=== PATIENT | male | born 1970 | race African-American/Black ===

== ENCOUNTER 2016-10-22 17:14 | Inpatient (IN) ==
--- NOTE | 2016-10-22 20:21 | XRay Report ---
Portable chest Date: 10/22/2016 Clinical history: Shortness of breath Comparison: 10/21/2016 Technique: Portable AP sitting chest Findings: The heart is larger in size with left ventricular prominence and uncoiling of aorta. Progressive parenchymal findings especially in the lower lung zones. Stable mediastinum with degenerative changes. Old healed fracture of the distal left clavicle with chronic volume loss in the distal right clavicle. Impression: The heart is larger in size with recurrent mild CHF. PROCEDURE INTERPRETED AT [facility] DEPARTMENT OF RADIOLOGY Final Report Signed by: Dr. Savannah Flanagan
[2016-10-22 20:46] LABS: Basophils % 0.2 % (0.0-0.8); Eosinophils # 0.2 10*3/uL (0.0-0.87); Hematocrit 24.8 VOL% (42.0-52.0); Hemoglobin 7.3 GM/DL (14.0-18.0); Immature Granulocytes % 0.7 %; Immature Granulocytes Absolute 0.09 #; Lymphocytes % 16.3 % (21.2-54.2); Mean Corpuscular HGB Conc 29.4 GM/DL (32-36); Mean Corpuscular Hemoglobin 24 PG (27-34); Mean Corpuscular Volume 80.5 FL (87-102); Mean Platelet Volume 8.8 FL (9.6-12.0); Monocytes # 1.3 10*3/uL (0.11-0.8); Monocytes % 10.8 % (1.7-12.7); Neutrophils # 8.4 10*3/uL (1.4-7.4); Platelet Count 283 T/CUMM (130-400); Red Blood Count 3.08 MC/CUMM (3.8-5.5); Red Cell Distribution Width 16.8 % (9.3-17.3); White Blood Count 12.1 T/CUMM (4-12)
[2016-10-22 20:58] LABS: INR 1.2; PT Patient Result 12.9 SECS; Partial Thromboplastin Time 35.3 SECS (0-40)
[2016-10-22 21:24] LABS: Albumin 2.3 G/DL (3.4-5.0); Bilirubin,Total 0.6 MG/DL (0.2-1.0); Osmolality,Calculated 294.7 MOS/KG (273-304); Potassium 3.7 MMOL/L (3.5-5.1)
[2016-10-22 21:27] LABS: Troponin I Only 0.101 NG/ML (0.00-0.045)
--- NOTE | 2016-10-22 22:18 | EKG Report ---
Stationary ECG Study [facility] ER Test Date: 10/22/2016 10:15:01 PM Pat Name: LEYLA MOREJON Department: Room: 524 Gender: M Habilitation Worker: : 1970 Requested by: Flip Swann Order Number: [id number] Reading MD: DAVE CARMONA Intervals [place] Rate: 80 P: 39 UT: 215 QRS: -5 QRSD: 112 T: 87 QT: 383 QTc: 419 Interpretive Statements SINUS RHYTHM WITH PROLONGED UT INTERVAL WITH FREQUENT VENTRICULAR PREMATURE COMPLEXES LEFT VENTRICULAR HYPERTROPHY AND ST-T CHANGE Electronically Signed On 10-23-16 15:07:26 CDT by DAVE CARMONA [email or web address]
--- NOTE | 2016-10-22 22:51 | Emergency Department Note ---
Tricia Stiles Brittany, am scribing for, and in the presence of, Flip Caceres MD 20:14. Morris Stiles William S., MD, personally performed the services described in this documentation, ascribed by Isabella Clarke in my presence, and it is both accurate and complete . Arrival - Arrival Chief Complaint: Weakness Stated Complaint: NEED BLOOD ED Nursing Triage Note: C/O WEAKNESS WITH ONSET THIS MORNING. PT STATES "I THINK I NEED BLOOD" Mode of Arrival: Stretcher Limitations: No Limitations Source: Patient, Family Time Seen by Provider: 10/22/16 19:16 - History of Present Illness HPI Narrative: This is 46 y/o black male,who presents to the ED with for further evaluation of near syncopal episode which happened minutes [employer]. His family states pt was at [facility] when he became weak and started to become very diaphoretic. He denies any CP or abd pain. His family reports he was seen here yesterday for SOB which started 1 week ago. He was told then that his H&H was low and he may need blood. Pt reports he had a near syncopal episode as well today. Pt also complains of a decreased PO Intkae, and mild diarrhea, but no melenaPt has no other complaints/pain in the ED at this time. Pt has a PMHx of renal failure, HTN dyslipidemia, thyroid disorder, peritoneal dialysis, GERD, and anemia. Pt has had a left kidney transplant, colonoscopy, vascular access devices, colonoscopy. Pt has a family medical Hx of cancer, diabetes, HTN, and stroke. Onset (ago): hour(s) (Started earlier today) Consistency: constant Severity: moderate Allergies/Adverse Reactions: Allergies Allergy/AdvReac Type Severity Reaction Status Date / Time No Known Allergies Allergy Verified 05/05/16 17:29 Home Medications: Home Medications Medication Instructions Recorded Confirmed Type Atorvastatin [Lipitor] 20 mg PO DAILY 05/05/16 10/22/16 History Calcium Carbonate Chew [Tums] 2 tablet PO BID PRN 05/05/16 10/22/16 History Clonidine HCl 0.3 mg PO BEDTIME 05/05/16 10/22/16 History Folic Acid Tab 1 mg PO DAILY 05/05/16 10/22/16 History Calcium Acetate [Phoslo] 1,334 mg PO TID W/MEALS 07/14/16 10/22/16 History Cinacalcet [Sensipar] 30 mg PO DAILY 07/14/16 10/22/16 History Magnesium 250 mg PO DAILY 07/14/16 10/22/16 History amLODIPine [Norvasc] 10 mg PO DAILY 07/14/16 10/22/16 History Nitroglycerin Sl Tab [Nitrostat] 0.4 mg SL Q5M PRN #0 tablet 08/19/16 10/22/16 Rx Carvedilol [Coreg] 25 mg PO BID 10/21/16 10/22/16 History Ticagrelor [Brilinta] 90 mg PO BID 10/21/16 10/22/16 History Review of System - Review of System 12 point system: reviewed and no additional remarkable complaints except as stated - Review of System Constitutional: Present: diaphoresis, weakness Cardiovascular: Present: other (Dyspnea). Absent: chest pain, syncope (Near syncopal episode) Gastrointestinal: Present: diarrhea. Absent: abdominal pain, melena Additional ROS comments: Decreased PO Intake Medical,Surgical,& Family Hx - Medical History Cardio: History of: Hypertension No history of: CHF, [place] Comment Only: Cardiovascular Problems (heart murmur) Neurology: No history of: Seizures Endocrine: History of: Dyslipidemia, Thyroid Disorder No history of: Diabetes Mellitus (NIDDM) Renal: History of: Dialysis (peritoneal), Renal Failure (transplant kidney chronicallly rejected), Renal Problems Gastrointestinal: History of: GERD Hematology: History of: Anemia (anemia chronic disease) - Surgical History Cardiac Surgeries: Sugical HX of: Cardiac Catheterization (08/18/16), Vascular Access Devices (today, temporary dialysis catheter per Dr. Fowler) Thoracic Surgeries: Surgical HX of;: Kidney (Renal Surgery) (L kidney transplant 2007) Abdominal Surgeries: Surgical HX of: Colonoscopy - Family History Family History: Reports;: Family Cancer (grandmother), Family Diabetes (mother) , Family Heart Disease (father, uncle), Family Hypertension (father, mother, sister), Family Stroke (mother) Denies;: Family Psychiatric Problems - Social History Smoking Status: Never smoker Frequency of Alcohol Use: None Type of Drug Use: None Exam Vital Signs: Vital Signs Temperature 98.7 F 10/22/16 17:18 Pulse Rate 85 10/22/16 22:22 Respiratory Rate 20 10/22/16 22:22 Blood Pressure 146/96 10/22/16 22:22 O2 Sat by Pulse Oximetry 100 10/22/16 22:22 - General General appearance: alert, in no apparent distress - Head Head exam: Present: atraumatic, normocephalic, normal inspection - Eye Eye exam: Present: normal appearance, PERRL, EOMI. Absent: nystagmus, miosis, mydriasis - ENT ENT exam: Present: normal exam, normal oropharynx, mucous membranes moist - Neck Neck exam: Present: normal inspection, full ROM, trachea midline. Absent: tenderness, meningismus, lymphadenopathy, thyromegaly - Chest Chest inspection: Present: normal inspection, symmetric chest wall rise. Absent : tenderness, rash, abscess - Respiratory Respiratory exam: Present: normal lung sounds bilaterally. Absent: rales, respiratory distress, rhonchi, stridor, wheezes - Cardiovascular Cardiovascular exam: Present: regular rate, normal rhythm, murmur (2 out of 6 mumur). Absent: rubs, gallop, clicks - Abdominal Exam Abdominal exam: Present: soft, normal bowel sounds. Absent: distention, tenderness, guarding, rebound, rigidity, Rovsing's sign, pulsatile mass - Rectal Exam Rectal exam: Present: deferred - Extremities Exam Extremities exam: Present: normal inspection, full ROM, normal capillary refill. Absent: tenderness, pedal edema, joint swelling, calf tenderness - Back Exam Back exam: Present: normal inspection, full ROM. Absent: tenderness, muscle spasm, rashes - Neurological Exam Neurological exam: Present: alert, oriented X3, CN II-XII intact. Absent: motor sensory deficit - Psychiatric Psychiatric exam: Present: normal affect, normal mood. Absent: depressed, agitated, anxious, flat affect, manic - Skin Skin exam: Present: warm, dry, intact, normal color. Absent: rash, cyanosis, diaphoresis, erythema, pallor, mottled Course - Reevaluation(s) Reevaluation #1: Patient is evaluated remains stable at this time in the emergency department. Patient does show evidence of some mild congestive heart failure on his chest x- ray. Patient also shows evidence of lateral T waves being inverted which were not present on his EKG a week ago. Patient has no chest pain or shortness of breath at this time and is resting comfortably. Given patient's near syncopal event today along with his significant cardiac history patient will be admitted at this time for further evaluation. Troponin was also noted to be slightly elevated which may be secondary to dialysis and his hemoglobin today is slightly decreased from 9.4-7.3 which may be a delusional effect secondary to the increased fluid load. Patient will be admitted to the hospitalist service Results - Labs CBC & BMP: 10/22/16 20:32 10/22/16 20:32 - Diagnostic Findings Procedure: Chest x-ray: report reviewed by me (The heart is larger in size with recurrent mild CHF. )
[2016-10-22] MEDS ORDERED: ACETAMINOPHEN 325 MG TABLET PO PRN (23:42)
[2016-10-22] MEDS ORDERED: ONDANSETRON 4 MG/2 ML VIAL IV PRN (23:42)
[2016-10-22] MEDS ORDERED: FUROSEMIDE 100 MG/10 ML VIAL IV STA (23:49)
--- NOTE | 2016-10-22 23:57 | Hospitalist History & Physical ---
Assessment and Plan (1) Dyspnea Status: Acute Assessment and plan: Patient dyspnea may be multifactorial. He has anemia and CHF/fluid overload due to renal disease. Although his current weight is not huge change from his dry weight it is possible that her dry weight has to be adjusted. In addition patient may have this due to CHF. He has a history of coronary artery disease. Patient is still have little residual renal function I will give dose of 4 less than 120 mg and metolazone 10 mg in the ER. Consult cardiology and nephrology to assist with management. It seems patient has a also poor compliance with the diet he is consuming high sodium diet which he also was addressed but likely need formal education. I have also requested to repeat the echocardiogram Current Visit: No (2) End stage renal disease Status: Acute Assessment and plan: Consult nephrology for dialysis management Current Visit: Yes (3) Severe anemia Status: Chronic Assessment and plan: I have ordered a stool Hemoccult and anemia profile including iron studies will start on Protonix also Current Visit: No (4) Hypertension Status: Chronic Assessment and plan: Watch blood pressure continue home medications Current Visit: Yes History of Present Illness Chief complaint: Shortness of breath History of present illness: Mr. Foley is a 46 year old male with history of end-stage renal disease coronary artery disease and hypertension. He had a renal transplant in 2007 but failed and started on hemodialysis in April 2016. He was switched to peritoneal dialysis in July this year. He was 2.5% dextrose as a dialysate. He had a cardiac cath in August 2016 and underwent PCI with RCA and the proximal circumflex stent. He is on antiplatelet agent and compliant to medications. Also noted documented to have a ejection fraction of 45% in last discharge summary. Echocardiogram I will reviewed in July 2016 reported left ventricular ejection fraction of 55% with diastolic dysfunction. He came to the ER with complaint of shortness of breath. According to patient he he has been having shortness of breath for about the last 1 week. He was seen in the ER yesterday and had lab work showed hemoglobin 9.4 hematocrit 31.6 he was discharged but today he tried to walk in the [employer] again but got out of breath and almost passed out but denied any dizziness or chest pain associated no palpitation. He had some cold sweats with this pass out he is reported no fever he has cough but nonproductive. His dyspnea is more alert on exertion and denied any orthopnea but I see he is sitting propped up in bed which he prefers. He still makes urine and a small amount. He also has reported not been able to eat well for last 2-3 days without any nausea vomiting or abdominal pain he has a loose stool today but no melena or hematochezia today in the ER his lab work showed hemoglobin 7.3 hematocrit 24.8 he received erythrocyte stimulating agent yesterday which he received every 2 weeks. His dry weight is at 100 kg and the at his home dialysis unit he was 105 kg. Today his weight is documented 229 pounds Home Medications Medication Instructions Recorded Confirmed Type Atorvastatin [Lipitor] 20 mg PO DAILY 05/05/16 10/22/16 History Calcium Carbonate Chew [Tums] 2 tablet PO BID PRN 05/05/16 10/22/16 History Clonidine HCl 0.3 mg PO BEDTIME 05/05/16 10/22/16 History Folic Acid Tab 1 mg PO DAILY 05/05/16 10/22/16 History Calcium Acetate [Phoslo] 1,334 mg PO TID W/MEALS 07/14/16 10/22/16 History Cinacalcet [Sensipar] 30 mg PO DAILY 07/14/16 10/22/16 History Magnesium 250 mg PO DAILY 07/14/16 10/22/16 History amLODIPine [Norvasc] 10 mg PO DAILY 07/14/16 10/22/16 History Nitroglycerin Sl Tab [Nitrostat] 0.4 mg SL Q5M PRN #0 tablet 08/19/16 10/22/16 Rx Carvedilol [Coreg] 25 mg PO BID 10/21/16 10/22/16 History Ticagrelor [Brilinta] 90 mg PO BID 10/21/16 10/22/16 History Allergies Allergy/AdvReac Type Severity Reaction Status Date / Time No Known Allergies Allergy Verified 05/05/16 17:29 Medical,Surgical,& Family Hx - Medical History Cardio: History of: Hypertension No history of: CHF, [place] Comment Only: Cardiovascular Problems (heart murmur) Neurology: No history of: Seizures Endocrine: History of: Dyslipidemia, Thyroid Disorder No history of: Diabetes Mellitus (NIDDM) Renal: History of: Dialysis (peritoneal), Renal Failure (transplant kidney chronicallly rejected), Renal Problems Gastrointestinal: History of: GERD Hematology: History of: Anemia (anemia chronic disease) - Surgical History Cardiac Surgeries: Sugical HX of: Cardiac Catheterization (08/18/16), Vascular Access Devices (today, temporary dialysis catheter per Dr. Fowler) Thoracic Surgeries: Surgical HX of;: Kidney (Renal Surgery) (L kidney transplant 2007) Abdominal Surgeries: Surgical HX of: Colonoscopy - Family History Family History: Reports;: Family Cancer (grandmother), Family Diabetes (mother) , Family Heart Disease (father, uncle), Family Hypertension (father, mother, sister), Family Stroke (mother) Denies;: Family Psychiatric Problems - Social History Smoking Status: Never smoker Frequency of Alcohol Use: None Type of Drug Use: None - Constitutional Constitutional: Present: anorexia. Absent: chills, fever(s), weight loss - Cardiovascular Cardiovascular: Present: dyspnea, dyspnea on exertion. Absent: chest pain at rest, chest pain with activity, orthopnea, palpitations - Respiratory Respiratory: Present: cough, dyspnea on exertion. Absent: wheezing - Gastrointestinal Gastrointestinal: Present: loose stools. Absent: abdominal pain, hematemesis, hematochezia, melena, nausea, vomiting - Musculoskeletal Musculoskeletal: Absent: joint swelling, myalgias - Neurological Neurological: Absent: confusion, dizziness, frequent falls, tremor(s) Exam - Constitutional Vitals: Period Temp Pulse Resp BP Sys/Patel Pulse Ox Last 24 Hr 98.7 F 85-103 18-20 116-146/75-96 97-100 General appearance: mild distress, over weight - Head Head exam: Present: normal inspection, normocephalic, atraumatic - Eye Eye exam: Present: EOMI Pupils: Present: LINDA, normal accommodation - Respiratory Respiratory exam: Absent: accessory muscle use, chest wall tenderness, rales ( Bilateral equal air entry with the cramps at the bases), rhonchi - Cardiovascular Cardiovascular exam: Present: JVD, regular rate and rhythm. Absent: tachycardia - GI/Abdominal GI/Abdominal exam: Present: normal bowel sounds, soft, other (PD catheter in place). Absent: tenderness - Neurological Exam Neurological exam: Present: alert, oriented X3 Results - Labs CBC & BMP: 10/22/16 20:32 10/22/16 20:32 Lab Results: I have reviewed the past 24 hour labs
[2016-10-23] MEDS ORDERED: NITROGLYCERIN SL 0.4 MG TABLET SL PRN (00:16)
[2016-10-23] MEDS ORDERED: FUROSEMIDE 100 MG/10 ML VIAL ONE (00:23)
[2016-10-23] MEDS ORDERED: FUROSEMIDE 20 MG/2 ML VIAL ONE (00:23)
[2016-10-23] MEDS ORDERED: metOLazone 5 MG TABLET PO ONE (00:30)
[2016-10-23 07:31] LABS: Basophils % 0.3 % (0.0-0.8); Eosinophils # 0.3 10*3/uL (0.0-0.87); Eosinophils % 2.3 % (0.00-10.9); Hematocrit 24.7 VOL% (42.0-52.0); Hemoglobin 7.1 GM/DL (14.0-18.0); Immature Granulocytes % 0.8 %; Immature Granulocytes Absolute 0.09 #; Lymphocytes # 2.2 10*3/uL (1.4-4.0); Mean Corpuscular HGB Conc 28.7 GM/DL (32-36); Mean Corpuscular Hemoglobin 23 PG (27-34); Mean Corpuscular Volume 80.7 FL (87-102); Mean Platelet Volume 9.2 FL (9.6-12.0); Monocytes # 1.3 10*3/uL (0.11-0.8); Neutrophils # 7.7 10*3/uL (1.4-7.4); Neutrophils % 66.6 % (38.7-73.9); Platelet Count 335 T/CUMM (130-400); Red Blood Count 3.06 MC/CUMM (3.8-5.5); Red Cell Distribution Width 17.1 % (9.3-17.3); White Blood Count 11.5 T/CUMM (4-12)
[2016-10-23 07:33] LABS: Basophils % 0.2 % (0.0-0.8); Eosinophils # 0.3 10*3/uL (0.0-0.87); Eosinophils % 2.2 % (0.00-10.9); Hematocrit 24.6 VOL% (42.0-52.0); Hemoglobin 7.2 GM/DL (14.0-18.0); Immature Granulocytes % 0.6 %; Immature Granulocytes Absolute 0.07 #; Lymphocytes # 2.2 10*3/uL (1.4-4.0); Lymphocytes % 18.9 % (21.2-54.2); Mean Corpuscular HGB Conc 29.3 GM/DL (32-36); Mean Corpuscular Hemoglobin 24 PG (27-34); Mean Corpuscular Volume 80.9 FL (87-102); Mean Platelet Volume 9.3 FL (9.6-12.0); Monocytes # 1.2 10*3/uL (0.11-0.8); Monocytes % 10.2 % (1.7-12.7); Neutrophils # 7.9 10*3/uL (1.4-7.4); Neutrophils % 67.9 % (38.7-73.9); Platelet Count 334 T/CUMM (130-400); Red Blood Count 3.04 MC/CUMM (3.8-5.5); Red Cell Distribution Width 17.1 % (9.3-17.3); White Blood Count 11.6 T/CUMM (4-12)
[2016-10-23 08:08] LABS: Calcium 8.2 MG/DL (8.5-10.1); Osmolality,Calculated 296.5 MOS/KG (273-304); Potassium 3.5 MMOL/L (3.5-5.1)
[2016-10-23 08:11] LABS: Folate > 24.0 NG/ML (5.4-24.0); Vitamin B12 1015 PG/ML (211-911)
[2016-10-23 08:14] LABS: % Iron Saturation 19.7 % (18-50); Ferritin 3319.4 ng/ml (26-388)
[2016-10-23] MEDS: TICAGRELOR 90 MG TABLET PO SCH ×2 (08:23→20:12)
[2016-10-23] MEDS: CINACALCET 30 MG TABLET PO SCH (08:23)
[2016-10-23] MEDS: ATORVASTATIN 20 MG TABLET PO SCH (08:23)
[2016-10-23] MEDS: CALCIUM ACETATE 667 MG CAPSULE PO SCH ×3 (08:23→16:22)
[2016-10-23] MEDS: amLODIPine 10 MG TABLET PO SCH (08:23)
[2016-10-23] MEDS: FOLIC ACID 1 MG TABLET PO SCH (08:23)
[2016-10-23] MEDS: CARVEDILOL 25 MG TABLET PO SCH ×2 (08:23→20:12)
[2016-10-23] MEDS: PANTOPRAZOLE 40 MG VIAL IV SCH (08:23)
[2016-10-23 08:25] LABS: Hypochromasia 2+; Microcytosis 2+
[2016-10-23 09:13] LABS: Sedimentation Rate-Westergren 124 MM/HR (0-15)
--- NOTE | 2016-10-23 10:59 | Nephrology Consult Note ---
History of Present Illness Chief complaint: ESRD History of present illness: Mr. Foley is a 46 year old male admitted with SEPULVEDA. He denies orthopnea. He's had no fever or sputum production. He has ESRD and is on peritoneal dialysis. He has been using 2.5% exchanges. Home Medications Medication Instructions Recorded Confirmed Type Atorvastatin [Lipitor] 20 mg PO DAILY 05/05/16 10/22/16 History Calcium Carbonate Chew [Tums] 2 tablet PO BID PRN 05/05/16 10/22/16 History Clonidine HCl 0.3 mg PO BEDTIME 05/05/16 10/22/16 History Folic Acid Tab 1 mg PO DAILY 05/05/16 10/22/16 History Calcium Acetate [Phoslo] 1,334 mg PO TID W/MEALS 07/14/16 10/22/16 History Cinacalcet [Sensipar] 30 mg PO DAILY 07/14/16 10/22/16 History Magnesium 250 mg PO DAILY 07/14/16 10/22/16 History amLODIPine [Norvasc] 10 mg PO DAILY 07/14/16 10/22/16 History Nitroglycerin Sl Tab [Nitrostat] 0.4 mg SL Q5M PRN #0 tablet 08/19/16 10/22/16 Rx Carvedilol [Coreg] 25 mg PO BID 10/21/16 10/22/16 History Ticagrelor [Brilinta] 90 mg PO BID 10/21/16 10/22/16 History Allergies Allergy/AdvReac Type Severity Reaction Status Date / Time No Known Allergies Allergy Verified 05/05/16 17:29 Medical,Surgical,& Family Hx - Medical History Cardio: History of: Hypertension No history of: CHF, [place] Comment Only: Cardiovascular Problems (heart murmur) Neurology: No history of: Seizures Endocrine: History of: Dyslipidemia, Thyroid Disorder No history of: Diabetes Mellitus (NIDDM) Respiratory: History of: Obstructive Sleep Apnea Renal: History of: Dialysis (peritoneal), Renal Failure (transplant kidney chronicallly rejected), Renal Problems Gastrointestinal: History of: GERD Musculoskeletal: No history of: Amputation Hematology: History of: Anemia (anemia chronic disease) - Surgical History Cardiac Surgeries: Sugical HX of: Cardiac Catheterization (08/18/16), Vascular Access Devices (today, temporary dialysis catheter per Dr. Fowler) Thoracic Surgeries: Surgical HX of;: Kidney (Renal Surgery) (L kidney transplant 2008), Organ Transplant (rejected kidney transplant) Patient denies;: Lobectomy Neurologic Surgeries: Patient denies: Neurologic Surgery HEENT Surgeries: Patient denies: Thyroid Surgery Abdominal Surgeries: Surgical HX of: Colonoscopy - Family History Family History: Reports;: Family Cancer (grandmother), Family Diabetes (mother) , Family Heart Disease (father, uncle), Family Hypertension (father, mother, sister), Family Stroke (mother) Denies;: Family Psychiatric Problems - Social History Smoking Status: Never smoker Frequency of Alcohol Use: None Type of Drug Use: None Review of Systems 12 point system: reviewed and no additional remarkable complaints except as stated Exam - Vital Signs Vital signs: Period Temp Pulse Resp BP Sys/Patel Pulse Ox Last 24 Hr 98.4 F-100.4 F 70-108 15-20 130-153/59-72 92-100 Exam: Gen.: Alert and oriented x3. ENT: Pupils equal round reactive to light. EOMs intact. Mucous membranes moist. Neck: Supple. No JVD or bruit. Cardiovascular: Regular rate and rhythm. No murmur rub or gallop Lungs: Crackles in the bases right greater than left Abdomen: Soft. Nontender. Positive bowel sounds. PD catheter shows no sign of infection Extremities: Trace edema Results - Labs CBC & BMP: 10/23/16 07:12 10/23/16 07:12 Assessment and Plan (1) End stage renal disease Status: Acute Assessment and plan: 46-year-old man admitted with: * ESRD. He is clinically mildly volume overloaded. Peritoneal dialysis will continue with alternating 2.5% and 4.25% exchanges * Dyspnea. Secondary to volume overload. Anemia may be contributing. * Hypertension. Control * Anemia. Epogen will be adjusted Current Visit: Yes (2) Hypertension Status: Chronic Current Visit: Yes (3) Dyspnea Status: Acute Current Visit: No
--- NOTE | 2016-10-23 11:46 | Hospitalist Progress Note ---
Assessment and Plan (1) Severe anemia Status: Chronic Assessment and plan: Anemia of chronic disease related to chronic kidney disease. Current Visit: No (2) Kidney transplant failure Problem details: continuing immunosuppressant therapy for now Status: Chronic Current Visit: No (3) ESRD due to hypertension Status: Chronic Assessment and plan: On peritoneal dialysis. Current Visit: No (4) Chronic renal failure, stage 5 Status: Acute Current Visit: No (5) Dyspnea Status: Acute Assessment and plan: Related to fluid overload. Treated with peritoneal dialysis in an effort to diurese the patient. Current Visit: No Qualifiers: Dyspnea type: dyspnea on exertion Qualified Code(s): R06.09 - Other forms of dyspnea Hospitalist: Subjective Interval history: Patient seen and examined. He looks and feels much better this morning. He has had a good response with peritoneal dialysis. Shortness of breath has improved. He can likely be discharged home tomorrow if his peritoneal dialysis is successful in pulling off fluid. Exam - Constitutional Vitals: Period Temp Pulse Resp BP Sys/Patel Pulse Ox Last 24 Hr 98.4 F-100.4 F 70-108 15-20 130-153/59-72 92-100 Exam: Constitutional System: Mild distress. No tremulousness. Head: Normocephalic, atraumatic. Ears, Nose and Throat System: No pain or tenderness. No epistaxis or discharge Eyes System: Pupils equal, round, and reactive. Extraocular muscles intact. Neck: Supple, without adenopathy, No jugular venous distention. No thyromegaly, neck mass, or prior surgery apparent. Respiratory System: Chest clear to auscultation. Cardiovascular System: Heart with regular rate and rhythm. No murmur. GI System: Abdomen soft, nontender. Normo active bowel sounds present. Musculoskeletal System: limbs with no pedal edema. Full distal pulses. Neurological System: No discernable sensory deficit. No aphasia Psychiatric System: Conversation is rational Results - Labs CBC & BMP: 10/23/16 07:12 10/23/16 07:12 Lab Results: I have reviewed the past 24 hour labs
--- NOTE | 2016-10-23 13:11 | Cardiology Consult Note ---
Assessment and Plan (1) Dyspnea Status: Acute Assessment and plan: I think the patient's dyspnea is multifactorial. He does have a significant anemia. He also has some volume overload related to his end-stage renal disease. His dialysis has been adjusted to try to correct for this. He does have coronary artery disease, but is free of any anginal symptoms. I don't think his symptoms represent an acute coronary syndrome. He is improved with volume reduction. I think I would continue treatment as you are. I don't see any need for a change in management from a cardiac standpoint. I will check an echocardiogram. Current Visit: No Qualifiers: Dyspnea type: dyspnea on exertion Qualified Code(s): R06.09 - Other forms of dyspnea (2) Anemia Status: Acute Assessment and plan: Treatment as per nephrology. Current Visit: Yes (3) Coronary artery disease Status: Acute Assessment and plan: He had stents in the circumflex and right coronary artery in August. He has been free of any angina since that time. I think that his increased dyspnea is primarily related to volume retention secondary to end-stage renal disease. Current Visit: Yes (4) History of coronary artery stent placement Status: Acute Current Visit: Yes (5) End stage renal disease Status: Acute Current Visit: Yes (6) Hypertension Status: Chronic Current Visit: Yes (7) Hyperlipidemia Status: Chronic Current Visit: No History of Present Illness - Consult Narrative History of present illness: Mr. Foley is a 46 year old male with a history of multiple medical problems including coronary artery disease, end-stage renal disease on peritoneal dialysis, and hypertension. The patient had stenting of his circumflex coronary artery with a 2.75 x 15 mm sounds Alpine drug-eluting stent and 3.5 x 18 mm Xience Alpine drug-eluting stent in the proximal right coronary artery in August of this year. Since that time he has done well. Yesterday he began having increasing dyspnea on exertion walking in [facility]. He has not had any chest pain or anginal symptoms. His weight is up a bit over his baseline. It appears that his dyspnea is related to volume overload. His EKG does not show any acute changes. He has no palpitations or syncope. He has no angina. Since admission he has been diuresed a bit more and is feeling much better. Nephrology has seen him and has made some adjustments in his perineal dialysis. Cardiology was asked to see him to see if this appeared to be related to any acute coronary issue. Based on his symptoms, clinical improvement with volume reduction, and EKG, I do not think there is anything acute going on with his coronary anatomy. CC: Sohail Bowman MD - Home Medications and Allergies Home Medications: Home Medications Medication Instructions Recorded Confirmed Type Atorvastatin [Lipitor] 20 mg PO DAILY 05/05/16 10/22/16 History Calcium Carbonate Chew [Tums] 2 tablet PO BID PRN 05/05/16 10/22/16 History Clonidine HCl 0.3 mg PO BEDTIME 05/05/16 10/22/16 History Folic Acid Tab 1 mg PO DAILY 05/05/16 10/22/16 History Calcium Acetate [Phoslo] 1,334 mg PO TID W/MEALS 07/14/16 10/22/16 History Cinacalcet [Sensipar] 30 mg PO DAILY 07/14/16 10/22/16 History Magnesium 250 mg PO DAILY 07/14/16 10/22/16 History amLODIPine [Norvasc] 10 mg PO DAILY 07/14/16 10/22/16 History Nitroglycerin Sl Tab [Nitrostat] 0.4 mg SL Q5M PRN #0 tablet 08/19/16 10/22/16 Rx Carvedilol [Coreg] 25 mg PO BID 10/21/16 10/22/16 History Ticagrelor [Brilinta] 90 mg PO BID 10/21/16 10/22/16 History Allergies/Adverse Reactions: Allergies Allergy/AdvReac Type Severity Reaction Status Date / Time No Known Allergies Allergy Verified 05/05/16 17:29 12 point system: reviewed and no additional remarkable complaints except as stated Medical,Surgical,& Family Hx - Medical History Cardio: History of: Hypertension No history of: CHF, AR Comment Only: Cardiovascular Problems (heart murmur) Neurology: No history of: Seizures Endocrine: History of: Dyslipidemia, Thyroid Disorder No history of: Diabetes Mellitus (NIDDM) Respiratory: History of: Obstructive Sleep Apnea Renal: History of: Dialysis (peritoneal), Renal Failure (transplant kidney chronicallly rejected), Renal Problems Gastrointestinal: History of: GERD Musculoskeletal: No history of: Amputation Hematology: History of: Anemia (anemia chronic disease) - Surgical History Cardiac Surgeries: Sugical HX of: Cardiac Catheterization (08/18/16), Vascular Access Devices (today, temporary dialysis catheter per Dr. Fowler) Thoracic Surgeries: Surgical HX of;: Kidney (Renal Surgery) (L kidney transplant 2007), Organ Transplant (rejected kidney transplant) Patient denies;: Lobectomy Neurologic Surgeries: Patient denies: Neurologic Surgery HEENT Surgeries: Patient denies: Thyroid Surgery Abdominal Surgeries: Surgical HX of: Colonoscopy - Family History Family History: Reports;: Family Cancer (grandmother), Family Diabetes (mother) , Family Heart Disease (father, uncle), Family Hypertension (father, mother, sister), Family Stroke (mother) Denies;: Family Psychiatric Problems - Social History Smoking Status: Never smoker Frequency of Alcohol Use: None Type of Drug Use: None Physical Examination Vital Signs Temp Pulse Resp BP Pulse Ox 98.7 F 103 H 18 116/75 97 10/22/16 17:18 10/22/16 17:18 10/22/16 17:18 10/22/16 17:18 10/22/16 17:18 Other: General: Appears well developed, well nourished, no apparent distress HEENT: Normocephalic, atraumatic Neck: Supple Neck, Midline Trachea Cardiac: Reg Rate and Rhythm, No Murmur, no gallop, no rub Lungs: Clear to auscultation, No Wheeze, Rales, Rhonchi Neuro: Cranial Nerve 2-12 Intact, Motor Function Grossly Intact Abdomen: Soft, Active Bowel Sounds, No Masses, No Pulsations/Bruits Skin: Normal color, no rash Extremities: No Clubbing, No Cyanosis, No Edema, Normal Upper Extr. Pulses Musculoskeletal: No acute abnormality noted Psychiatric: The patient does not appear to be anxious or depressed Result/EKG - Labs CBC & BMP: 10/23/16 07:12 10/23/16 07:12 Lab Results: I have reviewed the past 24 hour labs Labs: Laboratory Results - last 24 hr 10/23/16 10/23/16 10/23/16 07:12 07:12 07:12 WBC 11.5 RBC 3.06 L Hgb 7.1 L Hct 24.7 L MCV 80.7 L MCH 23 L MCHC 28.7 L RDW 17.1 Plt Count 335 MPV 9.2 L Neut % (Auto) 66.6 Lymph % (Auto) 19.0 L [place] % (Auto) 11.0 Eos % (Auto) 2.3 Baso % (Auto) 0.3 Neut # (Auto) 7.7 H Lymph # (Auto) 2.2 [place] # (Auto) 1.3 H Eos # (Auto) 0.3 Baso # (Auto) 0.0 Immature Gran % 0.8 Nucleated RBC % 0.0 Immature Gran # 0.09 Nucleated RBCs # 0.00 Hypochromasia 2+ Microcytosis 2+ ESR Westergren Absolute Retic Percent Retic Retic Hgb Equivalent Sodium 139 Potassium 3.5 Chloride 98 Carbon Dioxide 30 Anion Gap 14.5 BUN 68 H Creatinine 15.80 H GFR Calculation 5 BUN/Creatinine Ratio 4.00 L Glucose 106 Calculated Osmolality 296.5 Calcium 8.2 L Iron 26 L TIBC 132 L % Saturation 19.7 Ferritin 3319.4 H Lactate Dehydrogenase 208 Vitamin B12 Folate 10/23/16 10/23/16 07:12 07:12 WBC 11.6 RBC 3.04 L Hgb 7.2 L Hct 24.6 L MCV 80.9 L MCH 24 L MCHC 29.3 L RDW 17.1 Plt Count 334 MPV 9.3 L Neut % (Auto) 67.9 Lymph % (Auto) 18.9 L [place] % (Auto) 10.2 Eos % (Auto) 2.2 Baso % (Auto) 0.2 Neut # (Auto) 7.9 H Lymph # (Auto) 2.2 [place] # (Auto) 1.2 H Eos # (Auto) 0.3 Baso # (Auto) 0.0 Immature Gran % 0.6 Nucleated RBC % 0.0 Immature Gran # 0.07 Nucleated RBCs # 0.00 Hypochromasia Microcytosis ESR Westergren 124 H Absolute Retic 0.0 Percent Retic 1.6 H Retic Hgb Equivalent 25.7 L Sodium Potassium Chloride Carbon Dioxide Anion Gap BUN Creatinine GFR Calculation BUN/Creatinine Ratio Glucose Calculated Osmolality Calcium Iron TIBC % Saturation Ferritin Lactate Dehydrogenase Vitamin B12 1015 H Folate > 24.0 H - EKG EKG results: interpreted by me
--- NOTE | 2016-10-23 14:45 | ECHO Report ---
Brody Foley Exam Date: 10/23/2016 09:21 Referring Physician: Technologist: Elsie Man Age: 46 Ht (in): 73 Wt (lb): 229 Gender: M Exam Location: [facility] Echo Indications: hyperlipidemia, HTN, ESRD, Dyspnea BP: 135 / 59 HR: 93 Rhythm: Sinus Technical Quality: IMPRESSIONS EF 60 %. Moderate concentric left ventricular hypertrophy. Grade I/IV diastolic dysfunction (abnormal relaxation filling pattern), normal to mildly elevated filling pressures. Normal right ventricular size and systolic function. The right atrium is mildly enlarged. The left atrium is mildly enlarged. Mildly thickened mitral valve. Mitral annular calcification. Trace mitral valve regurgitation. Aortic valve sclerosis. Trace to mild aortic valve regurgitation. Mild tricuspid valve regurgitation. [id number] mmHG. Morphologically normal pulmonic valve. No pericardial effusion. Normal size aortic root and proximal ascending aorta. MEASUREMENTS (Male / Female) Normal Values 2D ECHO LV Diastolic Diameter PLAX 5.0 cm 4.2 - 5.9 / 3.9 - 5.3 cm LV Systolic Diameter PLAX 3.1 cm LV Fractional Shortening PLAX 38.8 % IVS Diastolic Thickness 2.0 cm 0.6 - 1.0 / 0.6 - 0.9 cm LVPW Diastolic Thickness 1.8 cm 0.6 - 1.0 / 0.6 - 0.9 cm RV Internal Dim ED PLAX 3.1 cm Aortic Root Diameter 2.6 cm LA Systolic Diameter LX 5.4 cm 3.0 - 4.0 / 2.7 - 3.8 cm DOPPLER TR Peak Velocity 185.0 cm/s TR Peak Gradient 13.7 mmHg FINDINGS Left Ventricle EF 60 %. Moderate concentric left ventricular hypertrophy. Grade I/IV diastolic dysfunction (abnormal relaxation filling pattern), normal to mildly elevated filling pressures. Right Ventricle Normal right ventricular size and systolic function. Right Atrium The right atrium is mildly enlarged. Left Atrium The left atrium is mildly enlarged. Mitral Valve Mildly thickened mitral valve. Mitral annular calcification. Trace mitral valve regurgitation. Aortic Valve Aortic valve sclerosis. Trace to mild aortic valve regurgitation. Tricuspid Valve Morphologically normal tricuspid valve. Mild tricuspid valve regurgitation. [id number] mmHG. Pulmonic Valve Morphologically normal pulmonic valve. Pericardium No pericardial effusion. Aorta Normal size aortic root and proximal ascending aorta. Morgan Parrish (Electronically Signed) Final Date: 23 October 2016 14:43
[2016-10-23] MEDS: BENZONATATE 100 MG CAPSULE PO SCH (21:34)
[2016-10-24 07:53] LABS: Hemoglobin A1 (Alkaline) 98.2 % (96.5-98.5); Hemoglobin A2 (Alkaline) 1.8 % (1.5-3.5)
[2016-10-24] MEDS: PANTOPRAZOLE 40 MG VIAL IV SCH (08:46)
[2016-10-24] MEDS: BENZONATATE 100 MG CAPSULE PO SCH (08:46)
[2016-10-24] MEDS: TICAGRELOR 90 MG TABLET PO SCH (08:47)
[2016-10-24] MEDS: CALCIUM ACETATE 667 MG CAPSULE PO SCH (08:47)
[2016-10-24] MEDS: amLODIPine 10 MG TABLET PO SCH (08:47)
[2016-10-24] MEDS: CINACALCET 30 MG TABLET PO SCH (08:47)
[2016-10-24] MEDS: FOLIC ACID 1 MG TABLET PO SCH (08:47)
[2016-10-24] MEDS: ATORVASTATIN 20 MG TABLET PO SCH (08:48)
[2016-10-24] MEDS: CARVEDILOL 25 MG TABLET PO SCH (08:48)
--- NOTE | 2016-10-24 09:46 | Discharge Summary ---
Hospital Course - Hospital Course Hospital Course: The patient has end-stage renal disease and is on peritoneal dialysis. He came to the hospital with shortness of breath and was found to be hypervolemic. The patient takes 2-1/2% solution exchanges. Dr. Sosa evaluated the patient and stepped up his regimen to 2-1/2% alternating with 4-1/4% solution. The patient had excellent improvement of the symptoms and is now ready for discharge home. The patient was also seen by Dr. Simeon Rao and cardiology consultation. Dr. Rao felt that the patient's symptoms were related to volume and would improve with nephrology interventions. On the date of discharge, chest is clear and abdomen soft. 32 minutes were required in [id number] documentation and discharge planning. - Time spent with patient Time with patient DS: Greater than 30 minutes Diagnosis - Discharge Diagnosis (1) Chronic renal failure, stage 5 Status: Chronic (2) Anemia Status: Chronic Discharge Plan - Discharge Data Disposition: Disch To Home/Self Care Condition at Discharge: Stable Discharge Diet: advance to your usual diet Activity: resume usual activities as tolerated - Discharge Medications Continue Atorvastatin [Lipitor] 20 mg PO DAILY Calcium Carbonate Chew [Tums] 2 tablet PO BID PRN PRN Reason: Heartburn Folic Acid Tab 1 mg PO DAILY Clonidine HCl 0.3 mg PO BEDTIME Calcium Acetate [Phoslo] 1,334 mg PO TID W/MEALS amLODIPine [Norvasc] 10 mg PO DAILY Nitroglycerin Sl Tab [Nitrostat] 0.4 mg SL Q5M PRN #0 tablet PRN Reason: Chest Pain Magnesium 250 mg PO DAILY Cinacalcet [Sensipar] 30 mg PO DAILY Ticagrelor [Brilinta] 90 mg PO BID Carvedilol [Coreg] 25 mg PO BID - Follow Up or Referral Follow Up: John Sosa MD [Physician] - - Forms/Instructions Additional Discharge Instructions: Alternate peritoneal dialysis solutions with 2.5% and 4.25% solution. Exam - Constitutional Vitals: Period Temp Pulse Resp BP Sys/Patel Pulse Ox Last 24 Hr 98.4 F-99.6 F 85-98 16-20 122-138/54-75 93-98 Discharge Results Procedures and tests throughout hospitalization: Pending Orders 10/23/16 01:20 Occult Blood, Stool Routine 10/23/16 07:12 Iron, Liver Ts IN AM Labs on day of discharge: Labs from last 24 hours 10/23/16 10/23/16 10/23/16 07:12 07:12 07:12 WBC 11.6 RBC 3.04 L Hgb 7.2 L Hct 24.6 L MCV 80.9 L MCH 24 L MCHC 29.3 L RDW 17.1 Plt Count 334 MPV 9.3 L Neut % (Auto) 67.9 Lymph % (Auto) 18.9 L [place] % (Auto) 10.2 Eos % (Auto) 2.2 Baso % (Auto) 0.2 Neut # (Auto) 7.9 H Lymph # (Auto) 2.2 [place] # (Auto) 1.2 H Eos # (Auto) 0.3 Baso # (Auto) 0.0 Immature Gran % 0.6 Nucleated RBC % 0.0 Immature Gran # 0.07 Nucleated RBCs # 0.00 Anemia Panel Interp See comment ESR Westergren 124 H Absolute Retic 0.0 Percent Retic 1.6 H Retic Hgb Equivalent 25.7 L Hemoglobin A1 98.2 Hemoglobin A2 1.8 Hemoglobin C Not Reportable Hemoglobin D Not Reportable Hemoglobin E Not Reportable Hemoglobin F (ELP) Not Reportable Hemoglobin G Not Reportable Hemoglobin S Not Reportable Hgb ELP Interp See comment Vitamin B12 1015 H Folate > 24.0 H ROBERT (IgG-AHG) Negative ROBERT, Polyspecific Negative DS: Provider Date of admission: 10/22/16 23:42 Primary care physician: Rachelle Esteban DO Attending physician on admission: Sohail Bowman MD Consults: 10/22/16 23:51 Consult to Physician [CONS] Routine Comment: chf/ esrd s/p recent PCI Consulting Provider: Juanjose Parrish Consult to Specialist Group: Cardiology When should Consulting Provider be notified: In am Person Notified: TJ Date Notified: 10/23/16 Time Notified: 08:23 10/23/16 02:48 Consult to Pharmacy [CONS] Routine Reason for Pharmacy Consult: Adjust Meds Renal Funct Discharging clinician: Ricardo Robertson MD
[2016-10-24 11:16] VITALS: BP 139/86
== END 2016-10-24 11:30 | disposition home or self-care (01) | DRG 640 ==
LOC: N.ED 17:14 → N.EDINP 23:42 → SUATTDRO 23:42 → N.5E 10-23 00:18
PROVIDERS: ADMIT Family Medicine; ATTEND Internal Medicine

== ENCOUNTER 2017-06-23 12:14 | Inpatient (IN) ==
[2017-06-23] MEDS ORDERED: diphenhydrAMINE 50 MG/1 ML VIAL IV STA (16:24)
[2017-06-23] MEDS ORDERED: methylPREDNISolone SOD SUC 125 MG/2 ML VIAL IV STA (16:24)
[2017-06-23 17:04] LABS: Basophils % 0.2 % (0.0-0.8); Eosinophils # 0.1 10*3/uL (0.0-0.87); Eosinophils % 0.9 % (0.00-10.9); Hematocrit 36.7 VOL% (42.0-52.0); Hemoglobin 11.6 GM/DL (14.0-18.0); Immature Granulocytes % 1.7 %; Immature Granulocytes Absolute 0.24 #; Lymphocytes # 2.3 10*3/uL (1.4-4.0); Lymphocytes % 16.2 % (21.2-54.2); Mean Corpuscular HGB Conc 31.6 GM/DL (32-36); Mean Corpuscular Hemoglobin 26 PG (27-34); Mean Corpuscular Volume 83.4 FL (87-102); Mean Platelet Volume 9.1 FL (9.6-12.0); Monocytes # 1.2 10*3/uL (0.11-0.8); Monocytes % 8.4 % (1.7-12.7); Neutrophils # 10.4 10*3/uL (1.4-7.4); Neutrophils % 72.6 % (38.7-73.9); Platelet Count 186 T/CUMM (130-400); Red Cell Distribution Width 18.4 % (9.3-17.3); White Blood Count 14.3 T/CUMM (4-12)
[2017-06-23] MEDS ORDERED: hydrALAZINE 20 MG/1 ML VIAL IV STA ×2 (17:10→18:34)
[2017-06-23] MEDS ORDERED: hydrALAZINE 20 MG/1 ML VIAL ONE ×2 (17:12→18:37)
[2017-06-23 17:25] LABS: Calcium 8.5 MG/DL (8.5-10.1); Osmolality,Calculated 315.5 MOS/KG (273-304); Potassium 5.5 MMOL/L (3.5-5.1)
[2017-06-23] MEDS ORDERED: methylPREDNISolone SOD SUC 125 MG/2 ML VIAL ONE (17:29)
[2017-06-23] MEDS ORDERED: diphenhydrAMINE 50 MG/1 ML VIAL ONE (17:29)
[2017-06-23] MEDS ORDERED: CIPROFLOXACIN 500 MG TABLET PO STA (17:57)
[2017-06-23] MEDS ORDERED: CIPROFLOXACIN 500 MG TABLET ONE (18:39)
[2017-06-23] MEDS ORDERED: LABETALOL 20 MG/4 ML SYRINGE IV ONE (19:21)
[2017-06-23] MEDS ORDERED: LABETALOL 20 MG/4 ML SYRINGE IV STA (19:32)
[2017-06-23] MEDS ORDERED: ACETAMINOPHEN 325 MG TABLET PO PRN (23:51)
[2017-06-23] MEDS ORDERED: ONDANSETRON 4 MG/2 ML VIAL IV PRN (23:51)
[2017-06-24] MEDS: cloNIDine 0.1 MG TABLET PO SCH ×2 (01:03→21:15)
[2017-06-24] MEDS: amLODIPine 10 MG TABLET PO SCH ×2 (01:03→10:08)
[2017-06-24] MEDS: CARVEDILOL 25 MG TABLET PO SCH ×3 (01:04→21:16)
[2017-06-24] MEDS: OSELTAMIVIR 75 MG CAPSULE PO SCH ×3 (01:04→21:16)
[2017-06-24] MEDS ORDERED: ZALEPLON 5 MG CAPSULE PO PRN (01:13)
[2017-06-24] MEDS: BENZONATATE 100 MG CAPSULE PO SCH ×3 (10:07→21:15)
[2017-06-24] MEDS: DOCUSATE SODIUM 100 MG CAPSULE PO SCH ×2 (10:07→21:16)
[2017-06-24] MEDS: PANTOPRAZOLE 40 MG TABLET PO SCH (10:08)
[2017-06-24] MEDS: CIPROFLOXACIN 500 MG TABLET PO SCH (13:58)
[2017-06-24] MEDS: hydrALAZINE 10 MG TABLET PO SCH ×2 (16:14→21:15)
[2017-06-24] MEDS ORDERED: CALCIUM CARBONATE CHEW 500 MG TABLET PO PRN (17:28)
[2017-06-24] MEDS ORDERED: NITROGLYCERIN SL 0.4 MG TABLET SL PRN (17:28)
[2017-06-24] MEDS: TICAGRELOR 90 MG TABLET PO SCH (21:16)
[2017-06-25] MEDS: CIPROFLOXACIN 500 MG TABLET PO SCH (06:41)
[2017-06-25 06:56] LABS: Calcium 7.8 MG/DL (8.5-10.1); Osmolality,Calculated 320.4 MOS/KG (273-304)
[2017-06-25] MEDS: CALCIUM ACETATE 667 MG CAPSULE PO SCH ×3 (08:24→17:44)
[2017-06-25] MEDS: DOCUSATE SODIUM 100 MG CAPSULE PO SCH ×2 (08:24→20:34)
[2017-06-25] MEDS: CINACALCET 30 MG TABLET PO SCH (08:24)
[2017-06-25] MEDS: amLODIPine 10 MG TABLET PO SCH (08:24)
[2017-06-25] MEDS: FOLIC ACID 1 MG TABLET PO SCH (08:24)
[2017-06-25] MEDS: MAGNESIUM GLUCONATE 500 MG TABLET PO SCH (08:24)
[2017-06-25] MEDS: CARVEDILOL 25 MG TABLET PO SCH ×2 (08:25→20:34)
[2017-06-25] MEDS: hydrALAZINE 10 MG TABLET PO SCH ×3 (08:25→20:34)
[2017-06-25] MEDS: ATORVASTATIN 20 MG TABLET PO SCH (08:25)
[2017-06-25] MEDS: OSELTAMIVIR 75 MG CAPSULE PO SCH ×2 (08:25→20:34)
[2017-06-25] MEDS: TICAGRELOR 90 MG TABLET PO SCH ×2 (08:25→20:34)
[2017-06-25] MEDS: PANTOPRAZOLE 40 MG TABLET PO SCH (08:25)
[2017-06-25] MEDS: BENZONATATE 100 MG CAPSULE PO SCH ×3 (08:25→20:34)
[2017-06-25] MEDS: cloNIDine 0.1 MG TABLET PO SCH (20:34)
[2017-06-26] MEDS: CIPROFLOXACIN 500 MG TABLET PO SCH ×3 (01:30→18:45)
[2017-06-26] MEDS: CARVEDILOL 25 MG TABLET PO SCH (09:41)
[2017-06-26] MEDS: DOCUSATE SODIUM 100 MG CAPSULE PO SCH ×2 (09:41→21:04)
[2017-06-26] MEDS: MAGNESIUM GLUCONATE 500 MG TABLET PO SCH (09:41)
[2017-06-26] MEDS: FOLIC ACID 1 MG TABLET PO SCH (09:42)
[2017-06-26] MEDS: TICAGRELOR 90 MG TABLET PO SCH ×2 (09:42→21:03)
[2017-06-26] MEDS: amLODIPine 10 MG TABLET PO SCH (09:42)
[2017-06-26] MEDS: BENZONATATE 100 MG CAPSULE PO SCH ×3 (09:42→21:03)
[2017-06-26] MEDS: OSELTAMIVIR 75 MG CAPSULE PO SCH ×2 (09:42→21:03)
[2017-06-26] MEDS: CINACALCET 30 MG TABLET PO SCH (09:42)
[2017-06-26] MEDS: CALCIUM ACETATE 667 MG CAPSULE PO SCH ×3 (09:42→17:21)
[2017-06-26] MEDS: hydrALAZINE 10 MG TABLET PO SCH (09:42)
[2017-06-26] MEDS: PANTOPRAZOLE 40 MG TABLET PO SCH (09:42)
[2017-06-26] MEDS: ATORVASTATIN 20 MG TABLET PO SCH (09:42)
[2017-06-26 12:28] LABS: Free T4 (Free Thyroxine) 0.83 NG/DL (0.76-1.46); Thyroid Stimulating Hormone 3.04 uIU/ml (0.358-3.74)
[2017-06-26] MEDS: ASPIRIN EC 81 MG TABLET PO SCH (12:41)
[2017-06-26] MEDS: hydrALAZINE 25 MG TABLET PO SCH ×2 (17:21→21:04)
[2017-06-26] MEDS: cloNIDine 0.1 MG TABLET PO SCH (21:03)
[2017-06-26] MEDS: CARVEDILOL 12.5 MG TABLET PO SCH (21:03)
[2017-06-27 05:52] LABS: Basophils % 0.2 % (0.0-0.8); Eosinophils # 0.1 10*3/uL (0.0-0.87); Eosinophils % 0.9 % (0.00-10.9); Hematocrit 31.7 VOL% (42.0-52.0); Hemoglobin 9.6 GM/DL (14.0-18.0); Immature Granulocytes % 1.1 %; Immature Granulocytes Absolute 0.13 #; Lymphocytes % 16.5 % (21.2-54.2); Mean Corpuscular HGB Conc 30.3 GM/DL (32-36); Mean Corpuscular Hemoglobin 26 PG (27-34); Mean Corpuscular Volume 86.8 FL (87-102); Mean Platelet Volume 10.7 FL (9.6-12.0); Monocytes # 1.4 10*3/uL (0.11-0.8); Monocytes % 11.6 % (1.7-12.7); Neutrophils # 8.5 10*3/uL (1.4-7.4); Neutrophils % 69.7 % (38.7-73.9); Platelet Count 141 T/CUMM (130-400); Red Blood Count 3.65 MC/CUMM (3.8-5.5); White Blood Count 12.2 T/CUMM (4-12)
[2017-06-27 06:17] LABS: Calcium 7.7 MG/DL (8.5-10.1); Osmolality,Calculated 308.5 MOS/KG (273-304); Potassium 4.4 MMOL/L (3.5-5.1)
[2017-06-27 06:23] LABS: Alanine Aminotransferase 13 U/L (16-61); Albumin 2.2 G/DL (3.4-5.0); Alkaline Phosphatase 91 U/L (45-117); Aspartate Amino Transferase 28 U/L (0-37); Bilirubin,Direct < 0.100 MG/DL (0.0-0.20); Bilirubin,Indirect 0.6 MG/DL (0.0-1.0); Total Protein 5.6 G/DL (6.4-8.3)
[2017-06-27 06:42] LABS: Risk Ratio 3.84; VLDL CHOLESTEROL 40.6 MG/DL
[2017-06-27] MEDS: CINACALCET 30 MG TABLET PO SCH (09:10)
[2017-06-27] MEDS: CARVEDILOL 12.5 MG TABLET PO SCH ×2 (09:10→16:50)
[2017-06-27] MEDS: ASPIRIN EC 81 MG TABLET PO SCH (09:10)
[2017-06-27] MEDS: FOLIC ACID 1 MG TABLET PO SCH (09:10)
[2017-06-27] MEDS: hydrALAZINE 25 MG TABLET PO SCH (09:10)
[2017-06-27] MEDS: ATORVASTATIN 20 MG TABLET PO SCH (09:11)
[2017-06-27] MEDS: DOCUSATE SODIUM 100 MG CAPSULE PO SCH ×2 (09:11→21:27)
[2017-06-27] MEDS: TICAGRELOR 90 MG TABLET PO SCH ×2 (09:11→21:27)
[2017-06-27] MEDS: amLODIPine 10 MG TABLET PO SCH (09:11)
[2017-06-27] MEDS: OSELTAMIVIR 75 MG CAPSULE PO SCH ×2 (09:11→21:27)
[2017-06-27] MEDS: CALCIUM ACETATE 667 MG CAPSULE PO SCH ×3 (09:11→16:50)
[2017-06-27] MEDS: MAGNESIUM GLUCONATE 500 MG TABLET PO SCH (09:11)
[2017-06-27] MEDS: PANTOPRAZOLE 40 MG TABLET PO SCH (09:11)
[2017-06-27] MEDS: BENZONATATE 100 MG CAPSULE PO SCH ×3 (09:26→21:27)
[2017-06-27] MEDS: CIPROFLOXACIN 500 MG TABLET PO SCH (12:40)
[2017-06-27] MEDS ORDERED: ATORVASTATIN 40 MG TABLET PO SCH (13:41)
[2017-06-27] MEDS: cloNIDine 0.1 MG TABLET PO SCH (21:27)
[2017-06-28 04:38] LABS: Basophils % 0.1 % (0.0-0.8); Eosinophils # 0.2 10*3/uL (0.0-0.87); Eosinophils % 1.5 % (0.00-10.9); Hematocrit 32.4 VOL% (42.0-52.0); Hemoglobin 10.2 GM/DL (14.0-18.0); Immature Granulocytes % 0.7 %; Immature Granulocytes Absolute 0.09 #; Lymphocytes # 1.8 10*3/uL (1.4-4.0); Lymphocytes % 14.6 % (21.2-54.2); Mean Corpuscular HGB Conc 31.5 GM/DL (32-36); Mean Corpuscular Hemoglobin 27 PG (27-34); Mean Corpuscular Volume 84.2 FL (87-102); Mean Platelet Volume 10.7 FL (9.6-12.0); Monocytes # 1.3 10*3/uL (0.11-0.8); Neutrophils # 8.7 10*3/uL (1.4-7.4); Neutrophils % 72.1 % (38.7-73.9); Platelet Count 139 T/CUMM (130-400); Red Blood Count 3.85 MC/CUMM (3.8-5.5); Red Cell Distribution Width 19.1 % (9.3-17.3); White Blood Count 12.1 T/CUMM (4-12)
[2017-06-28 05:09] LABS: Calcium 7.6 MG/DL (8.5-10.1); Magnesium 1.8 MG/DL (1.8-2.4); Osmolality,Calculated 306.7 MOS/KG (273-304); Potassium 4.5 MMOL/L (3.5-5.1)
[2017-06-28] MEDS: CIPROFLOXACIN 500 MG TABLET PO SCH (06:11)
[2017-06-28] MEDS: ASPIRIN EC 81 MG TABLET PO SCH (09:08)
[2017-06-28] MEDS: MAGNESIUM GLUCONATE 500 MG TABLET PO SCH (09:08)
[2017-06-28] MEDS: CINACALCET 30 MG TABLET PO SCH (09:08)
[2017-06-28] MEDS: CALCIUM ACETATE 667 MG CAPSULE PO SCH ×3 (09:08→17:21)
[2017-06-28] MEDS: DOCUSATE SODIUM 100 MG CAPSULE PO SCH (09:09)
[2017-06-28] MEDS: TICAGRELOR 90 MG TABLET PO SCH (09:09)
[2017-06-28] MEDS: PANTOPRAZOLE 40 MG TABLET PO SCH (09:09)
[2017-06-28] MEDS: CARVEDILOL 12.5 MG TABLET PO SCH ×2 (09:09→17:21)
[2017-06-28] MEDS: BENZONATATE 100 MG CAPSULE PO SCH ×2 (09:09→15:55)
[2017-06-28] MEDS: OSELTAMIVIR 75 MG CAPSULE PO SCH (09:09)
[2017-06-28] MEDS: amLODIPine 10 MG TABLET PO SCH (09:09)
[2017-06-28] MEDS: FOLIC ACID 1 MG TABLET PO SCH (09:09)
[2017-06-28 16:01] VITALS: BP 127/77
== END 2017-06-28 17:30 | disposition home or self-care (01) | DRG 152 ==
LOC: N.ED 12:14 → N.EDINP 21:27 → N.TELEN 23:41
PROVIDERS: ADMIT Internal Medicine; ATTEND Internal Medicine

== ENCOUNTER 2018-05-09 20:50 | Inpatient (IN) ==
[2018-05-09 21:55] LABS: Basophils % 0.3 % (0.0-0.8); Eosinophils # 0.2 10*3/uL (0.0-0.87); Hematocrit 22.2 VOL% (42.0-52.0); Hemoglobin 7.3 GM/DL (14.0-18.0); Immature Granulocytes Absolute 0.07 #; Lymphocytes # 1.4 10*3/uL (1.4-4.0); Lymphocytes % 19.4 % (21.2-54.2); Mean Corpuscular HGB Conc 32.9 GM/DL (32-36); Mean Corpuscular Hemoglobin 30 PG (27-34); Mean Corpuscular Volume 91.7 FL (87-102); Mean Platelet Volume 9.3 FL (9.6-12.0); NRBC # 0.02 10*3/uL; Neutrophils # 4.7 10*3/uL (1.4-7.4); Neutrophils % 64.3 % (38.7-73.9); Platelet Count 157 T/CUMM (130-400); Red Blood Count 2.42 MC/CUMM (3.8-5.5); Red Cell Distribution Width 16.1 % (9.3-17.3); White Blood Count 7.3 T/CUMM (4-12)
[2018-05-09 22:02] LABS: INR 1.1; PT Patient Result 11.2 SECS; Partial Thromboplastin Time 29.7 SECS (0-40)
[2018-05-09 22:32] LABS: Troponin I 0.096 NG/ML (0.00-0.045)
[2018-05-09 22:35] LABS: Calcium 8.3 MG/DL (8.5-10.1)
[2018-05-09 22:36] LABS: Albumin 2.3 G/DL (3.4-5.0); Total Protein 6.9 G/DL (6.4-8.3)
[2018-05-09 22:37] LABS: Osmolality,Calculated 297.7 MOS/KG (273-304); Potassium 4.3 MMOL/L (3.5-5.1)
[2018-05-09 22:50] LABS: Bilirubin,Total 0.4 MG/DL (0.2-1.0)
[2018-05-10] MEDS ORDERED: hydrALAZINE 20 MG/1 ML VIAL IV STA (00:42)
[2018-05-10] MEDS ORDERED: MORPHINE 4 MG/1 ML VIAL IV PRN (01:49)
[2018-05-10] MEDS ORDERED: ONDANSETRON 4 MG/2 ML VIAL IV PRN (01:49)
[2018-05-10] MEDS ORDERED: SODIUM CHLORIDE 0.9% 1,000 ML IV PRN ×2 (01:55→05:02)
[2018-05-10] MEDS ORDERED: NITROGLYCERIN SL 0.4 MG TABLET SL PRN (01:56)
[2018-05-10 04:59] LABS: Basophils % 0.3 % (0.0-0.8); Eosinophils # 0.2 10*3/uL (0.0-0.87); Eosinophils % 2.1 % (0.00-10.9); Hematocrit 22.3 VOL% (42.0-52.0); Hemoglobin 7.1 GM/DL (14.0-18.0); Immature Granulocytes % 1.4 %; Lymphocytes # 1.5 10*3/uL (1.4-4.0); Lymphocytes % 21.4 % (21.2-54.2); Mean Corpuscular HGB Conc 31.8 GM/DL (32-36); Mean Corpuscular Hemoglobin 30 PG (27-34); Mean Corpuscular Volume 92.9 FL (87-102); Mean Platelet Volume 9.6 FL (9.6-12.0); Monocytes # 0.9 10*3/uL (0.11-0.8); Monocytes % 12.9 % (1.7-12.7); Neutrophils # 4.4 10*3/uL (1.4-7.4); Neutrophils % 61.9 % (38.7-73.9); Platelet Count 183 T/CUMM (130-400); Red Cell Distribution Width 16.2 % (9.3-17.3); White Blood Count 7.1 T/CUMM (4-12)
[2018-05-10 05:25] LABS: Calcium 8.3 MG/DL (8.5-10.1); Osmolality,Calculated 297.7 MOS/KG (273-304); Potassium 4.5 MMOL/L (3.5-5.1)
[2018-05-10] MEDS: CARVEDILOL 25 MG TABLET PO SCH ×2 (07:47→17:31)
[2018-05-10] MEDS: amLODIPine 10 MG TABLET PO SCH (08:01)
[2018-05-10] MEDS: ASPIRIN EC 81 MG TABLET PO SCH (08:01)
[2018-05-10] MEDS: ATORVASTATIN 20 MG TABLET PO SCH (08:01)
[2018-05-10] MEDS: FOLIC ACID 1 MG TABLET PO SCH (08:02)
[2018-05-10] MEDS: TICAGRELOR 90 MG TABLET PO SCH ×2 (08:45→20:37)
[2018-05-10] MEDS ORDERED: PANTOPRAZOLE 40 MG VIAL IV SCH (09:00)
[2018-05-10] MEDS ORDERED: [UNRECOGNIZED DRUG - OTHER] IJ SCH (12:09)
[2018-05-10] MEDS: PANTOPRAZOLE 40 MG TABLET PO SCH (20:28)
[2018-05-10] MEDS ORDERED: CINACALCET 30 MG TABLET PO SCH (21:00)
[2018-05-11 05:15] LABS: Basophils % 0.3 % (0.0-0.8); Eosinophils # 0.2 10*3/uL (0.0-0.87); Eosinophils % 3.1 % (0.00-10.9); Hematocrit 23.2 VOL% (42.0-52.0); Hemoglobin 7.6 GM/DL (14.0-18.0); Immature Granulocytes % 0.7 %; Immature Granulocytes Absolute 0.05 #; Lymphocytes # 1.3 10*3/uL (1.4-4.0); Lymphocytes % 19.4 % (21.2-54.2); Mean Corpuscular HGB Conc 32.8 GM/DL (32-36); Mean Corpuscular Hemoglobin 30 PG (27-34); Mean Corpuscular Volume 90.6 FL (87-102); Mean Platelet Volume 9.2 FL (9.6-12.0); Monocytes # 0.9 10*3/uL (0.11-0.8); Monocytes % 13.1 % (1.7-12.7); Neutrophils # 4.3 10*3/uL (1.4-7.4); Neutrophils % 63.4 % (38.7-73.9); Platelet Count 169 T/CUMM (130-400); Red Blood Count 2.56 MC/CUMM (3.8-5.5); Red Cell Distribution Width 15.7 % (9.3-17.3); White Blood Count 6.8 T/CUMM (4-12)
[2018-05-11 05:43] LABS: Calcium 8.2 MG/DL (8.5-10.1); Osmolality,Calculated 294.8 MOS/KG (273-304); Potassium 4.6 MMOL/L (3.5-5.1)
[2018-05-11 05:45] LABS: Calcium 8.1 MG/DL (8.5-10.1); Osmolality,Calculated 294.8 MOS/KG (273-304); Potassium 4.7 MMOL/L (3.5-5.1)
[2018-05-11] MEDS ORDERED: LIDOCAINE 100 MG/5 ML SYRINGE ONE (09:00)
[2018-05-11] MEDS ORDERED: PROPOFOL 200 MG/20 ML VIAL IV ONE (09:00)
[2018-05-11] MEDS ORDERED: [UNRECOGNIZED DRUG - OTHER] PO SCH (09:00)
[2018-05-11] MEDS ORDERED: MINOXIDIL 2.5 MG TABLET PO SCH (09:00)
[2018-05-11] MEDS: FOLIC ACID 1 MG TABLET PO SCH (13:24)
[2018-05-11] MEDS: amLODIPine 10 MG TABLET PO SCH (13:24)
[2018-05-11] MEDS: ATORVASTATIN 20 MG TABLET PO SCH (13:24)
[2018-05-11] MEDS: PANTOPRAZOLE 40 MG TABLET PO SCH (13:24)
[2018-05-11] MEDS: ASPIRIN EC 81 MG TABLET PO SCH (13:24)
[2018-05-11] MEDS: TICAGRELOR 90 MG TABLET PO SCH (13:24)
[2018-05-11] MEDS: CARVEDILOL 25 MG TABLET PO SCH (13:24)
[2018-05-11 15:12] VITALS: BP 159/97
== END 2018-05-11 15:48 | disposition home or self-care (01) | DRG 391 ==
LOC: N.ED 20:50 → SUATTDRO 05-10 01:49 → N.EDINP 05-10 01:49 → N.CC 05-10 02:27 → N.5E 05-10 14:23
PROVIDERS: ADMIT Internal Medicine Geriatric Medicine; ATTEND Internal Medicine

== ENCOUNTER 2018-10-27 08:41 | Inpatient (IN) ==
[2018-10-27] MEDS ORDERED: ONDANSETRON 4 MG/2 ML VIAL IV STA (09:01)
[2018-10-27] MEDS ORDERED: HYDROmorphone 2 MG/1 ML VIAL IV STA (09:01)
[2018-10-27] MEDS ORDERED: hydrALAZINE 20 MG/1 ML VIAL ONE (09:10)
[2018-10-27] MEDS ORDERED: hydrALAZINE 20 MG/1 ML VIAL IV STA ×2 (09:20→10:23)
[2018-10-27 09:39] LABS: Basophils # 0.1 10*3/uL (0.0-0.2); Basophils % 0.3 % (0.0-0.8); Eosinophils # 0.1 10*3/uL (0.0-0.87); Eosinophils % 0.7 % (0.00-10.9); Hematocrit 28.8 VOL% (42.0-52.0); Immature Granulocytes % 0.8 %; Immature Granulocytes Absolute 0.13 #; Lymphocytes # 2.2 10*3/uL (1.4-4.0); Lymphocytes % 12.9 % (21.2-54.2); Mean Corpuscular HGB Conc 31.3 GM/DL (32-36); Mean Corpuscular Volume 89.2 FL (87-102); Mean Platelet Volume 9.3 FL (9.6-12.0); Monocytes % 6.1 % (1.7-12.7); Neutrophils % 79.2 % (38.7-73.9); Platelet Count 359 T/CUMM (130-400); Red Blood Count 3.23 MC/CUMM (3.8-5.5); Red Cell Distribution Width 17.4 % (9.3-17.3); White Blood Count 17.1 T/CUMM (4-12)
[2018-10-27 09:48] LABS: Calcium 10.9 MG/DL (8.5-10.1); Osmolality,Calculated 292.5 MOS/KG (273-304)
[2018-10-27] MEDS ORDERED: GENTAMICIN 80 MG/2 ML VIAL INTRAPERIT STA (09:56)
[2018-10-27] MEDS ORDERED: VANCOMYCIN 1,000 MG VIAL INTRAPERIT STA (09:56)
[2018-10-27] MEDS ORDERED: HEPARIN 1,000 UNIT/1 ML VIAL IV STA (10:21)
[2018-10-27] MEDS ORDERED: VANCOMYCIN 1,000 MG VIAL INTRAPERIT ONE (10:23)
[2018-10-27] MEDS ORDERED: ACETAMINOPHEN 325 MG TABLET PO PRN (10:24)
[2018-10-27] MEDS ORDERED: NITROGLYCERIN SL 0.4 MG TABLET SL PRN (10:28)
[2018-10-27] MEDS ORDERED: SODIUM CHLORIDE 0.45% 1,000 ML IV SCH (10:30)
[2018-10-27 10:34] LABS: Neutrophils,Peritoneal Fluid 78 %; RBC,Peritoneal Fluid 56 T/CUMM
[2018-10-27] MEDS ORDERED: cloNIDine 0.1 MG TABLET ONE (10:49)
[2018-10-27] MEDS ORDERED: LABETALOL 20 MG/4 ML SYRINGE IV STA (11:06)
[2018-10-27] MEDS: HYDROmorphone 2 MG/1 ML VIAL IV PRN (15:13)
[2018-10-27] MEDS: ONDANSETRON 4 MG/2 ML VIAL IV PRN (15:13)
[2018-10-27] MEDS: CARVEDILOL 12.5 MG TABLET PO SCH (19:13)
[2018-10-27] MEDS: HEPARIN 10,000 UNIT/10 ML VIAL INTRAPERIT SCH (20:56)
[2018-10-27] MEDS: CINACALCET 30 MG TABLET PO SCH (20:56)
[2018-10-27] MEDS: TICAGRELOR 90 MG TABLET PO SCH (20:57)
[2018-10-28] MEDS: ONDANSETRON 4 MG/2 ML VIAL IV PRN ×2 (00:09→13:48)
[2018-10-28] MEDS: HYDROmorphone 2 MG/1 ML VIAL IV PRN ×2 (00:28→13:44)
[2018-10-28 05:54] LABS: Basophils % 0.1 % (0.0-0.8); Eosinophils % 0.1 % (0.00-10.9); Hematocrit 22.2 VOL% (42.0-52.0); Hemoglobin 6.9 GM/DL (14.0-18.0); Immature Granulocytes % 0.8 %; Immature Granulocytes Absolute 0.18 #; Lymphocytes # 2.1 10*3/uL (1.4-4.0); Lymphocytes % 8.8 % (21.2-54.2); Mean Corpuscular HGB Conc 31.1 GM/DL (32-36); Mean Corpuscular Volume 89.2 FL (87-102); Mean Platelet Volume 9.6 FL (9.6-12.0); Monocytes % 6.6 % (1.7-12.7); Neutrophils % 83.6 % (38.7-73.9); Platelet Count 301 T/CUMM (130-400); Red Blood Count 2.49 MC/CUMM (3.8-5.5); Red Cell Distribution Width 17.7 % (9.3-17.3); White Blood Count 23.8 T/CUMM (4-12)
[2018-10-28] MEDS: HEPARIN 10,000 UNIT/10 ML VIAL INTRAPERIT SCH (06:04)
[2018-10-28 06:05] LABS: Calcium 9.4 MG/DL (8.5-10.1); Osmolality,Calculated 298.1 MOS/KG (273-304)
[2018-10-28 06:15] LABS: Hypochromasia 2+
[2018-10-28 06:16] LABS: Microcytosis 1+; Platelet Estimate Normal
[2018-10-28 08:03] LABS: Basophils # 0.1 10*3/uL (0.0-0.2); Basophils % 0.2 % (0.0-0.8); Eosinophils # 0.1 10*3/uL (0.0-0.87); Eosinophils % 0.2 % (0.00-10.9); Hematocrit 23.9 VOL% (42.0-52.0); Hemoglobin 7.5 GM/DL (14.0-18.0); Immature Granulocytes % 0.7 %; Immature Granulocytes Absolute 0.17 #; Lymphocytes % 8.4 % (21.2-54.2); Mean Corpuscular HGB Conc 31.4 GM/DL (32-36); Mean Corpuscular Volume 89.5 FL (87-102); Mean Platelet Volume 9.6 FL (9.6-12.0); Monocytes % 6.3 % (1.7-12.7); Neutrophils % 84.2 % (38.7-73.9); Platelet Count 329 T/CUMM (130-400); Red Blood Count 2.67 MC/CUMM (3.8-5.5); Red Cell Distribution Width 17.7 % (9.3-17.3); White Blood Count 24.3 T/CUMM (4-12)
[2018-10-28 08:14] LABS: Hypochromasia 1+; Lymphocytes 11 % (20-55); Microcytosis 1+; Segmented Neutrophils 79 % (50-85); Total Cells Counted 100
[2018-10-28 08:15] LABS: Anisocytosis 1+; Ovalocytes Slight; Platelet Estimate Normal; Target Cells Slight
[2018-10-28] MEDS: FOLIC ACID 1 MG TABLET PO SCH (08:29)
[2018-10-28] MEDS: CALCITRIOL 0.5 MCG CAPSULE PO SCH (08:29)
[2018-10-28] MEDS: TICAGRELOR 90 MG TABLET PO SCH ×2 (08:29→20:22)
[2018-10-28] MEDS: MULTIVITAMIN (BEROCCA) TABLET PO SCH (08:29)
[2018-10-28] MEDS: CARVEDILOL 12.5 MG TABLET PO SCH ×2 (08:30→17:01)
[2018-10-28] MEDS: ASPIRIN EC 81 MG TABLET PO SCH (08:30)
[2018-10-28] MEDS: PANTOPRAZOLE 40 MG TABLET PO SCH (08:30)
[2018-10-28] MEDS: ATORVASTATIN 20 MG TABLET PO SCH (08:30)
[2018-10-28] MEDS: amLODIPine 10 MG TABLET PO SCH (08:30)
[2018-10-28] MEDS: [UNRECOGNIZED DRUG - OTHER] IJ SCH ×2 (08:36→10:58)
[2018-10-28] MEDS ORDERED: PANTOPRAZOLE 40 MG TABLET PO SCH (09:00)
[2018-10-28] MEDS: CINACALCET 30 MG TABLET PO SCH (20:21)
[2018-10-29] MEDS ORDERED: GENTAMICIN 80 MG/2 ML VIAL INTRAPERIT SCH
[2018-10-29] MEDS: ATORVASTATIN 20 MG TABLET PO SCH (08:44)
[2018-10-29] MEDS: amLODIPine 10 MG TABLET PO SCH (08:44)
[2018-10-29] MEDS: PANTOPRAZOLE 40 MG TABLET PO SCH (08:44)
[2018-10-29] MEDS: CALCITRIOL 0.5 MCG CAPSULE PO SCH (08:44)
[2018-10-29] MEDS: MULTIVITAMIN (BEROCCA) TABLET PO SCH (08:44)
[2018-10-29] MEDS: TICAGRELOR 90 MG TABLET PO SCH ×2 (08:44→20:16)
[2018-10-29] MEDS: ASPIRIN EC 81 MG TABLET PO SCH (08:44)
[2018-10-29] MEDS: CARVEDILOL 12.5 MG TABLET PO SCH ×2 (08:44→17:00)
[2018-10-29] MEDS: FOLIC ACID 1 MG TABLET PO SCH (08:45)
[2018-10-29] MEDS: [UNRECOGNIZED DRUG - OTHER] IJ SCH (10:33)
[2018-10-29] MEDS: CINACALCET 30 MG TABLET PO SCH (20:16)
[2018-10-30 04:18] LABS: Basophils % 0.2 % (0.0-0.8); Eosinophils # 0.2 10*3/uL (0.0-0.87); Eosinophils % 1.8 % (0.00-10.9); Hematocrit 22.2 VOL% (42.0-52.0); Hemoglobin 6.9 GM/DL (14.0-18.0); Immature Granulocytes Absolute 0.11 #; Lymphocytes # 1.6 10*3/uL (1.4-4.0); Lymphocytes % 14.5 % (21.2-54.2); Mean Corpuscular HGB Conc 31.1 GM/DL (32-36); Mean Corpuscular Volume 88.4 FL (87-102); Mean Platelet Volume 9.3 FL (9.6-12.0); Monocytes % 9.2 % (1.7-12.7); Neutrophils % 73.3 % (38.7-73.9); Platelet Count 292 T/CUMM (130-400); Red Blood Count 2.51 MC/CUMM (3.8-5.5); Red Cell Distribution Width 17.1 % (9.3-17.3); White Blood Count 11.2 T/CUMM (4-12)
[2018-10-30 04:57] LABS: Albumin 1.6 G/DL (3.4-5.0); Bilirubin,Total 0.6 MG/DL (0.2-1.0); Calcium 9.7 MG/DL (8.5-10.1); Osmolality,Calculated 290.8 MOS/KG (273-304); Total Protein 6.5 G/DL (6.4-8.3)
[2018-10-30 08:02] VITALS: BP 164/83
[2018-10-30] MEDS: TICAGRELOR 90 MG TABLET PO SCH (09:04)
[2018-10-30] MEDS: ASPIRIN EC 81 MG TABLET PO SCH (09:05)
[2018-10-30] MEDS: ATORVASTATIN 20 MG TABLET PO SCH (09:05)
[2018-10-30] MEDS: MULTIVITAMIN (BEROCCA) TABLET PO SCH (09:05)
[2018-10-30] MEDS: CALCITRIOL 0.5 MCG CAPSULE PO SCH (09:05)
[2018-10-30] MEDS: amLODIPine 10 MG TABLET PO SCH (09:05)
[2018-10-30] MEDS: PANTOPRAZOLE 40 MG TABLET PO SCH (09:05)
[2018-10-30] MEDS: CARVEDILOL 12.5 MG TABLET PO SCH (09:05)
[2018-10-30] MEDS: [UNRECOGNIZED DRUG - OTHER] IJ SCH (11:06)
[2018-10-30] MEDS: FOLIC ACID 1 MG TABLET PO SCH (11:33)
[2018-10-31] MEDS ORDERED: VANCOMYCIN 1,000 MG VIAL INTRAPERIT SCH
== END 2018-10-30 11:45 | disposition home or self-care (01) | DRG 919 ==
LOC: N.ED 08:41 → N.EDINP 10:24 → N.5E 11:19
PROVIDERS: ADMIT Internal Medicine; ATTEND Internal Medicine

== ENCOUNTER 2018-12-27 10:19 | Inpatient (IN) ==
[2018-12-27] MEDS ORDERED: VANCOMYCIN INJ 1,000 MG in SODIUM CHLORIDE 0.9% 250 ML IV STA (10:57)
[2018-12-27] MEDS ORDERED: ONDANSETRON 4 MG/2 ML VIAL IV PRN (11:07)
[2018-12-27] MEDS ORDERED: ACETAMINOPHEN 325 MG TABLET PO PRN (11:07)
[2018-12-27 11:19] LABS: Basophils # 0.1 10*3/uL (0.0-0.2); Basophils % 0.4 % (0.0-0.8); Eosinophils # 0.3 10*3/uL (0.0-0.87); Eosinophils % 2.8 % (0.00-10.9); Hematocrit 23.1 VOL% (42.0-52.0); Hemoglobin 6.9 GM/DL (14.0-18.0); Immature Granulocytes % 0.8 %; Immature Granulocytes Absolute 0.09 #; Lymphocytes # 1.7 10*3/uL (1.4-4.0); Lymphocytes % 14.7 % (21.2-54.2); Mean Corpuscular HGB Conc 29.9 GM/DL (32-36); Mean Corpuscular Volume 93.5 FL (87-102); Mean Platelet Volume 9.2 FL (9.6-12.0); Monocytes % 9.1 % (1.7-12.7); Neutrophils % 72.2 % (38.7-73.9); Platelet Count 241 T/CUMM (130-400); Red Blood Count 2.47 MC/CUMM (3.8-5.5); Red Cell Distribution Width 16.2 % (9.3-17.3); White Blood Count 11.2 T/CUMM (4-12)
[2018-12-27 11:42] LABS: Bilirubin,Total 1.7 MG/DL (0.2-1.0); Calcium 9.3 MG/DL (8.5-10.1); Osmolality,Calculated 303.1 MOS/KG (273-304); Total Protein 7.9 G/DL (6.4-8.3)
[2018-12-27] MEDS: SODIUM CHLORIDE 0.9% 1,000 ML IV SCH (11:56)
[2018-12-27] MEDS: ENOXAPARIN 30 MG/0.3 ML SYRINGE SUBCUT SCH (15:23)
[2018-12-27] MEDS ORDERED: CHLORHEXIDINE 4% SOLN 118 ML BOTTLE TOP ONE (16:52)
[2018-12-27] MEDS: HYDROmorphone 2 MG/1 ML VIAL IV PRN ×2 (17:34→22:51)
[2018-12-27] MEDS ORDERED: NITROGLYCERIN SL 0.4 MG TABLET SL PRN (21:44)
[2018-12-27] MEDS ORDERED: SODIUM CHLORIDE 0.9% 1,000 ML IV PRN (21:48)
[2018-12-27] MEDS: CLINDAMYCIN INJ 300 MG in PREMIX 1 EACH IV SCH (22:37)
[2018-12-27] MEDS: GENTAMICIN 0.1% OINT 15 GM TUBE TOP SCH (22:37)
[2018-12-27] MEDS: GABAPENTIN 300 MG CAPSULE PO SCH (22:38)
[2018-12-27] MEDS: DOCUSATE SODIUM 100 MG CAPSULE PO SCH (22:38)
[2018-12-27] MEDS: CINACALCET 30 MG TABLET PO SCH (22:39)
[2018-12-27] MEDS: ACETIC ACID 0.25% IRRIGATION 1,000 ML BOTTLE IRRIG SCH (23:00)
[2018-12-28] MEDS: CLINDAMYCIN INJ 300 MG in PREMIX 1 EACH IV SCH ×4 (04:35→21:50)
[2018-12-28 06:27] LABS: Basophils % 0.3 % (0.0-0.8); Eosinophils # 0.3 10*3/uL (0.0-0.87); Eosinophils % 2.5 % (0.00-10.9); Hematocrit 23.1 VOL% (42.0-52.0); Immature Granulocytes Absolute 0.11 #; Lymphocytes # 1.6 10*3/uL (1.4-4.0); Lymphocytes % 14.6 % (21.2-54.2); Mean Corpuscular HGB Conc 30.3 GM/DL (32-36); Mean Corpuscular Volume 93.9 FL (87-102); Monocytes % 11.3 % (1.7-12.7); Neutrophils % 70.3 % (38.7-73.9); Platelet Count 189 T/CUMM (130-400); Red Blood Count 2.46 MC/CUMM (3.8-5.5); Red Cell Distribution Width 16.2 % (9.3-17.3); White Blood Count 10.8 T/CUMM (4-12)
[2018-12-28 06:47] LABS: Albumin 1.5 G/DL (3.4-5.0); Bilirubin,Total 1.2 MG/DL (0.2-1.0); Calcium 8.5 MG/DL (8.5-10.1); Osmolality,Calculated 300.1 MOS/KG (273-304); Total Protein 6.4 G/DL (6.4-8.3)
[2018-12-28] MEDS ORDERED: CARVEDILOL 12.5 MG TABLET PO SCH (08:00)
[2018-12-28 08:30] LABS: Hematocrit 23.2 VOL% (42.0-52.0); Hemoglobin 6.9 GM/DL (14.0-18.0)
[2018-12-28] MEDS ORDERED: VIT B C IRON FUM FA D3 ZINC OX PO SCH (09:00)
[2018-12-28] MEDS ORDERED: amLODIPine 10 MG TABLET PO SCH (09:00)
[2018-12-28] MEDS: HYDROmorphone 2 MG/1 ML VIAL IV PRN (09:58)
[2018-12-28] MEDS: MAGNESIUM GLUCONATE 500 MG TABLET PO SCH (09:59)
[2018-12-28] MEDS: ASPIRIN EC 81 MG TABLET PO SCH (10:01)
[2018-12-28] MEDS: CALCIUM ACETATE 667 MG CAPSULE PO SCH ×6 (10:01→17:23)
[2018-12-28] MEDS: FOLIC ACID 1 MG TABLET PO SCH (10:02)
[2018-12-28] MEDS: ATORVASTATIN 20 MG TABLET PO SCH (10:03)
[2018-12-28] MEDS: PANTOPRAZOLE 40 MG TABLET PO SCH (10:03)
[2018-12-28] MEDS: DOCUSATE SODIUM 100 MG CAPSULE PO SCH ×2 (10:03→21:48)
[2018-12-28] MEDS: GENTAMICIN 0.1% OINT 15 GM TUBE TOP SCH ×3 (10:08→21:49)
[2018-12-28] MEDS ORDERED: HEPARIN 1,000 UNIT/1 ML VIAL INTRAPERIT SCH (14:00)
[2018-12-28] MEDS ORDERED: HEPARIN 10,000 UNIT/10 ML VIAL INTRAPERIT SCH ×2 (14:00)
[2018-12-28] MEDS: ENOXAPARIN 30 MG/0.3 ML SYRINGE SUBCUT SCH (14:14)
[2018-12-28] MEDS: ACETIC ACID 0.25% IRRIGATION 1,000 ML BOTTLE IRRIG SCH ×2 (14:17→21:51)
[2018-12-28] MEDS: CARVEDILOL 25 MG TABLET PO SCH (16:14)
[2018-12-28] MEDS: methylPREDNISolone SOD SUC 40 MG/1 ML VIAL IV SCH (16:15)
[2018-12-28] MEDS: GABAPENTIN 300 MG CAPSULE PO SCH (21:49)
[2018-12-28] MEDS: CINACALCET 30 MG TABLET PO SCH (21:49)
[2018-12-29] MEDS ORDERED: LABETALOL 20 MG/4 ML SYRINGE IV ONE (00:49)
[2018-12-29] MEDS: methylPREDNISolone SOD SUC 40 MG/1 ML VIAL IV SCH ×2 (03:28→14:42)
[2018-12-29] MEDS: CLINDAMYCIN INJ 300 MG in PREMIX 1 EACH IV SCH ×4 (03:29→22:13)
[2018-12-29] MEDS: SODIUM CHLORIDE 0.9% 1,000 ML IV SCH ×2 (03:44→18:04)
[2018-12-29] MEDS: hydrALAZINE 20 MG/1 ML VIAL IV PRN (04:49)
[2018-12-29 05:25] LABS: Albumin 1.6 G/DL (3.4-5.0); Bilirubin,Total 1.3 MG/DL (0.2-1.0); Calcium 9.1 MG/DL (8.5-10.1); Osmolality,Calculated 298.4 MOS/KG (273-304); Total Protein 7.2 G/DL (6.4-8.3)
[2018-12-29 05:33] LABS: Basophils % 0.2 % (0.0-0.8); Hematocrit 26.8 VOL% (42.0-52.0); Hemoglobin 8.5 GM/DL (14.0-18.0); Immature Granulocytes % 1.4 %; Immature Granulocytes Absolute 0.18 #; Lymphocytes # 1.7 10*3/uL (1.4-4.0); Lymphocytes % 13.1 % (21.2-54.2); Mean Corpuscular HGB Conc 31.7 GM/DL (32-36); Mean Platelet Volume 9.4 FL (9.6-12.0); Monocytes % 3.9 % (1.7-12.7); Neutrophils % 81.4 % (38.7-73.9); Platelet Count 237 T/CUMM (130-400); Red Blood Count 3.01 MC/CUMM (3.8-5.5); Red Cell Distribution Width 17.9 % (9.3-17.3); White Blood Count 12.9 T/CUMM (4-12)
[2018-12-29] MEDS: MAGNESIUM GLUCONATE 500 MG TABLET PO SCH (09:40)
[2018-12-29] MEDS: CALCIUM ACETATE 667 MG CAPSULE PO SCH ×3 (09:40→17:15)
[2018-12-29] MEDS: CARVEDILOL 25 MG TABLET PO SCH ×2 (09:41→17:16)
[2018-12-29] MEDS: PANTOPRAZOLE 40 MG TABLET PO SCH (09:41)
[2018-12-29] MEDS: ASPIRIN EC 81 MG TABLET PO SCH (09:41)
[2018-12-29] MEDS: ATORVASTATIN 20 MG TABLET PO SCH (09:41)
[2018-12-29] MEDS: DOCUSATE SODIUM 100 MG CAPSULE PO SCH ×2 (09:41→20:38)
[2018-12-29] MEDS: FOLIC ACID 1 MG TABLET PO SCH (09:41)
[2018-12-29] MEDS: GENTAMICIN 0.1% OINT 15 GM TUBE TOP SCH ×3 (09:42→20:37)
[2018-12-29] MEDS: ACETIC ACID 0.25% IRRIGATION 1,000 ML BOTTLE IRRIG SCH ×2 (12:35→20:37)
[2018-12-29] MEDS: ENOXAPARIN 30 MG/0.3 ML SYRINGE SUBCUT SCH (12:35)
[2018-12-29] MEDS: GABAPENTIN 300 MG CAPSULE PO SCH (20:38)
[2018-12-29] MEDS: CINACALCET 30 MG TABLET PO SCH (20:38)
[2018-12-30] MEDS: hydrALAZINE 20 MG/1 ML VIAL IV PRN (04:21)
[2018-12-30] MEDS: methylPREDNISolone SOD SUC 40 MG/1 ML VIAL IV SCH ×2 (04:21→15:19)
[2018-12-30] MEDS: CLINDAMYCIN INJ 300 MG in PREMIX 1 EACH IV SCH (04:21)
[2018-12-30 05:02] LABS: Basophils % 0.2 % (0.0-0.8); Eosinophils % 0.1 % (0.00-10.9); Hematocrit 24.8 VOL% (42.0-52.0); Hemoglobin 7.6 GM/DL (14.0-18.0); Immature Granulocytes % 2.3 %; Immature Granulocytes Absolute 0.31 #; Lymphocytes # 1.6 10*3/uL (1.4-4.0); Lymphocytes % 11.9 % (21.2-54.2); Mean Corpuscular HGB Conc 30.6 GM/DL (32-36); Mean Corpuscular Volume 90.2 FL (87-102); Mean Platelet Volume 9.6 FL (9.6-12.0); Monocytes % 7.3 % (1.7-12.7); Neutrophils % 78.2 % (38.7-73.9); Platelet Count 229 T/CUMM (130-400); Red Blood Count 2.75 MC/CUMM (3.8-5.5); White Blood Count 13.8 T/CUMM (4-12)
[2018-12-30 05:28] LABS: Albumin 1.6 G/DL (3.4-5.0); Bilirubin,Total 0.9 MG/DL (0.2-1.0); Calcium 9.3 MG/DL (8.5-10.1); Osmolality,Calculated 294.7 MOS/KG (273-304); Total Protein 6.8 G/DL (6.4-8.3)
[2018-12-30] MEDS ORDERED: LEVOFLOXACIN INJ 500 MG in PREMIX 1 EACH IV ONE (08:00)
[2018-12-30] MEDS: ASPIRIN EC 81 MG TABLET PO SCH (09:05)
[2018-12-30] MEDS: CALCIUM ACETATE 667 MG CAPSULE PO SCH ×3 (09:05→16:58)
[2018-12-30] MEDS: FOLIC ACID 1 MG TABLET PO SCH (09:05)
[2018-12-30] MEDS: PANTOPRAZOLE 40 MG TABLET PO SCH (09:06)
[2018-12-30] MEDS: ACETIC ACID 0.25% IRRIGATION 1,000 ML BOTTLE IRRIG SCH ×2 (09:06→21:37)
[2018-12-30] MEDS: CARVEDILOL 25 MG TABLET PO SCH ×2 (09:06→16:58)
[2018-12-30] MEDS: MAGNESIUM GLUCONATE 500 MG TABLET PO SCH (09:06)
[2018-12-30] MEDS: DOCUSATE SODIUM 100 MG CAPSULE PO SCH ×2 (09:06→21:36)
[2018-12-30] MEDS: ATORVASTATIN 20 MG TABLET PO SCH (09:06)
[2018-12-30] MEDS: GENTAMICIN 0.1% OINT 15 GM TUBE TOP SCH ×3 (09:07→21:37)
[2018-12-30] MEDS: ENOXAPARIN 30 MG/0.3 ML SYRINGE SUBCUT SCH (11:38)
[2018-12-30] MEDS: CINACALCET 30 MG TABLET PO SCH (21:36)
[2018-12-30] MEDS: GABAPENTIN 300 MG CAPSULE PO SCH (21:36)
[2018-12-31] MEDS: methylPREDNISolone SOD SUC 40 MG/1 ML VIAL IV SCH ×2 (03:10→22:13)
[2018-12-31 05:49] LABS: Basophils # 0.1 10*3/uL (0.0-0.2); Basophils % 0.5 % (0.0-0.8); Eosinophils # 0.1 10*3/uL (0.0-0.87); Eosinophils % 1.3 % (0.00-10.9); Hematocrit 25.9 VOL% (42.0-52.0); Hemoglobin 7.8 GM/DL (14.0-18.0); Immature Granulocytes % 3.3 %; Immature Granulocytes Absolute 0.34 #; Lymphocytes # 1.7 10*3/uL (1.4-4.0); Lymphocytes % 16.4 % (21.2-54.2); Mean Corpuscular HGB Conc 30.1 GM/DL (32-36); Mean Corpuscular Volume 91.5 FL (87-102); Mean Platelet Volume 9.4 FL (9.6-12.0); Monocytes % 6.2 % (1.7-12.7); NRBC # 0.02 10*3/uL; Neutrophils % 72.3 % (38.7-73.9); Platelet Count 229 T/CUMM (130-400); Red Blood Count 2.83 MC/CUMM (3.8-5.5); Red Cell Distribution Width 17.7 % (9.3-17.3); White Blood Count 10.2 T/CUMM (4-12)
[2018-12-31 06:13] LABS: Albumin 1.5 G/DL (3.4-5.0); Bilirubin,Total 0.9 MG/DL (0.2-1.0); Calcium 8.9 MG/DL (8.5-10.1); Osmolality,Calculated 302.5 MOS/KG (273-304); Total Protein 6.4 G/DL (6.4-8.3)
[2018-12-31] MEDS: PANTOPRAZOLE 40 MG TABLET PO SCH (10:22)
[2018-12-31] MEDS: CALCIUM ACETATE 667 MG CAPSULE PO SCH ×3 (10:22→16:30)
[2018-12-31] MEDS: FOLIC ACID 1 MG TABLET PO SCH (10:22)
[2018-12-31] MEDS: DOCUSATE SODIUM 100 MG CAPSULE PO SCH ×2 (10:22→22:16)
[2018-12-31] MEDS: MAGNESIUM GLUCONATE 500 MG TABLET PO SCH (10:23)
[2018-12-31] MEDS: CARVEDILOL 25 MG TABLET PO SCH ×2 (10:23→16:31)
[2018-12-31] MEDS: ENOXAPARIN 30 MG/0.3 ML SYRINGE SUBCUT SCH (10:23)
[2018-12-31] MEDS: ASPIRIN EC 81 MG TABLET PO SCH (10:23)
[2018-12-31] MEDS: ATORVASTATIN 20 MG TABLET PO SCH (10:23)
[2018-12-31] MEDS: ACETIC ACID 0.25% IRRIGATION 1,000 ML BOTTLE IRRIG SCH ×2 (10:24→22:13)
[2018-12-31] MEDS: GENTAMICIN 0.1% OINT 15 GM TUBE TOP SCH ×3 (10:24→22:16)
[2018-12-31] MEDS: ALBUMIN 25% 25 GM in PREMIX 1 EACH IV SCH ×2 (15:34→23:58)
[2018-12-31] MEDS: CINACALCET 30 MG TABLET PO SCH (22:14)
[2018-12-31] MEDS: GABAPENTIN 300 MG CAPSULE PO SCH (22:16)
[2019-01-01] MEDS: hydrALAZINE 20 MG/1 ML VIAL IV PRN (02:22)
[2019-01-01] MEDS ORDERED: MULTIVITAMIN (BEROCCA) TABLET PO SCH (09:00)
[2019-01-01] MEDS: ALBUMIN 25% 25 GM in PREMIX 1 EACH IV SCH (09:05)
[2019-01-01] MEDS: methylPREDNISolone SOD SUC 40 MG/1 ML VIAL IV SCH (09:11)
[2019-01-01] MEDS: CARVEDILOL 25 MG TABLET PO SCH (09:12)
[2019-01-01] MEDS: ASPIRIN EC 81 MG TABLET PO SCH (09:12)
[2019-01-01] MEDS: FOLIC ACID 1 MG TABLET PO SCH (09:12)
[2019-01-01] MEDS: CALCIUM ACETATE 667 MG CAPSULE PO SCH (09:12)
[2019-01-01] MEDS: ATORVASTATIN 20 MG TABLET PO SCH (09:12)
[2019-01-01] MEDS: DOCUSATE SODIUM 100 MG CAPSULE PO SCH (09:13)
[2019-01-01] MEDS: ACETIC ACID 0.25% IRRIGATION 1,000 ML BOTTLE IRRIG SCH (09:13)
[2019-01-01] MEDS: ENOXAPARIN 30 MG/0.3 ML SYRINGE SUBCUT SCH (09:13)
[2019-01-01] MEDS: MAGNESIUM GLUCONATE 500 MG TABLET PO SCH (09:13)
[2019-01-01] MEDS: GENTAMICIN 0.1% OINT 15 GM TUBE TOP SCH (09:13)
[2019-01-01 13:15] VITALS: BP 193/103
[2019-01-09] MEDS ORDERED: EPOETIN BETA METHOXY PEG SUBCUT SCH (09:00)
== END 2019-01-01 15:10 | disposition home health service (06) | DRG 299 ==
LOC: N.EDINP 10:19 → N.ED 10:19 → N.EDINP 14:20 → N.2E 14:27
PROVIDERS: ADMIT Internal Medicine; ATTEND Internal Medicine

== ENCOUNTER 2019-04-10 23:24 | Inpatient (IN) ==
[2019-04-11] MEDS ORDERED: ONDANSETRON 4 MG/2 ML VIAL IV STA (02:03)
[2019-04-11 02:39] LABS: Basophils % 0.3 % (0.0-0.8); Eosinophils # 0.1 10*3/uL (0.0-0.87); Eosinophils % 0.6 % (0.00-10.9); Hemoglobin 9.1 GM/DL (14.0-18.0); Immature Granulocytes % 0.4 %; Immature Granulocytes Absolute 0.04 #; Lymphocytes # 1.8 10*3/uL (1.4-4.0); Mean Corpuscular HGB Conc 30.3 GM/DL (32-36); Mean Corpuscular Volume 92.6 FL (87-102); Monocytes % 10.1 % (1.7-12.7); Neutrophils % 70.6 % (38.7-73.9); Platelet Count 192 T/CUMM (130-400); Red Blood Count 3.24 MC/CUMM (3.8-5.5); Red Cell Distribution Width 16.5 % (9.3-17.3)
[2019-04-11] MEDS ORDERED: MORPHINE 4 MG/1 ML VIAL IV STA (02:40)
[2019-04-11 03:05] LABS: Alanine Aminotransferase < 9 U/L (16-61); Alkaline Phosphatase 71 U/L (45-117); Aspartate Amino Transferase 26 U/L (0-37); Blood Urea Nitrogen 55 MG/DL (7-18); Calcium 9.5 MG/DL (8.5-10.1); Estimated Glom Filtration Rate 4 ML/MIN; Glucose 104 MG/DL (74-106); Osmolality,Calculated 293.4 MOS/KG (273-304); Total Protein 6.9 G/DL (6.4-8.3)
[2019-04-11] MEDS ORDERED: CIPROFLOXACIN INJ 400 MG in PREMIX 1 EACH IV STA (03:09)
[2019-04-11] MEDS ORDERED: metroNIDAZOLE INJ 500 MG in PREMIX 1 EACH IV STA (03:09)
[2019-04-11] MEDS: MORPHINE 4 MG/1 ML VIAL IV PRN ×4 (04:35→19:06)
[2019-04-11] MEDS: ONDANSETRON 4 MG/2 ML VIAL IV PRN ×2 (04:35→17:26)
[2019-04-11] MEDS ORDERED: INFLUENZA VIRUS VACCINE 0.5 ML SYRINGE IM ONE (05:26)
[2019-04-11] MEDS: SODIUM CHLORIDE 0.9% 1,000 ML IV SCH (06:34)
[2019-04-11] MEDS: metroNIDAZOLE INJ 500 MG in PREMIX 1 EACH IV SCH ×2 (11:27→19:42)
[2019-04-11] MEDS: hydrALAZINE 20 MG/1 ML VIAL IV PRN ×2 (12:40→18:20)
[2019-04-12] MEDS: MORPHINE 4 MG/1 ML VIAL IV PRN (00:11)
[2019-04-12] MEDS: hydrALAZINE 20 MG/1 ML VIAL IV PRN ×3 (00:58→23:51)
[2019-04-12] MEDS: metroNIDAZOLE INJ 500 MG in PREMIX 1 EACH IV SCH ×3 (03:07→19:50)
[2019-04-12 05:19] LABS: Basophils % 0.3 % (0.0-0.8); Eosinophils # 0.1 10*3/uL (0.0-0.87); Eosinophils % 0.8 % (0.00-10.9); Hematocrit 28.8 VOL% (42.0-52.0); Hemoglobin 8.7 GM/DL (14.0-18.0); Immature Granulocytes % 0.6 %; Immature Granulocytes Absolute 0.07 #; Lymphocytes # 1.7 10*3/uL (1.4-4.0); Lymphocytes % 14.7 % (21.2-54.2); Mean Corpuscular HGB Conc 30.2 GM/DL (32-36); Mean Corpuscular Volume 92.3 FL (87-102); Mean Platelet Volume 9.2 FL (9.6-12.0); Monocytes % 10.9 % (1.7-12.7); Neutrophils % 72.7 % (38.7-73.9); Platelet Count 202 T/CUMM (130-400); Red Blood Count 3.12 MC/CUMM (3.8-5.5); White Blood Count 11.6 T/CUMM (4-12)
[2019-04-12] MEDS: CIPROFLOXACIN INJ 400 MG in PREMIX 1 EACH IV SCH (05:19)
[2019-04-12 05:42] LABS: Calcium 9.8 MG/DL (8.5-10.1); Osmolality,Calculated 298.1 MOS/KG (273-304)
[2019-04-12] MEDS: SODIUM CHLORIDE 0.9% 1,000 ML IV SCH (19:53)
[2019-04-13] MEDS: metroNIDAZOLE INJ 500 MG in PREMIX 1 EACH IV SCH (03:04)
[2019-04-13] MEDS: hydrALAZINE 20 MG/1 ML VIAL IV PRN (04:17)
[2019-04-13] MEDS: CIPROFLOXACIN INJ 400 MG in PREMIX 1 EACH IV SCH (04:18)
[2019-04-13] MEDS: SODIUM CHLORIDE 0.9% 1,000 ML IV SCH (04:19)
[2019-04-13 08:15] VITALS: BP 164/93
== END 2019-04-13 11:08 | disposition home or self-care (01) | DRG 391 ==
LOC: N.ED 23:24 → N.EDINP 04-11 03:56 → N.3E 04-11 04:35
PROVIDERS: ADMIT Internal Medicine Geriatric Medicine; ATTEND Internal Medicine Geriatric Medicine

== ENCOUNTER 2019-04-20 06:01 | Inpatient (IN) ==
[2019-04-20] MEDS ORDERED: MORPHINE 4 MG/1 ML VIAL IV STA (06:18)
[2019-04-20] MEDS ORDERED: ONDANSETRON 4 MG/2 ML VIAL IV STA (06:20)
[2019-04-20 06:30] LABS: Basophils % 0.2 % (0.0-0.8); Eosinophils % 0.1 % (0.00-10.9); Hematocrit 32.9 VOL% (42.0-52.0); Immature Granulocytes % 1.1 %; Immature Granulocytes Absolute 0.25 #; Lymphocytes # 2.5 10*3/uL (1.4-4.0); Lymphocytes % 10.6 % (21.2-54.2); Mean Corpuscular HGB Conc 30.4 GM/DL (32-36); Mean Corpuscular Volume 91.6 FL (87-102); Mean Platelet Volume 8.8 FL (9.6-12.0); Monocytes % 4.1 % (1.7-12.7); Neutrophils % 83.9 % (38.7-73.9); Platelet Count 275 T/CUMM (130-400); Red Blood Count 3.59 MC/CUMM (3.8-5.5); Red Cell Distribution Width 15.8 % (9.3-17.3); White Blood Count 23.4 T/CUMM (4-12)
[2019-04-20 06:44] LABS: Alanine Aminotransferase < 9 U/L (16-61); Alkaline Phosphatase 71 U/L (45-117); Aspartate Amino Transferase 28 U/L (0-37); Blood Urea Nitrogen 53 MG/DL (7-18); Calcium 9.1 MG/DL (8.5-10.1); Estimated Glom Filtration Rate 4 ML/MIN; Glucose 124 MG/DL (74-106); Osmolality,Calculated 287.8 MOS/KG (273-304); Total Protein 7.6 G/DL (6.4-8.3)
[2019-04-20 07:21] LABS: Band Neutrophils 2 % (0-10); Hypochromasia Slight; Lymphocytes 10 % (20-55); Metamyelocytes 2 %; Segmented Neutrophils 84 % (50-85); Total Cells Counted 100
[2019-04-20 07:22] LABS: Platelet Estimate Normal; Polychromasia Slight
[2019-04-20] MEDS ORDERED: MORPHINE 10 MG/1 ML VIAL IV STA (09:57)
[2019-04-20] MEDS ORDERED: ceFAZolin 1,000 MG VIAL INTRAPERIT ONE ×2 (09:58→12:08)
[2019-04-20] MEDS ORDERED: ACETAMINOPHEN 325 MG TABLET PO PRN (10:08)
[2019-04-20] MEDS ORDERED: NITROGLYCERIN SL 0.4 MG TABLET SL PRN (10:13)
[2019-04-20] MEDS ORDERED: EPOETIN BETA METHOXY PEG SUBCUT SCH (10:15)
[2019-04-20] MEDS ORDERED: CALCIUM ACETATE 2001 MG PO SCH (12:00)
[2019-04-20] MEDS: HYDROmorphone 2 MG TABLET PO PRN ×2 (15:01→21:36)
[2019-04-20] MEDS ORDERED: carvediloL 25 MG TABLET PO SCH (17:00)
[2019-04-20] MEDS ORDERED: ACETIC ACID 0.25% IRRIGATION 1,000 ML BOTTLE IRRIG SCH (21:00)
[2019-04-20] MEDS ORDERED: GABAPENTIN 300 MG CAPSULE PO SCH (21:00)
[2019-04-20] MEDS ORDERED: TICAGRELOR 90 MG TABLET PO SCH (21:00)
[2019-04-20] MEDS: DOCUSATE SODIUM 100 MG CAPSULE PO SCH (21:30)
[2019-04-20] MEDS: ENOXAPARIN 30 MG/0.3 ML SYRINGE SUBCUT SCH (21:30)
[2019-04-20] MEDS: HEPARIN 1,000 UNIT/1 ML VIAL INTRAPERIT SCH (22:47)
[2019-04-21] MEDS ORDERED: HEPARIN 1,000 UNIT/1 ML VIAL INTRAPERIT SCH
[2019-04-21] MEDS: HYDROmorphone 2 MG TABLET PO PRN ×4 (02:21→15:53)
[2019-04-21 05:06] LABS: Basophils % 0.1 % (0.0-0.8); Eosinophils # 0.1 10*3/uL (0.0-0.87); Eosinophils % 0.4 % (0.00-10.9); Hematocrit 25.7 VOL% (42.0-52.0); Hemoglobin 7.7 GM/DL (14.0-18.0); Immature Granulocytes % 0.8 %; Immature Granulocytes Absolute 0.16 #; Lymphocytes # 2.4 10*3/uL (1.4-4.0); Lymphocytes % 11.7 % (21.2-54.2); Mean Corpuscular Volume 90.8 FL (87-102); Mean Platelet Volume 9.2 FL (9.6-12.0); Monocytes % 6.5 % (1.7-12.7); Neutrophils % 80.5 % (38.7-73.9); Platelet Count 223 T/CUMM (130-400); Red Blood Count 2.83 MC/CUMM (3.8-5.5); Red Cell Distribution Width 15.3 % (9.3-17.3); White Blood Count 20.9 T/CUMM (4-12)
[2019-04-21 05:25] LABS: Alanine Aminotransferase < 6 U/L (16-61); Albumin 1.5 G/DL (3.4-5.0); Alkaline Phosphatase 69 U/L (45-117); Aspartate Amino Transferase 14 U/L (0-37); Blood Urea Nitrogen 61 MG/DL (7-18); Estimated Glom Filtration Rate 4 ML/MIN; Glucose 92 MG/DL (74-106); HDL Cholesterol 31 MG/DL (40-60); Osmolality,Calculated 295.4 MOS/KG (273-304); Risk Ratio 3.13; Total Protein 6.1 G/DL (6.4-8.3); Triglycerides 115 MG/DL (2-150)
[2019-04-21 05:53] LABS: Band Neutrophils 1 % (0-10); Lymphocytes 15 % (20-55); Myelocytes 1 %; Segmented Neutrophils 81 % (50-85); Total Cells Counted 100
[2019-04-21 05:54] LABS: Anisocytosis 1+; Hypochromasia 1+; Ovalocytes 1+; Platelet Estimate Adequate
[2019-04-21] MEDS: DOCUSATE SODIUM 100 MG CAPSULE PO SCH ×2 (08:47→21:16)
[2019-04-21] MEDS: PANTOPRAZOLE 40 MG TABLET PO SCH (08:47)
[2019-04-21] MEDS ORDERED: ASPIRIN EC 81 MG TABLET PO SCH (09:00)
[2019-04-21] MEDS ORDERED: FOLIC ACID 1 MG TABLET PO SCH (09:00)
[2019-04-21] MEDS ORDERED: NON-FORMULARY MEDICATION (Magnesium 250 MG) PO SCH (09:00)
[2019-04-21] MEDS ORDERED: VIT B C IRON FUM FA D3 ZINC OX PO SCH (09:00)
[2019-04-21] MEDS ORDERED: ATORVASTATIN 20 MG TABLET PO SCH (09:00)
[2019-04-21] MEDS: HEPARIN 1,000 UNIT/1 ML VIAL INTRAPERIT SCH ×3 (10:13→22:43)
[2019-04-21] MEDS: MAGNESIUM SULF RIDER 2 GM in PREMIX 1 EACH IV PRN ×2 (15:46→17:21)
[2019-04-21] MEDS ORDERED: PHENYLEPHRINE 0.5% NASAL SPRAY 15 ML BOTTLE BOTH NARES PRN (16:24)
[2019-04-21] MEDS: ONDANSETRON 4 MG/2 ML VIAL IV PRN (17:13)
[2019-04-21] MEDS: MORPHINE 4 MG/1 ML VIAL IV PRN ×2 (17:45→21:56)
[2019-04-21] MEDS: ENOXAPARIN 30 MG/0.3 ML SYRINGE SUBCUT SCH (21:16)
[2019-04-21] MEDS ORDERED: ceFAZolin 1,000 MG VIAL INTRAPERIT SCH (23:30)
[2019-04-22] MEDS: MORPHINE 4 MG/1 ML VIAL IV PRN (03:11)
[2019-04-22] MEDS: ONDANSETRON 4 MG/2 ML VIAL IV PRN ×3 (03:15→17:05)
[2019-04-22 05:24] LABS: Basophils % 0.1 % (0.0-0.8); Eosinophils # 0.2 10*3/uL (0.0-0.87); Hematocrit 27.8 VOL% (42.0-52.0); Hemoglobin 8.6 GM/DL (14.0-18.0); Lymphocytes # 2.5 10*3/uL (1.4-4.0); Lymphocytes % 12.7 % (21.2-54.2); Mean Corpuscular HGB Conc 30.9 GM/DL (32-36); Mean Corpuscular Volume 89.7 FL (87-102); Mean Platelet Volume 9.2 FL (9.6-12.0); Monocytes % 6.7 % (1.7-12.7); Neutrophils % 78.5 % (38.7-73.9); Platelet Count 255 T/CUMM (130-400); Red Cell Distribution Width 15.2 % (9.3-17.3)
[2019-04-22] MEDS: HEPARIN 1,000 UNIT/1 ML VIAL INTRAPERIT SCH ×3 (05:26→23:16)
[2019-04-22 05:43] LABS: Alanine Aminotransferase < 6 U/L (16-61); Albumin 1.5 G/DL (3.4-5.0); Alkaline Phosphatase 84 U/L (45-117); Aspartate Amino Transferase 14 U/L (0-37); Blood Urea Nitrogen 62 MG/DL (7-18); Calcium 9.2 MG/DL (8.5-10.1); Estimated Glom Filtration Rate 4 ML/MIN; Glucose 102 MG/DL (74-106); Total Protein 6.6 G/DL (6.4-8.3)
[2019-04-22 05:46] LABS: Atypical Lymphocytes Few; Eosinophils 1 % (0-10); Lymphocytes 10 % (20-55); Segmented Neutrophils 83 % (50-85); Total Cells Counted 100
[2019-04-22 05:47] LABS: Hypochromasia 1+; Microcytosis Slight; Polychromasia Slight; Target Cells Slight
[2019-04-22 05:48] LABS: Platelet Estimate Normal
[2019-04-22] MEDS: PANTOPRAZOLE 40 MG TABLET PO SCH (09:07)
[2019-04-22] MEDS: DOCUSATE SODIUM 100 MG CAPSULE PO SCH ×2 (09:07→21:27)
[2019-04-22] MEDS: HYDROmorphone 2 MG TABLET PO PRN (13:08)
[2019-04-22] MEDS: ALBUMIN 25% 25 GM in PREMIX 1 EACH IV SCH (20:20)
[2019-04-22] MEDS: CINACALCET 30 MG TABLET PO SCH (21:26)
[2019-04-22] MEDS: ENOXAPARIN 30 MG/0.3 ML SYRINGE SUBCUT SCH (21:26)
[2019-04-22] MEDS: carvediloL 25 MG TABLET PO SCH (21:27)
[2019-04-22] MEDS: traMADol 50 MG TABLET PO SCH (21:27)
[2019-04-22] MEDS: GABAPENTIN 300 MG CAPSULE PO SCH (21:27)
[2019-04-22] MEDS: MEROPENEM 1,000 MG VIAL INTRAPERIT SCH (23:16)
[2019-04-22] MEDS: GENTAMICIN 80 MG/2 ML VIAL INTRAPERIT SCH (23:16)
[2019-04-23] MEDS: ALBUMIN 25% 25 GM in PREMIX 1 EACH IV SCH ×3 (04:03→20:52)
[2019-04-23] MEDS: HEPARIN 1,000 UNIT/1 ML VIAL INTRAPERIT SCH ×4 (06:02→23:08)
[2019-04-23] MEDS ORDERED: ALBUTEROL/IPRATROPIUM 3 ML NEB RESP TX SCH (08:00)
[2019-04-23] MEDS ORDERED: ALBUTEROL/IPRATROPIUM 3 ML NEB RESP TX PRN (08:07)
[2019-04-23 08:41] LABS: Basophils % 0.2 % (0.0-0.8); Eosinophils # 0.2 10*3/uL (0.0-0.87); Eosinophils % 1.6 % (0.00-10.9); Hematocrit 26.9 VOL% (42.0-52.0); Hemoglobin 8.5 GM/DL (14.0-18.0); Immature Granulocytes Absolute 0.12 #; Lymphocytes # 1.8 10*3/uL (1.4-4.0); Lymphocytes % 14.9 % (21.2-54.2); Mean Corpuscular HGB Conc 31.6 GM/DL (32-36); Mean Corpuscular Volume 88.2 FL (87-102); Mean Platelet Volume 8.9 FL (9.6-12.0); Neutrophils % 74.3 % (38.7-73.9); Platelet Count 274 T/CUMM (130-400); Red Blood Count 3.05 MC/CUMM (3.8-5.5); White Blood Count 12.1 T/CUMM (4-12)
[2019-04-23] MEDS: ASPIRIN EC 81 MG TABLET PO SCH (08:53)
[2019-04-23] MEDS: PANTOPRAZOLE 40 MG TABLET PO SCH (08:53)
[2019-04-23] MEDS: carvediloL 25 MG TABLET PO SCH ×2 (08:53→22:07)
[2019-04-23] MEDS: DOCUSATE SODIUM 100 MG CAPSULE PO SCH ×2 (08:53→22:06)
[2019-04-23] MEDS: traMADol 50 MG TABLET PO SCH ×4 (08:54→22:07)
[2019-04-23 08:59] LABS: Alanine Aminotransferase < 6 U/L (16-61); Albumin 2.1 G/DL (3.4-5.0); Alkaline Phosphatase 73 U/L (45-117); Aspartate Amino Transferase 11 U/L (0-37); Blood Urea Nitrogen 57 MG/DL (7-18); Calcium 9.2 MG/DL (8.5-10.1); Estimated Glom Filtration Rate 4 ML/MIN; Glucose 126 MG/DL (74-106); Osmolality,Calculated 287.1 MOS/KG (273-304); Total Protein 6.8 G/DL (6.4-8.3)
[2019-04-23] MEDS ORDERED: GLUCAGON 1 MG VIAL IM PRN (12:11)
[2019-04-23] MEDS ORDERED: DEXTROSE 50% 25 GM/50 ML VIAL IV PRN (12:11)
[2019-04-23] MEDS: CINACALCET 30 MG TABLET PO SCH (22:06)
[2019-04-23] MEDS: GABAPENTIN 300 MG CAPSULE PO SCH (22:07)
[2019-04-23] MEDS: ENOXAPARIN 30 MG/0.3 ML SYRINGE SUBCUT SCH (22:07)
[2019-04-23] MEDS: GENTAMICIN 80 MG/2 ML VIAL INTRAPERIT SCH (23:08)
[2019-04-23] MEDS: MEROPENEM 1,000 MG VIAL INTRAPERIT SCH (23:08)
[2019-04-24] MEDS: ALBUMIN 25% 25 GM in PREMIX 1 EACH IV SCH ×2 (04:07→12:45)
[2019-04-24] MEDS: HEPARIN 1,000 UNIT/1 ML VIAL INTRAPERIT SCH ×3 (06:03→18:06)
[2019-04-24 06:09] LABS: Basophils % 0.4 % (0.0-0.8); Eosinophils # 0.2 10*3/uL (0.0-0.87); Eosinophils % 2.1 % (0.00-10.9); Hemoglobin 7.4 GM/DL (14.0-18.0); Immature Granulocytes % 1.7 %; Immature Granulocytes Absolute 0.16 #; Lymphocytes % 20.9 % (21.2-54.2); Mean Corpuscular HGB Conc 30.8 GM/DL (32-36); Mean Corpuscular Volume 89.6 FL (87-102); Mean Platelet Volume 8.9 FL (9.6-12.0); Monocytes % 9.5 % (1.7-12.7); Neutrophils % 65.4 % (38.7-73.9); Platelet Count 258 T/CUMM (130-400); Red Blood Count 2.68 MC/CUMM (3.8-5.5); White Blood Count 9.5 T/CUMM (4-12)
[2019-04-24 06:46] LABS: Alanine Aminotransferase < 6 U/L (16-61); Albumin 2.6 G/DL (3.4-5.0); Alkaline Phosphatase 62 U/L (45-117); Aspartate Amino Transferase 9 U/L (0-37); Blood Urea Nitrogen 56 MG/DL (7-18); Calcium 9.3 MG/DL (8.5-10.1); Estimated Glom Filtration Rate 4 ML/MIN; Glucose 84 MG/DL (74-106); Osmolality,Calculated 287.8 MOS/KG (273-304); Total Protein 6.5 G/DL (6.4-8.3)
[2019-04-24] MEDS: PANTOPRAZOLE 40 MG TABLET PO SCH (08:44)
[2019-04-24] MEDS: traMADol 50 MG TABLET PO SCH ×4 (08:44→21:52)
[2019-04-24] MEDS: DOCUSATE SODIUM 100 MG CAPSULE PO SCH ×2 (08:44→21:51)
[2019-04-24] MEDS: carvediloL 25 MG TABLET PO SCH ×2 (08:44→21:51)
[2019-04-24] MEDS: ASPIRIN EC 81 MG TABLET PO SCH (08:45)
[2019-04-24] MEDS ORDERED: SODIUM CHLORIDE 0.9% 1,000 ML IV PRN (21:44)
[2019-04-24] MEDS: CINACALCET 30 MG TABLET PO SCH (21:51)
[2019-04-24] MEDS: GABAPENTIN 300 MG CAPSULE PO SCH (21:51)
[2019-04-24] MEDS: ENOXAPARIN 30 MG/0.3 ML SYRINGE SUBCUT SCH (21:51)
[2019-04-25] MEDS: GENTAMICIN 80 MG/2 ML VIAL INTRAPERIT SCH ×2 (00:24→23:36)
[2019-04-25] MEDS: HEPARIN 1,000 UNIT/1 ML VIAL INTRAPERIT SCH ×5 (00:24→23:36)
[2019-04-25] MEDS: MEROPENEM 1,000 MG VIAL INTRAPERIT SCH ×2 (00:24→23:36)
[2019-04-25] MEDS: PANTOPRAZOLE 40 MG TABLET PO SCH (08:39)
[2019-04-25] MEDS: DOCUSATE SODIUM 100 MG CAPSULE PO SCH ×2 (08:39→21:23)
[2019-04-25] MEDS: carvediloL 25 MG TABLET PO SCH ×2 (08:39→21:23)
[2019-04-25] MEDS: traMADol 50 MG TABLET PO SCH ×4 (08:39→21:23)
[2019-04-25] MEDS: ASPIRIN EC 81 MG TABLET PO SCH (08:39)
[2019-04-25 09:34] LABS: Basophils # 0.1 10*3/uL (0.0-0.2); Basophils % 0.5 % (0.0-0.8); Eosinophils # 0.2 10*3/uL (0.0-0.87); Eosinophils % 1.9 % (0.00-10.9); Immature Granulocytes % 2.5 %; Immature Granulocytes Absolute 0.28 #; Lymphocytes # 2.1 10*3/uL (1.4-4.0); Lymphocytes % 19.2 % (21.2-54.2); Mean Corpuscular HGB Conc 32.5 GM/DL (32-36); Mean Corpuscular Volume 90.1 FL (87-102); Mean Platelet Volume 8.8 FL (9.6-12.0); Monocytes % 10.7 % (1.7-12.7); NRBC # 0.02 10*3/uL; Neutrophils % 65.2 % (38.7-73.9); Red Cell Distribution Width 16.1 % (9.3-17.3); White Blood Count 11.1 T/CUMM (4-12)
[2019-04-25 09:39] LABS: Red Blood Count 3.55 MC/CUMM (3.8-5.5)
[2019-04-25 09:40] LABS: Hemoglobin 10.4 GM/DL (14.0-18.0); Platelet Count 319 T/CUMM (130-400)
[2019-04-25] MEDS: GABAPENTIN 300 MG CAPSULE PO SCH (21:23)
[2019-04-25] MEDS: CINACALCET 30 MG TABLET PO SCH (21:23)
[2019-04-25] MEDS: ENOXAPARIN 30 MG/0.3 ML SYRINGE SUBCUT SCH (21:24)
[2019-04-26] MEDS: HEPARIN 1,000 UNIT/1 ML VIAL INTRAPERIT SCH ×2 (05:45→12:38)
[2019-04-26] MEDS: carvediloL 25 MG TABLET PO SCH (08:42)
[2019-04-26] MEDS: ASPIRIN EC 81 MG TABLET PO SCH (08:42)
[2019-04-26] MEDS: PANTOPRAZOLE 40 MG TABLET PO SCH (08:42)
[2019-04-26] MEDS: DOCUSATE SODIUM 100 MG CAPSULE PO SCH (08:42)
[2019-04-26] MEDS: traMADol 50 MG TABLET PO SCH ×2 (09:15→14:12)
[2019-04-26 12:17] VITALS: BP 145/73
== END 2019-04-26 14:46 | disposition home or self-care (01) | DRG 919 ==
LOC: N.ED 06:01 → N.EDINP 10:08 → N.5E 11:20
PROVIDERS: ADMIT Internal Medicine; ATTEND Internal Medicine

== ENCOUNTER 2019-10-17 16:35 | Inpatient (IN) ==
[2019-10-17 17:24] LABS: Basophils % 0.2 % (0.0-0.8); Eosinophils # 0.1 10*3/uL (0.0-0.87); Eosinophils % 0.7 % (0.00-10.9); Hematocrit 22.9 VOL% (42.0-52.0); Hemoglobin 7.1 GM/DL (14.0-18.0); Immature Granulocytes % 0.6 %; Immature Granulocytes Absolute 0.08 #; Lymphocytes # 1.3 10*3/uL (1.4-4.0); Lymphocytes % 9.8 % (21.2-54.2); Mean Corpuscular Volume 93.1 FL (87-102); Mean Platelet Volume 9.9 FL (9.6-12.0); Monocytes % 7.3 % (1.7-12.7); Neutrophils % 81.4 % (38.7-73.9); Platelet Count 114 T/CUMM (130-400); Red Blood Count 2.46 MC/CUMM (3.8-5.5); Red Cell Distribution Width 15.8 % (9.3-17.3); White Blood Count 13.6 T/CUMM (4-12)
[2019-10-17] MEDS ORDERED: AZITHROMYCIN INJ 500 MG in SODIUM CHLORIDE 0.9% 250 ML IV STA (17:42)
[2019-10-17] MEDS ORDERED: cefTRIAXone 1,000 MG in SODIUM CHLORIDE 0.9% 100 ML IV STA (17:42)
[2019-10-17 17:44] LABS: Albumin 2.4 G/DL (3.4-5.0); Bilirubin,Total 0.5 MG/DL (0.2-1.0); Calcium 7.7 MG/DL (8.5-10.1); Osmolality,Calculated 307.3 MOS/KG (273-304); Total Protein 6.3 G/DL (6.4-8.3)
[2019-10-17 17:58] LABS: Ferritin 2215.6 ng/ml (26-388)
[2019-10-17] MEDS ORDERED: VANCOMYCIN INJ 1,000 MG in SODIUM CHLORIDE 0.9% 250 ML IV STA (18:50)
[2019-10-17] MEDS ORDERED: ONDANSETRON 4 MG/2 ML VIAL IV PRN (20:33)
[2019-10-17] MEDS ORDERED: MORPHINE 4 MG/1 ML VIAL IV PRN (20:33)
[2019-10-17] MEDS ORDERED: DEXTROSE 10% 250 ML BAG IV PRN (20:33)
[2019-10-17] MEDS ORDERED: AZITHROMYCIN INJ 500 MG in SODIUM CHLORIDE 0.9% 250 ML IV SCH (20:33)
[2019-10-17] MEDS ORDERED: ACETAMINOPHEN 325 MG TABLET PO PRN (20:33)
[2019-10-17] MEDS ORDERED: GLUCAGON 1 MG VIAL IM PRN (20:33)
[2019-10-17] MEDS: DOCUSATE SODIUM 100 MG CAPSULE PO SCH (22:30)
[2019-10-17] MEDS: carvediloL 25 MG TABLET PO SCH (22:30)
[2019-10-17] MEDS: HYDROXYCHLOROQUINE 200 MG TABLET PO SCH (22:30)
[2019-10-18] MEDS: INSULIN REGULAR 100 UNIT/ML SUBCUT SCH ×4 (00:45→17:48)
[2019-10-18] MEDS ORDERED: ALBUTEROL/IPRATROPIUM 3 ML NEB RESP TX SCH (01:00)
[2019-10-18 04:49] LABS: Basophils % 0.3 % (0.0-0.8); Eosinophils # 0.1 10*3/uL (0.0-0.87); Eosinophils % 0.9 % (0.00-10.9); Hematocrit 23.2 VOL% (42.0-52.0); Hemoglobin 7.1 GM/DL (14.0-18.0); Immature Granulocytes % 0.4 %; Immature Granulocytes Absolute 0.06 #; Lymphocytes # 1.3 10*3/uL (1.4-4.0); Lymphocytes % 9.2 % (21.2-54.2); Mean Corpuscular HGB Conc 30.6 GM/DL (32-36); Mean Corpuscular Volume 93.2 FL (87-102); Mean Platelet Volume 9.9 FL (9.6-12.0); Monocytes % 6.7 % (1.7-12.7); Neutrophils % 82.5 % (38.7-73.9); Platelet Count 118 T/CUMM (130-400); Red Blood Count 2.49 MC/CUMM (3.8-5.5); Red Cell Distribution Width 15.8 % (9.3-17.3); White Blood Count 13.6 T/CUMM (4-12)
[2019-10-18 05:02] LABS: Albumin 2.4 G/DL (3.4-5.0); Bilirubin,Total 0.6 MG/DL (0.2-1.0); Calcium 8.3 MG/DL (8.5-10.1); Osmolality,Calculated 302.5 MOS/KG (273-304)
[2019-10-18] MEDS: PANTOPRAZOLE 40 MG TABLET PO SCH (08:41)
[2019-10-18] MEDS: carvediloL 25 MG TABLET PO SCH ×2 (08:41→17:48)
[2019-10-18] MEDS: DOCUSATE SODIUM 100 MG CAPSULE PO SCH ×2 (08:41→20:30)
[2019-10-18] MEDS: HYDROXYCHLOROQUINE 200 MG TABLET PO SCH ×2 (08:42→20:30)
[2019-10-18] MEDS: amLODIPine 10 MG TABLET PO SCH (08:42)
[2019-10-18] MEDS ORDERED: MAGNESIUM SULF RIDER 2 GM in PREMIX 1 EACH IV ONE (10:00)
[2019-10-18] MEDS: BUDESONIDE/FORMOTEROL 160-4.5 INHALER 6 GM INH SCH ×2 (11:32→20:30)
[2019-10-18] MEDS: ZINC SULFATE 220 MG CAPSULE PO SCH (13:03)
[2019-10-18] MEDS: cefTRIAXone 500 MG in SYRINGE 1 EACH IV SCH (13:03)
[2019-10-18] MEDS: AZITHROMYCIN 250 MG TABLET PO SCH (20:30)
[2019-10-19] MEDS: INSULIN REGULAR 100 UNIT/ML SUBCUT SCH ×4 (03:00→19:07)
[2019-10-19 05:55] LABS: Basophils % 0.3 % (0.0-0.8); Eosinophils # 0.1 10*3/uL (0.0-0.87); Eosinophils % 0.4 % (0.00-10.9); Hematocrit 23.6 VOL% (42.0-52.0); Hemoglobin 7.3 GM/DL (14.0-18.0); Immature Granulocytes % 0.6 %; Immature Granulocytes Absolute 0.09 #; Lymphocytes # 1.3 10*3/uL (1.4-4.0); Lymphocytes % 8.4 % (21.2-54.2); Mean Corpuscular HGB Conc 30.9 GM/DL (32-36); Mean Corpuscular Volume 92.9 FL (87-102); Mean Platelet Volume 9.9 FL (9.6-12.0); Monocytes % 8.9 % (1.7-12.7); Neutrophils % 81.4 % (38.7-73.9); Platelet Count 157 T/CUMM (130-400); Red Blood Count 2.54 MC/CUMM (3.8-5.5); Red Cell Distribution Width 15.8 % (9.3-17.3); White Blood Count 15.4 T/CUMM (4-12)
[2019-10-19 06:10] LABS: Calcium 8.8 MG/DL (8.5-10.1); Osmolality,Calculated 304.5 MOS/KG (273-304)
[2019-10-19] MEDS: amLODIPine 10 MG TABLET PO SCH (09:09)
[2019-10-19] MEDS: HYDROXYCHLOROQUINE 200 MG TABLET PO SCH ×2 (09:09→21:30)
[2019-10-19] MEDS: DOCUSATE SODIUM 100 MG CAPSULE PO SCH ×2 (09:09→21:30)
[2019-10-19] MEDS: BUDESONIDE/FORMOTEROL 160-4.5 INHALER 6 GM INH SCH ×2 (09:09→21:30)
[2019-10-19] MEDS: carvediloL 25 MG TABLET PO SCH ×2 (09:09→17:20)
[2019-10-19] MEDS: PANTOPRAZOLE 40 MG TABLET PO SCH (09:09)
[2019-10-19] MEDS: cefTRIAXone 500 MG in SYRINGE 1 EACH IV SCH (12:06)
[2019-10-19] MEDS: AZITHROMYCIN 250 MG TABLET PO SCH (21:30)
[2019-10-19] MEDS: HEPARIN 1,000 UNIT/1 ML VIAL INTRAPERIT SCH (21:30)
[2019-10-20] MEDS: INSULIN REGULAR 100 UNIT/ML SUBCUT SCH ×5 (01:11→23:58)
[2019-10-20 05:16] LABS: Basophils % 0.2 % (0.0-0.8); Eosinophils # 0.1 10*3/uL (0.0-0.87); Eosinophils % 0.6 % (0.00-10.9); Hematocrit 22.2 VOL% (42.0-52.0); Immature Granulocytes % 0.4 %; Immature Granulocytes Absolute 0.05 #; Lymphocytes # 1.3 10*3/uL (1.4-4.0); Lymphocytes % 10.8 % (21.2-54.2); Mean Corpuscular HGB Conc 31.5 GM/DL (32-36); Mean Platelet Volume 9.8 FL (9.6-12.0); Monocytes % 9.3 % (1.7-12.7); Neutrophils % 78.7 % (38.7-73.9); Platelet Count 147 T/CUMM (130-400); Red Blood Count 2.44 MC/CUMM (3.8-5.5); Red Cell Distribution Width 15.6 % (9.3-17.3); White Blood Count 11.9 T/CUMM (4-12)
[2019-10-20 05:45] LABS: Calcium 9.2 MG/DL (8.5-10.1); Osmolality,Calculated 302.5 MOS/KG (273-304)
[2019-10-20] MEDS: carvediloL 25 MG TABLET PO SCH ×2 (09:45→16:15)
[2019-10-20] MEDS: DOCUSATE SODIUM 100 MG CAPSULE PO SCH ×2 (09:45→20:44)
[2019-10-20] MEDS: PANTOPRAZOLE 40 MG TABLET PO SCH (09:46)
[2019-10-20] MEDS: BUDESONIDE/FORMOTEROL 160-4.5 INHALER 6 GM INH SCH ×2 (09:46→20:44)
[2019-10-20] MEDS: amLODIPine 10 MG TABLET PO SCH (09:46)
[2019-10-20] MEDS: cefTRIAXone 500 MG in SYRINGE 1 EACH IV SCH (13:17)
[2019-10-20] MEDS: HYDROXYCHLOROQUINE 200 MG TABLET PO SCH (13:17)
[2019-10-20] MEDS: ZINC SULFATE 220 MG CAPSULE PO SCH (13:17)
[2019-10-20] MEDS: AZITHROMYCIN 250 MG TABLET PO SCH (20:44)
[2019-10-20] MEDS ORDERED: HEPARIN 1,000 UNIT/1 ML VIAL INTRAPERIT SCH (21:00)
[2019-10-20] MEDS: HEPARIN 1,000 UNIT/1 ML VIAL INTRAPERIT SCH (23:56)
[2019-10-21] MEDS: INSULIN REGULAR 100 UNIT/ML SUBCUT SCH (05:06)
[2019-10-21 06:31] LABS: Basophils % 0.4 % (0.0-0.8); Eosinophils # 0.2 10*3/uL (0.0-0.87); Eosinophils % 1.7 % (0.00-10.9); Hematocrit 20.7 VOL% (42.0-52.0); Immature Granulocytes % 0.5 %; Immature Granulocytes Absolute 0.05 #; Lymphocytes # 1.3 10*3/uL (1.4-4.0); Lymphocytes % 14.6 % (21.2-54.2); Mean Corpuscular HGB Conc 30.4 GM/DL (32-36); Mean Corpuscular Volume 93.7 FL (87-102); Mean Platelet Volume 9.9 FL (9.6-12.0); Monocytes % 7.4 % (1.7-12.7); Neutrophils % 75.4 % (38.7-73.9); Platelet Count 150 T/CUMM (130-400); Red Blood Count 2.21 MC/CUMM (3.8-5.5); Red Cell Distribution Width 15.6 % (9.3-17.3); White Blood Count 9.2 T/CUMM (4-12)
[2019-10-21 06:33] LABS: Hemoglobin 6.3 GM/DL (14.0-18.0)
[2019-10-21 06:49] LABS: Calcium 9.1 MG/DL (8.5-10.1); Osmolality,Calculated 308.3 MOS/KG (273-304)
[2019-10-21] MEDS ORDERED: SODIUM CHLORIDE 0.9% 1,000 ML IV PRN (07:14)
[2019-10-21] MEDS: amLODIPine 10 MG TABLET PO SCH (09:00)
[2019-10-21] MEDS: PANTOPRAZOLE 40 MG TABLET PO SCH (09:00)
[2019-10-21] MEDS: carvediloL 25 MG TABLET PO SCH (09:00)
[2019-10-21] MEDS: DOCUSATE SODIUM 100 MG CAPSULE PO SCH (09:00)
[2019-10-21] MEDS: BUDESONIDE/FORMOTEROL 160-4.5 INHALER 6 GM INH SCH (09:01)
[2019-10-21 10:53] VITALS: BP 198/92
== END 2019-10-21 13:25 | disposition home or self-care (01) | DRG 193 ==
LOC: N.ED 16:35 → N.EDINP 18:38 → N.2E 19:31
PROVIDERS: ADMIT Internal Medicine; ATTEND Internal Medicine

== ENCOUNTER 2019-10-21 19:30 | Inpatient (IN) ==
[2019-10-21 20:46] LABS: Basophils % 0.5 % (0.0-0.8); Eosinophils # 0.2 10*3/uL (0.0-0.87); Eosinophils % 2.6 % (0.00-10.9); Hematocrit 21.9 VOL% (42.0-52.0); Hemoglobin 6.8 GM/DL (14.0-18.0); Immature Granulocytes % 0.5 %; Immature Granulocytes Absolute 0.04 #; Lymphocytes # 1.4 10*3/uL (1.4-4.0); Lymphocytes % 15.4 % (21.2-54.2); Mean Corpuscular HGB Conc 31.1 GM/DL (32-36); Mean Corpuscular Volume 91.3 FL (87-102); Mean Platelet Volume 9.5 FL (9.6-12.0); Monocytes % 6.4 % (1.7-12.7); Neutrophils % 74.6 % (38.7-73.9); Platelet Count 152 T/CUMM (130-400); Red Cell Distribution Width 15.5 % (9.3-17.3); White Blood Count 8.8 T/CUMM (4-12)
[2019-10-21 21:05] LABS: Albumin 2.2 G/DL (3.4-5.0); Bilirubin,Total 0.5 MG/DL (0.2-1.0); Calcium 9.4 MG/DL (8.5-10.1); Osmolality,Calculated 310.4 MOS/KG (273-304); Total Protein 7.2 G/DL (6.4-8.3)
[2019-10-21] MEDS ORDERED: ACETAMINOPHEN 325 MG TABLET PO PRN (21:58)
[2019-10-21] MEDS ORDERED: hydrALAZINE 20 MG/1 ML VIAL IV ONE (22:18)
[2019-10-21] MEDS ORDERED: hydrALAZINE 20 MG/1 ML VIAL ONE (22:19)
[2019-10-22] MEDS: hydrALAZINE 20 MG/1 ML VIAL IV PRN ×4 (01:14→21:46)
[2019-10-22 06:32] LABS: Basophils % 0.5 % (0.0-0.8); Eosinophils # 0.3 10*3/uL (0.0-0.87); Eosinophils % 3.9 % (0.00-10.9); Hematocrit 20.2 VOL% (42.0-52.0); Immature Granulocytes % 0.5 %; Immature Granulocytes Absolute 0.04 #; Lymphocytes # 1.4 10*3/uL (1.4-4.0); Lymphocytes % 16.1 % (21.2-54.2); Mean Corpuscular HGB Conc 31.2 GM/DL (32-36); Mean Corpuscular Volume 91.4 FL (87-102); Mean Platelet Volume 9.7 FL (9.6-12.0); Monocytes % 6.3 % (1.7-12.7); Neutrophils % 72.7 % (38.7-73.9); Platelet Count 177 T/CUMM (130-400); Red Blood Count 2.21 MC/CUMM (3.8-5.5); Red Cell Distribution Width 15.4 % (9.3-17.3); White Blood Count 8.4 T/CUMM (4-12)
[2019-10-22 06:43] LABS: Hemoglobin 6.3 GM/DL (14.0-18.0)
[2019-10-22 06:53] LABS: Bilirubin,Total 0.6 MG/DL (0.2-1.0); Calcium 9.4 MG/DL (8.5-10.1); Osmolality,Calculated 307.4 MOS/KG (273-304); Total Protein 6.9 G/DL (6.4-8.3)
[2019-10-22] MEDS ORDERED: SODIUM CHLORIDE 0.9% 1,000 ML IV PRN (09:33)
[2019-10-22] MEDS: PANTOPRAZOLE 40 MG TABLET PO SCH (10:04)
[2019-10-22 17:18] LABS: Hematocrit 23.9 VOL% (42.0-52.0); Hemoglobin 7.6 GM/DL (14.0-18.0)
[2019-10-23 06:15] LABS: Basophils % 0.5 % (0.0-0.8); Eosinophils # 0.4 10*3/uL (0.0-0.87); Eosinophils % 4.5 % (0.00-10.9); Hematocrit 23.5 VOL% (42.0-52.0); Hemoglobin 7.5 GM/DL (14.0-18.0); Immature Granulocytes % 0.6 %; Immature Granulocytes Absolute 0.05 #; Lymphocytes # 1.4 10*3/uL (1.4-4.0); Lymphocytes % 15.7 % (21.2-54.2); Mean Corpuscular HGB Conc 31.9 GM/DL (32-36); Mean Corpuscular Volume 89.4 FL (87-102); Mean Platelet Volume 9.3 FL (9.6-12.0); Monocytes % 7.4 % (1.7-12.7); Neutrophils % 71.3 % (38.7-73.9); Platelet Count 197 T/CUMM (130-400); Red Blood Count 2.63 MC/CUMM (3.8-5.5); Red Cell Distribution Width 16.2 % (9.3-17.3); White Blood Count 8.7 T/CUMM (4-12)
[2019-10-23] MEDS: hydrALAZINE 20 MG/1 ML VIAL IV PRN ×2 (07:52→19:15)
[2019-10-23] MEDS: PANTOPRAZOLE 40 MG TABLET PO SCH (08:21)
[2019-10-23] MEDS ORDERED: carvediloL 25 MG TABLET PO ONE (09:26)
[2019-10-23] MEDS: amLODIPine 10 MG TABLET PO SCH (09:36)
[2019-10-23] MEDS ORDERED: ALBUTEROL/IPRATROPIUM 3 ML NEB RESP TX PRN (10:25)
[2019-10-23] MEDS ORDERED: PHENYLEPHRINE 0.5% NASAL SPRAY 15 ML BOTTLE BOTH NARES PRN (10:25)
[2019-10-23] MEDS: ONDANSETRON 4 MG/2 ML VIAL IV PRN (11:00)
[2019-10-23] MEDS: BUDESONIDE/FORMOTEROL 160-4.5 INHALER 6 GM INH SCH ×2 (11:50→21:30)
[2019-10-23] MEDS: GENTAMICIN 0.1% CREAM 15 GM TUBE TOP SCH (11:50)
[2019-10-23] MEDS: ZINC SULFATE 220 MG CAPSULE PO SCH (11:52)
[2019-10-23] MEDS: ATORVASTATIN 20 MG TABLET PO SCH (11:52)
[2019-10-23] MEDS: CALCIUM ACETATE 667 MG CAPSULE PO SCH ×2 (11:52→17:46)
[2019-10-23] MEDS: TICAGRELOR 90 MG TABLET PO SCH ×2 (11:52→21:25)
[2019-10-23] MEDS: DOCUSATE SODIUM 100 MG CAPSULE PO SCH ×3 (11:52→21:31)
[2019-10-23] MEDS: MULTIVITAMIN (BEROCCA) TABLET PO SCH (11:52)
[2019-10-23] MEDS: LORATADINE 10 MG TABLET PO SCH (11:53)
[2019-10-23] MEDS: MAGNESIUM GLUCONATE 500 MG TABLET PO SCH (11:53)
[2019-10-23] MEDS: ASPIRIN EC 81 MG TABLET PO SCH (11:53)
[2019-10-23] MEDS: FOLIC ACID 1 MG TABLET PO SCH (11:53)
[2019-10-23] MEDS ORDERED: HEPARIN 10,000 UNIT/10 ML VIAL INTRAPERIT ONE (13:04)
[2019-10-23] MEDS: HEPARIN 10,000 UNIT/10 ML VIAL INTRAPERIT SCH ×2 (14:04→17:50)
[2019-10-23] MEDS ORDERED: NF- (Sucroferric Oxyhydroxide [Velphoro] 500 MG) PO SCH (15:00)
[2019-10-23] MEDS: carvediloL 25 MG TABLET PO SCH (17:46)
[2019-10-23] MEDS: ALBUTEROL/IPRATROPIUM 3 ML NEB RESP TX SCH (19:50)
[2019-10-23] MEDS: CINACALCET 30 MG TABLET PO SCH (21:25)
[2019-10-23] MEDS: AZITHROMYCIN 250 MG TABLET PO SCH (21:25)
[2019-10-23] MEDS ORDERED: GENTAMICIN 80 MG/2 ML VIAL INTRAPERIT SCH (23:00)
[2019-10-24] MEDS: ALBUTEROL/IPRATROPIUM 3 ML NEB RESP TX SCH ×4 (01:00→19:20)
[2019-10-24] MEDS: HEPARIN 10,000 UNIT/10 ML VIAL INTRAPERIT SCH ×6 (01:43→17:01)
[2019-10-24] MEDS: hydrALAZINE 20 MG/1 ML VIAL IV PRN ×2 (03:19→23:28)
[2019-10-24 06:06] LABS: Basophils # 0.1 10*3/uL (0.0-0.2); Basophils % 0.6 % (0.0-0.8); Eosinophils # 0.4 10*3/uL (0.0-0.87); Eosinophils % 4.5 % (0.00-10.9); Hematocrit 22.4 VOL% (42.0-52.0); Immature Granulocytes % 0.5 %; Immature Granulocytes Absolute 0.04 #; Lymphocytes # 1.4 10*3/uL (1.4-4.0); Lymphocytes % 18.2 % (21.2-54.2); Mean Corpuscular HGB Conc 31.3 GM/DL (32-36); Mean Corpuscular Volume 91.8 FL (87-102); Mean Platelet Volume 9.4 FL (9.6-12.0); Monocytes % 8.7 % (1.7-12.7); Neutrophils % 67.5 % (38.7-73.9); Platelet Count 178 T/CUMM (130-400); Red Blood Count 2.44 MC/CUMM (3.8-5.5); Red Cell Distribution Width 16.1 % (9.3-17.3); White Blood Count 7.8 T/CUMM (4-12)
[2019-10-24 06:25] LABS: Albumin 2.3 G/DL (3.4-5.0); Calcium 9.5 MG/DL (8.5-10.1); Osmolality,Calculated 303.5 MOS/KG (273-304); Total Protein 6.8 G/DL (6.4-8.3); Uric Acid 8.8 MG/DL (3.5-7.2)
[2019-10-24] MEDS: CALCIUM ACETATE 667 MG CAPSULE PO SCH ×3 (07:25→17:01)
[2019-10-24] MEDS: carvediloL 25 MG TABLET PO SCH ×2 (07:50→16:56)
[2019-10-24] MEDS: amLODIPine 10 MG TABLET PO SCH ×2 (07:50→08:38)
[2019-10-24] MEDS: ASPIRIN EC 81 MG TABLET PO SCH (08:37)
[2019-10-24] MEDS: PANTOPRAZOLE 40 MG TABLET PO SCH (08:38)
[2019-10-24] MEDS: LORATADINE 10 MG TABLET PO SCH (08:38)
[2019-10-24] MEDS: GENTAMICIN 0.1% CREAM 15 GM TUBE TOP SCH (08:38)
[2019-10-24] MEDS: TICAGRELOR 90 MG TABLET PO SCH ×2 (08:38→21:03)
[2019-10-24] MEDS: FOLIC ACID 1 MG TABLET PO SCH (08:38)
[2019-10-24] MEDS: MULTIVITAMIN (BEROCCA) TABLET PO SCH (08:38)
[2019-10-24] MEDS: ATORVASTATIN 20 MG TABLET PO SCH (08:38)
[2019-10-24] MEDS: DOCUSATE SODIUM 100 MG CAPSULE PO SCH ×2 (08:38→21:03)
[2019-10-24] MEDS: MAGNESIUM GLUCONATE 500 MG TABLET PO SCH (08:38)
[2019-10-24] MEDS: BUDESONIDE/FORMOTEROL 160-4.5 INHALER 6 GM INH SCH ×2 (09:56→21:03)
[2019-10-24] MEDS ORDERED: VANCOMYCIN INJ 1,750 MG in SODIUM CHLORIDE 0.9% 500 ML IV ONE (13:00)
[2019-10-24] MEDS ORDERED: HEPARIN 5,000 UNIT/1 ML VIAL ONE (14:15)
[2019-10-24] MEDS ORDERED: LIDOCAINE 1%/EPI INJ 20 ML VIAL ONE (14:15)
[2019-10-24] MEDS ORDERED: BUPIVACAINE MPF 0.25% 30 ML VIAL ONE (14:15)
[2019-10-24] MEDS ORDERED: fentaNYL 100 MCG/2 ML VIAL ONE (15:20)
[2019-10-24] MEDS ORDERED: LIDOCAINE 2% 5 ML VIAL ONE (16:38)
[2019-10-24] MEDS ORDERED: propofoL 200 MG/20 ML VIAL IV ONE (16:38)
[2019-10-24] MEDS ORDERED: LABETALOL 20 MG/4 ML SYRINGE IV ONE (16:38)
[2019-10-24] MEDS ORDERED: hydrALAZINE 20 MG/1 ML VIAL ONE (16:39)
[2019-10-24] MEDS ORDERED: SODIUM CHLORIDE 0.9% 100 ML IV ONE (16:39)
[2019-10-24] MEDS ORDERED: SODIUM CHLORIDE 0.9% 250 ML IV ONE (16:39)
[2019-10-24] MEDS ORDERED: MIDAZOLAM 2 MG/2 ML VIAL ONE (16:39)
[2019-10-24] MEDS ORDERED: HEPARIN 10,000 UNIT/10 ML VIAL IV SCH (16:45)
[2019-10-24] MEDS: CINACALCET 30 MG TABLET PO SCH (21:03)
[2019-10-24] MEDS: AZITHROMYCIN 250 MG TABLET PO SCH (21:03)
[2019-10-25] MEDS: ALBUTEROL/IPRATROPIUM 3 ML NEB RESP TX SCH ×4 (01:00→19:53)
[2019-10-25] MEDS: traMADol 50 MG TABLET PO PRN (02:10)
[2019-10-25] MEDS: ONDANSETRON 4 MG/2 ML VIAL IV PRN (03:45)
[2019-10-25] MEDS: hydrALAZINE 20 MG/1 ML VIAL IV PRN ×2 (05:09→14:09)
[2019-10-25 06:02] LABS: Basophils % 0.5 % (0.0-0.8); Eosinophils # 0.4 10*3/uL (0.0-0.87); Eosinophils % 5.2 % (0.00-10.9); Hematocrit 22.5 VOL% (42.0-52.0); Hemoglobin 6.8 GM/DL (14.0-18.0); Immature Granulocytes % 0.4 %; Immature Granulocytes Absolute 0.03 #; Lymphocytes # 1.1 10*3/uL (1.4-4.0); Lymphocytes % 13.5 % (21.2-54.2); Mean Corpuscular HGB Conc 30.2 GM/DL (32-36); Mean Corpuscular Volume 95.3 FL (87-102); Mean Platelet Volume 9.3 FL (9.6-12.0); Monocytes % 8.1 % (1.7-12.7); Neutrophils % 72.3 % (38.7-73.9); Platelet Count 167 T/CUMM (130-400); Red Blood Count 2.36 MC/CUMM (3.8-5.5); Red Cell Distribution Width 15.9 % (9.3-17.3); White Blood Count 8.1 T/CUMM (4-12)
[2019-10-25 06:26] LABS: Albumin 2.3 G/DL (3.4-5.0); Calcium 8.9 MG/DL (8.5-10.1); Osmolality,Calculated 301.4 MOS/KG (273-304); Total Protein 6.7 G/DL (6.4-8.3)
[2019-10-25] MEDS: carvediloL 25 MG TABLET PO SCH ×2 (11:00→16:04)
[2019-10-25] MEDS: amLODIPine 10 MG TABLET PO SCH (11:00)
[2019-10-25] MEDS: ASPIRIN EC 81 MG TABLET PO SCH (12:42)
[2019-10-25] MEDS: ZINC SULFATE 220 MG CAPSULE PO SCH (12:42)
[2019-10-25] MEDS: MAGNESIUM GLUCONATE 500 MG TABLET PO SCH (12:42)
[2019-10-25] MEDS: PANTOPRAZOLE 40 MG TABLET PO SCH (12:43)
[2019-10-25] MEDS: TICAGRELOR 90 MG TABLET PO SCH ×2 (12:43→20:44)
[2019-10-25] MEDS: DOCUSATE SODIUM 100 MG CAPSULE PO SCH ×2 (12:43→20:45)
[2019-10-25] MEDS: FOLIC ACID 1 MG TABLET PO SCH (12:43)
[2019-10-25] MEDS: MULTIVITAMIN (BEROCCA) TABLET PO SCH (12:43)
[2019-10-25] MEDS: ATORVASTATIN 20 MG TABLET PO SCH (12:43)
[2019-10-25] MEDS: BUDESONIDE/FORMOTEROL 160-4.5 INHALER 6 GM INH SCH ×2 (12:44→20:48)
[2019-10-25] MEDS: LORATADINE 10 MG TABLET PO SCH (12:44)
[2019-10-25] MEDS: GENTAMICIN 0.1% CREAM 15 GM TUBE TOP SCH (12:44)
[2019-10-25] MEDS: CALCIUM ACETATE 667 MG CAPSULE PO SCH ×3 (12:45→16:04)
[2019-10-25] MEDS: CINACALCET 30 MG TABLET PO SCH (20:45)
[2019-10-25] MEDS: AZITHROMYCIN 250 MG TABLET PO SCH (20:45)
[2019-10-26] MEDS: traMADol 50 MG TABLET PO PRN ×2 (00:23→22:28)
[2019-10-26] MEDS: ALBUTEROL/IPRATROPIUM 3 ML NEB RESP TX SCH ×4 (01:25→19:58)
[2019-10-26] MEDS: hydrALAZINE 20 MG/1 ML VIAL IV PRN ×2 (06:00→19:05)
[2019-10-26 06:07] LABS: Basophils % 0.4 % (0.0-0.8); Eosinophils # 0.4 10*3/uL (0.0-0.87); Eosinophils % 5.4 % (0.00-10.9); Hematocrit 21.9 VOL% (42.0-52.0); Hemoglobin 6.8 GM/DL (14.0-18.0); Immature Granulocytes % 0.7 %; Immature Granulocytes Absolute 0.05 #; Lymphocytes # 1.4 10*3/uL (1.4-4.0); Lymphocytes % 19.1 % (21.2-54.2); Mean Corpuscular HGB Conc 31.1 GM/DL (32-36); Mean Platelet Volume 9.3 FL (9.6-12.0); Monocytes % 9.6 % (1.7-12.7); Neutrophils % 64.8 % (38.7-73.9); Platelet Count 164 T/CUMM (130-400); Red Blood Count 2.33 MC/CUMM (3.8-5.5); Red Cell Distribution Width 15.5 % (9.3-17.3); White Blood Count 7.1 T/CUMM (4-12)
[2019-10-26 06:37] LABS: Albumin 2.2 G/DL (3.4-5.0); Bilirubin,Total 0.7 MG/DL (0.2-1.0); Calcium 8.8 MG/DL (8.5-10.1); Total Protein 6.7 G/DL (6.4-8.3)
[2019-10-26] MEDS: MAGNESIUM GLUCONATE 500 MG TABLET PO SCH (08:10)
[2019-10-26] MEDS: LORATADINE 10 MG TABLET PO SCH (08:10)
[2019-10-26] MEDS: CALCIUM ACETATE 667 MG CAPSULE PO SCH ×3 (08:10→16:43)
[2019-10-26] MEDS: carvediloL 25 MG TABLET PO SCH ×2 (08:17→16:43)
[2019-10-26] MEDS: ASPIRIN EC 81 MG TABLET PO SCH (08:17)
[2019-10-26] MEDS: MULTIVITAMIN (BEROCCA) TABLET PO SCH (08:17)
[2019-10-26] MEDS: ATORVASTATIN 20 MG TABLET PO SCH (08:17)
[2019-10-26] MEDS: TICAGRELOR 90 MG TABLET PO SCH ×2 (08:17→22:28)
[2019-10-26] MEDS: GENTAMICIN 0.1% CREAM 15 GM TUBE TOP SCH (08:18)
[2019-10-26] MEDS: DOCUSATE SODIUM 100 MG CAPSULE PO SCH ×2 (08:18→22:28)
[2019-10-26] MEDS: amLODIPine 10 MG TABLET PO SCH (08:18)
[2019-10-26] MEDS: PANTOPRAZOLE 40 MG TABLET PO SCH (08:18)
[2019-10-26] MEDS: FOLIC ACID 1 MG TABLET PO SCH (08:18)
[2019-10-26] MEDS: BUDESONIDE/FORMOTEROL 160-4.5 INHALER 6 GM INH SCH ×2 (08:19→22:30)
[2019-10-26] MEDS ORDERED: SODIUM CHLORIDE 0.9% 1,000 ML IV PRN (18:18)
[2019-10-26] MEDS ORDERED: hydrALAZINE 20 MG/1 ML VIAL IV ONE (20:37)
[2019-10-26] MEDS: CINACALCET 30 MG TABLET PO SCH (22:28)
[2019-10-26] MEDS: AZITHROMYCIN 250 MG TABLET PO SCH (22:28)
[2019-10-27] MEDS: ALBUTEROL/IPRATROPIUM 3 ML NEB RESP TX SCH ×4 (03:06→19:40)
[2019-10-27] MEDS: hydrALAZINE 20 MG/1 ML VIAL IV PRN (04:52)
[2019-10-27] MEDS: ONDANSETRON 4 MG/2 ML VIAL IV PRN (05:24)
[2019-10-27 06:40] LABS: Basophils % 0.4 % (0.0-0.8); Eosinophils # 0.4 10*3/uL (0.0-0.87); Eosinophils % 5.1 % (0.00-10.9); Hematocrit 27.2 VOL% (42.0-52.0); Immature Granulocytes % 0.7 %; Immature Granulocytes Absolute 0.05 #; Lymphocytes # 1.3 10*3/uL (1.4-4.0); Lymphocytes % 16.9 % (21.2-54.2); Mean Corpuscular HGB Conc 32.7 GM/DL (32-36); Mean Corpuscular Volume 87.7 FL (87-102); Mean Platelet Volume 9.3 FL (9.6-12.0); Monocytes % 10.3 % (1.7-12.7); Neutrophils % 66.6 % (38.7-73.9); Platelet Count 184 T/CUMM (130-400); Red Cell Distribution Width 17.3 % (9.3-17.3); White Blood Count 7.5 T/CUMM (4-12)
[2019-10-27 06:54] LABS: Hemoglobin 8.9 GM/DL (14.0-18.0)
[2019-10-27] MEDS: MULTIVITAMIN (BEROCCA) TABLET PO SCH (08:13)
[2019-10-27] MEDS: ZINC SULFATE 220 MG CAPSULE PO SCH (08:13)
[2019-10-27] MEDS: carvediloL 25 MG TABLET PO SCH ×2 (08:13→16:24)
[2019-10-27] MEDS: ASPIRIN EC 81 MG TABLET PO SCH (08:13)
[2019-10-27] MEDS: TICAGRELOR 90 MG TABLET PO SCH ×2 (08:13→20:54)
[2019-10-27] MEDS: ATORVASTATIN 20 MG TABLET PO SCH (08:14)
[2019-10-27] MEDS: MAGNESIUM GLUCONATE 500 MG TABLET PO SCH (08:14)
[2019-10-27] MEDS: FOLIC ACID 1 MG TABLET PO SCH (08:14)
[2019-10-27] MEDS: DOCUSATE SODIUM 100 MG CAPSULE PO SCH ×2 (08:14→20:54)
[2019-10-27] MEDS: CALCIUM ACETATE 667 MG CAPSULE PO SCH ×3 (08:14→16:24)
[2019-10-27] MEDS: BUDESONIDE/FORMOTEROL 160-4.5 INHALER 6 GM INH SCH ×2 (08:14→20:54)
[2019-10-27] MEDS: amLODIPine 10 MG TABLET PO SCH (08:14)
[2019-10-27] MEDS: PANTOPRAZOLE 40 MG TABLET PO SCH (08:14)
[2019-10-27] MEDS: LORATADINE 10 MG TABLET PO SCH (08:15)
[2019-10-27] MEDS: GENTAMICIN 0.1% CREAM 15 GM TUBE TOP SCH (08:16)
[2019-10-27] MEDS: AZITHROMYCIN 250 MG TABLET PO SCH (20:54)
[2019-10-27] MEDS: CINACALCET 30 MG TABLET PO SCH (20:54)
[2019-10-28] MEDS: hydrALAZINE 20 MG/1 ML VIAL IV PRN (01:27)
[2019-10-28] MEDS: ALBUTEROL/IPRATROPIUM 3 ML NEB RESP TX SCH ×2 (01:49→07:25)
[2019-10-28 05:28] LABS: Basophils % 0.3 % (0.0-0.8); Eosinophils # 0.4 10*3/uL (0.0-0.87); Eosinophils % 4.9 % (0.00-10.9); Hematocrit 24.9 VOL% (42.0-52.0); Immature Granulocytes % 0.5 %; Immature Granulocytes Absolute 0.04 #; Lymphocytes # 1.4 10*3/uL (1.4-4.0); Lymphocytes % 19.4 % (21.2-54.2); Mean Corpuscular HGB Conc 32.1 GM/DL (32-36); Mean Corpuscular Volume 87.4 FL (87-102); Mean Platelet Volume 9.4 FL (9.6-12.0); Monocytes % 11.5 % (1.7-12.7); Neutrophils % 63.4 % (38.7-73.9); Platelet Count 170 T/CUMM (130-400); Red Blood Count 2.85 MC/CUMM (3.8-5.5); Red Cell Distribution Width 17.1 % (9.3-17.3); White Blood Count 7.4 T/CUMM (4-12)
[2019-10-28 08:09] VITALS: BP 193/77
[2019-10-28] MEDS: TICAGRELOR 90 MG TABLET PO SCH (08:12)
[2019-10-28] MEDS: MAGNESIUM GLUCONATE 500 MG TABLET PO SCH (08:12)
[2019-10-28] MEDS: ASPIRIN EC 81 MG TABLET PO SCH (08:13)
[2019-10-28] MEDS: PANTOPRAZOLE 40 MG TABLET PO SCH (08:13)
[2019-10-28] MEDS: ATORVASTATIN 20 MG TABLET PO SCH (08:13)
[2019-10-28] MEDS: LORATADINE 10 MG TABLET PO SCH (08:13)
[2019-10-28] MEDS: amLODIPine 10 MG TABLET PO SCH (08:13)
[2019-10-28] MEDS: carvediloL 25 MG TABLET PO SCH (08:13)
[2019-10-28] MEDS: MULTIVITAMIN (BEROCCA) TABLET PO SCH (08:13)
[2019-10-28] MEDS: FOLIC ACID 1 MG TABLET PO SCH (08:13)
[2019-10-28] MEDS: DOCUSATE SODIUM 100 MG CAPSULE PO SCH (08:13)
[2019-10-28] MEDS: CALCIUM ACETATE 667 MG CAPSULE PO SCH (08:13)
[2019-10-28] MEDS: BUDESONIDE/FORMOTEROL 160-4.5 INHALER 6 GM INH SCH (08:14)
[2019-10-28] MEDS: GENTAMICIN 0.1% CREAM 15 GM TUBE TOP SCH (08:14)
== END 2019-10-28 10:00 | disposition home or self-care (01) | DRG 919 ==
LOC: N.EDINP 19:30 → N.ED 19:30 → N.3E 22:29
PROVIDERS: ADMIT Internal Medicine; ATTEND Internal Medicine

== ENCOUNTER 2020-02-06 02:24 | Inpatient (IN) ==
[2020-02-06] MEDS ORDERED: VANCOMYCIN INJ 1,000 MG in SODIUM CHLORIDE 0.9% 250 ML IV STA (02:50)
[2020-02-06 03:00] LABS: Basophils % 0.3 % (0.0-0.8); Eosinophils # 0.2 10*3/uL (0.0-0.87); Eosinophils % 2.3 % (0.00-10.9); Hematocrit 26.9 VOL% (42.0-52.0); Hemoglobin 8.5 GM/DL (14.0-18.0); Hgb & Hct Comparison OK; Immature Granulocytes % 0.3 %; Immature Granulocytes Absolute 0.03 #; Lymphocytes # 2.3 10*3/uL (1.4-4.0); Lymphocytes % 23.9 % (21.2-54.2); Mean Corpuscular HGB Conc 31.6 GM/DL (32-36); Mean Corpuscular Hemoglobin 30 PG (27-34); Mean Corpuscular Volume 95.7 FL (87-102); Monocytes # 0.8 10*3/uL (0.11-0.8); Monocytes % 8.5 % (1.7-12.7); Neutrophils # 6.1 10*3/uL (1.4-7.4); Neutrophils % 64.7 % (38.7-73.9); Platelet Count 157 T/CUMM (130-400)
[2020-02-06 03:10] LABS: INR 1.1; PT Patient Result 12.2 SECS (9.8-11.9)
[2020-02-06 03:20] LABS: Albumin/Globulin Ratio 0.5 RATIO (1.1-2.2); Anion Gap 12.4 MMOL/L (5.0-15.0); Bilirubin,Total 0.4 MG/DL (0.2-1.0); Globulin 5.1 G/DL (2.3-3.5); Magnesium 1.3 MG/DL (1.8-2.4); Osmolality,Calculated 300.5 MOS/KG (273-304); Potassium 4.4 MMOL/L (3.5-5.1)
[2020-02-06] MEDS ORDERED: ONDANSETRON 4 MG/2 ML VIAL IV PRN ×2 (03:47→09:46)
[2020-02-06] MEDS ORDERED: ACETAMINOPHEN 325 MG TABLET PO PRN (03:47)
[2020-02-06] MEDS ORDERED: SODIUM CHLORIDE 0.9% 250 ML IV SCH (08:30)
[2020-02-06] MEDS ORDERED: LIDOCAINE 1%/EPI INJ 20 ML VIAL ONE (08:32)
[2020-02-06] MEDS ORDERED: BUPIVACAINE 0.25% /EPI 10 ML VIAL ONE (08:32)
[2020-02-06] MEDS ORDERED: MAGNESIUM SULF RIDER 2 GM in PREMIX 1 EACH IV ONE (09:23)
[2020-02-06] MEDS ORDERED: GENTAMICIN INJ 100 MG in PREMIX 1 EACH IV ONE (09:28)
[2020-02-06] MEDS ORDERED: NITROGLYCERIN SL 0.4 MG TABLET SL PRN (09:31)
[2020-02-06] MEDS: HYDROmorphone 2 MG/1 ML VIAL IV PRN ×2 (09:48→09:53)
[2020-02-06] MEDS ORDERED: LIDOCAINE 2% 5 ML VIAL ONE (10:22)
[2020-02-06] MEDS ORDERED: SEVOFLURANE 1 UNIT/15 MINUTE INH ONE (10:22)
[2020-02-06] MEDS ORDERED: fentaNYL 100 MCG/2 ML VIAL ONE (10:22)
[2020-02-06] MEDS ORDERED: propofoL 200 MG/20 ML VIAL IV ONE (10:22)
[2020-02-06] MEDS ORDERED: MIDAZOLAM 2 MG/2 ML VIAL ONE (10:22)
[2020-02-06] MEDS ORDERED: GENTAMICIN INJ 100 MG in PREMIX 1 EACH IV PRN (10:36)
[2020-02-06] MEDS ORDERED: GENTAMICIN INJ 200 MG in SODIUM CHLORIDE 0.9% 100 ML IV PRN (10:58)
[2020-02-06] MEDS ORDERED: GENTAMICIN INJ 300 MG in SODIUM CHLORIDE 0.9% 100 ML IV ONE (11:00)
[2020-02-06] MEDS: DOCUSATE SODIUM 100 MG CAPSULE PO SCH ×2 (11:01→21:18)
[2020-02-06] MEDS: PANTOPRAZOLE 40 MG TABLET PO SCH (11:01)
[2020-02-06] MEDS: ASPIRIN EC 81 MG TABLET PO SCH (11:01)
[2020-02-06] MEDS: amLODIPine 10 MG TABLET PO SCH (11:01)
[2020-02-06] MEDS ORDERED: VANCOMYCIN INJ 750 MG in SODIUM CHLORIDE 0.9% 250 ML IV PRN (11:10)
[2020-02-06] MEDS: MORPHINE 4 MG/1 ML VIAL IV PRN ×2 (11:11→18:18)
[2020-02-06] MEDS ORDERED: VANCOMYCIN INJ 2,000 MG in SODIUM CHLORIDE 0.9% 500 ML IV ONE (12:00)
[2020-02-06] MEDS: ALBUTEROL/IPRATROPIUM 3 ML NEB RESP TX SCH ×2 (12:20→19:19)
[2020-02-06] MEDS: CALCIUM ACETATE 667 MG CAPSULE PO SCH ×2 (12:26→16:50)
[2020-02-06] MEDS: CLINDAMYCIN 300 MG CAPSULE PO SCH ×2 (14:45→21:18)
[2020-02-06] MEDS: NON-FORMULARY MEDICATION (Sucroferric Oxyhydroxide [Velphoro] 500 MG) PO SCH ×2 (16:40→21:20)
[2020-02-06] MEDS: carvediloL 25 MG TABLET PO SCH (16:50)
[2020-02-06] MEDS ORDERED: HEPARIN 10,000 UNIT/10 ML VIAL INTRAPERIT SCH (21:00)
[2020-02-06] MEDS: CINACALCET 30 MG TABLET PO SCH (21:17)
[2020-02-06] MEDS: BUDESONIDE/FORMOTEROL 160-4.5 INHALER 6 GM INH SCH (21:18)
[2020-02-06] MEDS: GABAPENTIN 300 MG CAPSULE PO SCH (21:18)
[2020-02-06] MEDS: HEPARIN 10,000 UNIT/10 ML VIAL INTRAPERIT SCH (23:59)
[2020-02-07] MEDS: ALBUTEROL/IPRATROPIUM 3 ML NEB RESP TX SCH ×4 (00:07→19:13)
[2020-02-07 05:46] LABS: Basophils % 0.2 % (0.0-0.8); Eosinophils # 0.3 10*3/uL (0.0-0.87); Eosinophils % 2.8 % (0.00-10.9); Hematocrit 23.5 VOL% (42.0-52.0); Hemoglobin 7.5 GM/DL (14.0-18.0); Hgb & Hct Comparison OK; Immature Granulocytes % 0.2 %; Immature Granulocytes Absolute 0.02 #; Lymphocytes # 1.7 10*3/uL (1.4-4.0); Lymphocytes % 18.7 % (21.2-54.2); Mean Corpuscular HGB Conc 31.9 GM/DL (32-36); Mean Corpuscular Hemoglobin 31 PG (27-34); Mean Corpuscular Volume 95.5 FL (87-102); Monocytes # 0.8 10*3/uL (0.11-0.8); Monocytes % 9.1 % (1.7-12.7); Neutrophils # 6.2 10*3/uL (1.4-7.4); Platelet Count 129 T/CUMM (130-400)
[2020-02-07 06:15] LABS: Anion Gap 10.6 MMOL/L (5.0-15.0); Magnesium 1.6 MG/DL (1.8-2.4); Osmolality,Calculated 301.7 MOS/KG (273-304); Potassium 5.6 MMOL/L (3.5-5.1); Uric Acid 7.5 MG/DL (3.5-7.2)
[2020-02-07] MEDS: CLINDAMYCIN 300 MG CAPSULE PO SCH ×3 (06:18→21:58)
[2020-02-07] MEDS: MORPHINE 4 MG/1 ML VIAL IV PRN ×2 (06:18→11:19)
[2020-02-07] MEDS: BUDESONIDE/FORMOTEROL 160-4.5 INHALER 6 GM INH SCH ×2 (10:15→22:16)
[2020-02-07] MEDS: GENTAMICIN 0.1% CREAM 15 GM TUBE TOP PRN (10:16)
[2020-02-07] MEDS: CALCIUM ACETATE 667 MG CAPSULE PO SCH ×3 (10:16→16:18)
[2020-02-07] MEDS: carvediloL 25 MG TABLET PO SCH ×2 (10:16→16:18)
[2020-02-07] MEDS: MAGNESIUM OXIDE 400 MG TABLET PO SCH (10:16)
[2020-02-07] MEDS: NON-FORMULARY MEDICATION (Sucroferric Oxyhydroxide [Velphoro] 500 MG) PO SCH ×4 (10:17→22:00)
[2020-02-07] MEDS: DOCUSATE SODIUM 100 MG CAPSULE PO SCH ×2 (10:17→21:59)
[2020-02-07] MEDS: ASPIRIN EC 81 MG TABLET PO SCH (10:17)
[2020-02-07] MEDS: amLODIPine 10 MG TABLET PO SCH (10:17)
[2020-02-07] MEDS: PANTOPRAZOLE 40 MG TABLET PO SCH (10:18)
[2020-02-07] MEDS ORDERED: VANCOMYCIN INJ 750 MG in SODIUM CHLORIDE 0.9% 250 ML IV PRN (15:04)
[2020-02-07] MEDS ORDERED: GENTAMICIN INJ 200 MG in SODIUM CHLORIDE 0.9% 100 ML IV PRN (15:04)
[2020-02-07] MEDS ORDERED: SODIUM CHLORIDE 0.9% 1,000 ML IV PRN (21:06)
[2020-02-07] MEDS ORDERED: MAGNESIUM SULF RIDER 2 GM in PREMIX 1 EACH IV ONE (21:35)
[2020-02-07] MEDS: CINACALCET 30 MG TABLET PO SCH (21:59)
[2020-02-07] MEDS: GABAPENTIN 300 MG CAPSULE PO SCH (21:59)
[2020-02-08] MEDS: ALBUTEROL/IPRATROPIUM 3 ML NEB RESP TX SCH ×4 (00:06→19:36)
[2020-02-08] MEDS: HEPARIN 10,000 UNIT/10 ML VIAL INTRAPERIT SCH ×2 (01:56→23:55)
[2020-02-08] MEDS: CLINDAMYCIN 300 MG CAPSULE PO SCH ×3 (06:30→22:06)
[2020-02-08 08:39] LABS: Basophils % 0.3 % (0.0-0.8); Eosinophils # 0.3 10*3/uL (0.0-0.87); Eosinophils % 2.8 % (0.00-10.9); Hematocrit 25.2 VOL% (42.0-52.0); Hgb & Hct Comparison OK; Immature Granulocytes % 0.5 %; Immature Granulocytes Absolute 0.05 #; Lymphocytes # 2.3 10*3/uL (1.4-4.0); Lymphocytes % 24.9 % (21.2-54.2); Mean Corpuscular HGB Conc 31.7 GM/DL (32-36); Mean Corpuscular Hemoglobin 30 PG (27-34); Monocytes # 0.8 10*3/uL (0.11-0.8); Monocytes % 8.9 % (1.7-12.7); Neutrophils # 5.9 10*3/uL (1.4-7.4); Neutrophils % 62.6 % (38.7-73.9); Platelet Count 106 T/CUMM (130-400)
[2020-02-08 09:02] LABS: Anion Gap 11.4 MMOL/L (5.0-15.0); Magnesium 1.9 MG/DL (1.8-2.4); Phosphorous 6.5 MG/DL (2.5-4.9); Potassium 5.4 MMOL/L (3.5-5.1)
[2020-02-08] MEDS: GENTAMICIN 0.1% CREAM 15 GM TUBE TOP PRN (10:00)
[2020-02-08] MEDS: NON-FORMULARY MEDICATION (Sucroferric Oxyhydroxide [Velphoro] 500 MG) PO SCH ×3 (10:00→22:07)
[2020-02-08] MEDS: BUDESONIDE/FORMOTEROL 160-4.5 INHALER 6 GM INH SCH ×2 (10:00→22:09)
[2020-02-08] MEDS: carvediloL 25 MG TABLET PO SCH ×2 (10:01→16:08)
[2020-02-08] MEDS: CALCIUM ACETATE 667 MG CAPSULE PO SCH ×3 (10:01→16:08)
[2020-02-08] MEDS: MAGNESIUM OXIDE 400 MG TABLET PO SCH (10:01)
[2020-02-08] MEDS: DOCUSATE SODIUM 100 MG CAPSULE PO SCH ×2 (10:01→22:06)
[2020-02-08] MEDS: ASPIRIN EC 81 MG TABLET PO SCH (10:01)
[2020-02-08] MEDS: amLODIPine 10 MG TABLET PO SCH (10:01)
[2020-02-08] MEDS: PANTOPRAZOLE 40 MG TABLET PO SCH (10:02)
[2020-02-08] MEDS: MORPHINE 4 MG/1 ML VIAL IV PRN (16:07)
[2020-02-08] MEDS: CINACALCET 30 MG TABLET PO SCH (22:05)
[2020-02-08] MEDS: GABAPENTIN 300 MG CAPSULE PO SCH (22:05)
[2020-02-09] MEDS: ALBUTEROL/IPRATROPIUM 3 ML NEB RESP TX SCH ×4 (01:47→19:15)
[2020-02-09 04:45] LABS: Basophils % 0.2 % (0.0-0.8); Eosinophils # 0.3 10*3/uL (0.0-0.87); Eosinophils % 3.2 % (0.00-10.9); Hematocrit 26.1 VOL% (42.0-52.0); Hemoglobin 8.2 GM/DL (14.0-18.0); Hgb & Hct Comparison OK; Immature Granulocytes % 0.5 %; Immature Granulocytes Absolute 0.04 #; Lymphocytes % 22.6 % (21.2-54.2); Mean Corpuscular HGB Conc 31.4 GM/DL (32-36); Mean Corpuscular Hemoglobin 30 PG (27-34); Mean Corpuscular Volume 94.9 FL (87-102); Monocytes # 0.8 10*3/uL (0.11-0.8); Monocytes % 9.5 % (1.7-12.7); Neutrophils # 5.6 10*3/uL (1.4-7.4); Platelet Count 127 T/CUMM (130-400)
[2020-02-09 05:26] LABS: Anion Gap 11.3 MMOL/L (5.0-15.0); Osmolality,Calculated 292.2 MOS/KG (273-304); Potassium 5.3 MMOL/L (3.5-5.1)
[2020-02-09] MEDS: CLINDAMYCIN 300 MG CAPSULE PO SCH ×3 (06:05→21:29)
[2020-02-09] MEDS: DOCUSATE SODIUM 100 MG CAPSULE PO SCH ×2 (09:14→21:28)
[2020-02-09] MEDS: ASPIRIN EC 81 MG TABLET PO SCH (09:14)
[2020-02-09] MEDS: CALCIUM ACETATE 667 MG CAPSULE PO SCH ×3 (09:14→17:21)
[2020-02-09] MEDS: MAGNESIUM OXIDE 400 MG TABLET PO SCH (09:14)
[2020-02-09] MEDS: carvediloL 25 MG TABLET PO SCH ×2 (09:14→17:21)
[2020-02-09] MEDS: amLODIPine 10 MG TABLET PO SCH (09:14)
[2020-02-09] MEDS: GENTAMICIN 0.1% CREAM 15 GM TUBE TOP PRN (09:15)
[2020-02-09] MEDS: NON-FORMULARY MEDICATION (Sucroferric Oxyhydroxide [Velphoro] 500 MG) PO SCH ×3 (09:15→21:29)
[2020-02-09] MEDS: BUDESONIDE/FORMOTEROL 160-4.5 INHALER 6 GM INH SCH ×2 (09:15→21:30)
[2020-02-09] MEDS: PANTOPRAZOLE 40 MG TABLET PO SCH (09:15)
[2020-02-09] MEDS: MORPHINE 4 MG/1 ML VIAL IV PRN (10:56)
[2020-02-09] MEDS ORDERED: GENTAMICIN INJ 200 MG in SODIUM CHLORIDE 0.9% 100 ML IV ONE (18:00)
[2020-02-09] MEDS: CINACALCET 30 MG TABLET PO SCH (21:27)
[2020-02-09] MEDS: GABAPENTIN 300 MG CAPSULE PO SCH (21:27)
[2020-02-10] MEDS: ALBUTEROL/IPRATROPIUM 3 ML NEB RESP TX SCH ×4 (00:35→20:14)
[2020-02-10] MEDS: HEPARIN 10,000 UNIT/10 ML VIAL INTRAPERIT SCH (03:38)
[2020-02-10 05:30] LABS: Basophils % 0.2 % (0.0-0.8); Eosinophils # 0.3 10*3/uL (0.0-0.87); Eosinophils % 3.4 % (0.00-10.9); Hematocrit 29.6 VOL% (42.0-52.0); Hemoglobin 9.5 GM/DL (14.0-18.0); Hgb & Hct Comparison OK; Immature Granulocytes % 0.3 %; Immature Granulocytes Absolute 0.03 #; Lymphocytes # 1.8 10*3/uL (1.4-4.0); Lymphocytes % 19.6 % (21.2-54.2); Mean Corpuscular HGB Conc 32.1 GM/DL (32-36); Mean Corpuscular Hemoglobin 30 PG (27-34); Mean Corpuscular Volume 92.5 FL (87-102); Monocytes # 0.8 10*3/uL (0.11-0.8); Monocytes % 9.1 % (1.7-12.7); Neutrophils # 6.2 10*3/uL (1.4-7.4); Neutrophils % 67.4 % (38.7-73.9); Platelet Count 173 T/CUMM (130-400)
[2020-02-10 05:58] LABS: Anion Gap 12.4 MMOL/L (5.0-15.0); Osmolality,Calculated 291.4 MOS/KG (273-304); Potassium 5.4 MMOL/L (3.5-5.1)
[2020-02-10] MEDS: CLINDAMYCIN 300 MG CAPSULE PO SCH (06:53)
[2020-02-10] MEDS ORDERED: LINEZOLID 600 MG TABLET PO SCH (09:00)
[2020-02-10] MEDS: NON-FORMULARY MEDICATION (Sucroferric Oxyhydroxide [Velphoro] 500 MG) PO SCH ×3 (10:15→20:33)
[2020-02-10] MEDS: CALCIUM ACETATE 667 MG CAPSULE PO SCH ×3 (10:15→16:24)
[2020-02-10] MEDS: MAGNESIUM OXIDE 400 MG TABLET PO SCH (10:15)
[2020-02-10] MEDS: ASPIRIN EC 81 MG TABLET PO SCH (10:15)
[2020-02-10] MEDS: PANTOPRAZOLE 40 MG TABLET PO SCH (10:15)
[2020-02-10] MEDS: amLODIPine 10 MG TABLET PO SCH (10:15)
[2020-02-10] MEDS: DOCUSATE SODIUM 100 MG CAPSULE PO SCH ×2 (10:15→20:32)
[2020-02-10] MEDS: carvediloL 25 MG TABLET PO SCH ×2 (10:15→16:24)
[2020-02-10] MEDS: LINEZOLID 600 MG TABLET PO SCH ×2 (10:16→20:32)
[2020-02-10] MEDS: BUDESONIDE/FORMOTEROL 160-4.5 INHALER 6 GM INH SCH ×2 (10:16→20:33)
[2020-02-10] MEDS: GABAPENTIN 300 MG CAPSULE PO SCH (20:32)
[2020-02-10] MEDS: CINACALCET 30 MG TABLET PO SCH (20:32)
[2020-02-11] MEDS: ALBUTEROL/IPRATROPIUM 3 ML NEB RESP TX SCH ×2 (00:26→07:40)
[2020-02-11] MEDS: HEPARIN 10,000 UNIT/10 ML VIAL INTRAPERIT SCH (01:45)
[2020-02-11 08:46] VITALS: BP 175/85
[2020-02-11] MEDS: BUDESONIDE/FORMOTEROL 160-4.5 INHALER 6 GM INH SCH (09:38)
[2020-02-11] MEDS: amLODIPine 10 MG TABLET PO SCH (09:38)
[2020-02-11] MEDS: PANTOPRAZOLE 40 MG TABLET PO SCH (09:38)
[2020-02-11] MEDS: ASPIRIN EC 81 MG TABLET PO SCH (09:38)
[2020-02-11] MEDS: carvediloL 25 MG TABLET PO SCH (09:38)
[2020-02-11] MEDS: LINEZOLID 600 MG TABLET PO SCH (09:38)
[2020-02-11] MEDS: NON-FORMULARY MEDICATION (Sucroferric Oxyhydroxide [Velphoro] 500 MG) PO SCH (09:38)
[2020-02-11] MEDS: DOCUSATE SODIUM 100 MG CAPSULE PO SCH (09:38)
[2020-02-11] MEDS: CALCIUM ACETATE 667 MG CAPSULE PO SCH (09:38)
[2020-02-11] MEDS: MAGNESIUM OXIDE 400 MG TABLET PO SCH (09:38)
== END 2020-02-11 10:58 | disposition home health service (06) ==
LOC: N.ED 02:24 → N.EDINP 02:24 → N.TELEN 03:24
PROVIDERS: ADMIT Internal Medicine; ATTEND Internal Medicine

== ENCOUNTER 2020-03-07 15:29 | Inpatient (IN) ==
[2020-03-07] MEDS ORDERED: ACETAMINOPHEN 325 MG TABLET PO ONE (16:06)
[2020-03-07] MEDS ORDERED: ONDANSETRON 4 MG/2 ML VIAL IV ONE (16:06)
[2020-03-07] MEDS ORDERED: MORPHINE 4 MG/1 ML VIAL IV ONE (16:06)
[2020-03-07] MEDS ORDERED: SODIUM CHLORIDE 0.9% 500 ML IV STA ×2 (16:06→19:02)
[2020-03-07 16:43] LABS: Basophils % 0.1 % (0.0-0.8); Eosinophils % 0.3 % (0.00-10.9); Hematocrit 31.8 VOL% (42.0-52.0); Hemoglobin 10.1 GM/DL (14.0-18.0); Immature Granulocytes % 0.3 %; Immature Granulocytes Absolute 0.02 #; Lymphocytes # 1.3 10*3/uL (1.4-4.0); Lymphocytes % 16.5 % (21.2-54.2); Mean Corpuscular HGB Conc 31.8 GM/DL (32-36); Mean Corpuscular Volume 101.3 FL (87-102); Mean Platelet Volume 8.9 FL (9.6-12.0); Monocytes % 8.3 % (1.7-12.7); Neutrophils % 74.5 % (38.7-73.9); Platelet Count 166 T/CUMM (130-400); Red Blood Count 3.14 MC/CUMM (3.8-5.5)
[2020-03-07 16:53] LABS: INR 1.2; PT Patient Result 12.3 SECS (9.8-11.9)
[2020-03-07 17:20] LABS: Albumin 2.7 G/DL (3.4-5.0); Bilirubin,Total 0.6 MG/DL (0.2-1.0); Calcium 8.8 MG/DL (8.5-10.1); Osmolality,Calculated 299.5 MOS/KG (273-304); Total Protein 7.6 G/DL (6.4-8.3)
[2020-03-07] MEDS ORDERED: oxyCODONE/ACETAMINOPHEN 5-325 MG TABLET PO PRN (19:23)
[2020-03-07] MEDS ORDERED: PROMETHAZINE 25 MG/1 ML VIAL IM PRN (19:23)
[2020-03-07] MEDS ORDERED: metroNIDAZOLE INJ 500 MG in PREMIX 1 EACH IV STA (19:23)
[2020-03-07] MEDS ORDERED: LEVOFLOXACIN INJ 500 MG in PREMIX 1 EACH IV STA (19:23)
[2020-03-07] MEDS ORDERED: ONDANSETRON 4 MG/2 ML VIAL IV PRN (19:23)
[2020-03-07] MEDS ORDERED: SODIUM CHLORIDE 0.9% 50 ML IV SCH (19:30)
[2020-03-07 19:34] LABS: Neutrophils,Peritoneal Fluid 96 %
[2020-03-07 19:35] LABS: RBC,Peritoneal Fluid 38 T/CUMM
[2020-03-07] MEDS: SODIUM CHLORIDE 0.9% 1,000 ML IV SCH (20:30)
[2020-03-07] MEDS: ACETAMINOPHEN 325 MG TABLET PO PRN (21:30)
[2020-03-07] MEDS: DOCUSATE SODIUM 100 MG CAPSULE PO SCH (22:41)
[2020-03-08] MEDS: HYDROmorphone 2 MG/1 ML VIAL IV PRN ×4 (02:02→21:10)
[2020-03-08] MEDS: ACETAMINOPHEN 325 MG TABLET PO PRN (03:48)
[2020-03-08 04:22] LABS: Basophils % 0.2 % (0.0-0.8); Hematocrit 27.9 VOL% (42.0-52.0); Hemoglobin 8.5 GM/DL (14.0-18.0); Immature Granulocytes % 0.2 %; Immature Granulocytes Absolute 0.02 #; Lymphocytes # 2.1 10*3/uL (1.4-4.0); Mean Corpuscular HGB Conc 30.5 GM/DL (32-36); Mean Corpuscular Volume 104.1 FL (87-102); Mean Platelet Volume 9.7 FL (9.6-12.0); Neutrophils % 65.6 % (38.7-73.9); Platelet Count 172 T/CUMM (130-400); Red Blood Count 2.68 MC/CUMM (3.8-5.5); Red Cell Distribution Width 14.8 % (9.3-17.3); White Blood Count 9.1 T/CUMM (4-12)
[2020-03-08 04:52] LABS: Bilirubin,Total 0.4 MG/DL (0.2-1.0); Calcium 8.4 MG/DL (8.5-10.1); Osmolality,Calculated 300.4 MOS/KG (273-304); Total Protein 6.2 G/DL (6.4-8.3)
[2020-03-08 04:58] LABS: Band Neutrophils 13 % (0-10); Lymphocytes 20 % (20-55); Metamyelocytes 1 %; Myelocytes 2 %; Platelet Estimate Adequate; Segmented Neutrophils 53 % (50-85); Total Cells Counted 100
[2020-03-08 04:59] LABS: Hypochromasia 1+
[2020-03-08] MEDS: SODIUM CHLORIDE 0.9% 1,000 ML IV SCH (07:23)
[2020-03-08] MEDS: PANTOPRAZOLE 40 MG TABLET PO SCH (09:37)
[2020-03-08] MEDS: DOCUSATE SODIUM 100 MG CAPSULE PO SCH ×2 (09:37→20:26)
[2020-03-08] MEDS ORDERED: GENTAMICIN 80 MG/2 ML VIAL IV ONE (13:00)
[2020-03-08] MEDS ORDERED: VANCOMYCIN 5,000 MG VIAL IV ONE (13:00)
[2020-03-08] MEDS: GENTAMICIN 80 MG/2 ML VIAL IV SCH ×2 (16:30→20:34)
[2020-03-08] MEDS: VANCOMYCIN 500 MG VIAL IV SCH ×2 (16:51→20:34)
[2020-03-08] MEDS ORDERED: HEPARIN 1,000 UNIT/1 ML VIAL IV SCH (21:00)
[2020-03-09] MEDS: SODIUM CHLORIDE 0.9% 1,000 ML IV SCH ×3 (00:36→07:02)
[2020-03-09] MEDS: PANTOPRAZOLE 40 MG TABLET PO SCH (09:45)
[2020-03-09] MEDS: DOCUSATE SODIUM 100 MG CAPSULE PO SCH ×2 (09:55→20:41)
[2020-03-09] MEDS: GENTAMICIN 80 MG/2 ML VIAL IV SCH ×2 (09:56→14:00)
[2020-03-09] MEDS: VANCOMYCIN 500 MG VIAL IV SCH ×2 (09:57→14:00)
[2020-03-09 10:48] LABS: ABG Base Excess -4.8 MMOL/L (-2.5-2.5); ABG HCO3 20.1 MMOL/L (20-26); ABG Oxygen Saturation 67.1 % (95-100); ABG PCO2 50.7 MM HG (35-48); ABG PH 7.254 (7.35-7.45); ABG PO2 42.9 MM HG (80-95); ABG TCO2 21.4 MMOL/L (23-27)
[2020-03-09 11:00] LABS: Basophils % 0.3 % (0.0-0.8); Hematocrit 26.1 VOL% (42.0-52.0); Hemoglobin 7.8 GM/DL (14.0-18.0); Immature Granulocytes % 0.5 %; Immature Granulocytes Absolute 0.06 #; Lymphocytes # 0.7 10*3/uL (1.4-4.0); Lymphocytes % 6.5 % (21.2-54.2); Mean Corpuscular HGB Conc 29.9 GM/DL (32-36); Mean Corpuscular Volume 104.8 FL (87-102); Mean Platelet Volume 9.7 FL (9.6-12.0); Monocytes % 9.8 % (1.7-12.7); Neutrophils % 82.9 % (38.7-73.9); Platelet Count 147 T/CUMM (130-400); Red Blood Count 2.49 MC/CUMM (3.8-5.5); Red Cell Distribution Width 14.9 % (9.3-17.3); White Blood Count 11.2 T/CUMM (4-12)
[2020-03-09 11:21] LABS: Albumin 1.8 G/DL (3.4-5.0); Band Neutrophils 7 % (0-10); Bilirubin,Total 0.5 MG/DL (0.2-1.0); Calcium 8.3 MG/DL (8.5-10.1); Lymphocytes 6 % (20-55); Metamyelocytes 1 %; Osmolality,Calculated 298.7 MOS/KG (273-304); Segmented Neutrophils 73 % (50-85); Total Cells Counted 100; Total Protein 6.3 G/DL (6.4-8.3)
[2020-03-09 11:22] LABS: Macrocytosis Slight; Platelet Estimate Adequate
[2020-03-09] MEDS: amLODIPine 5 MG TABLET PO SCH (17:30)
[2020-03-09] MEDS: NIFEdipine 10 MG CAPSULE PO PRN (19:23)
[2020-03-09] MEDS: SODIUM ZIRCONIUM CYCLOSILICATE 10 GM PACK PO SCH (20:41)
[2020-03-09] MEDS: cloNIDine 0.1 MG TABLET PO SCH (20:41)
[2020-03-09] MEDS ORDERED: HEPARIN 10,000 UNIT/10 ML VIAL IV SCH (21:00)
[2020-03-09] MEDS: GENTAMICIN 80 MG/2 ML VIAL INTRAPERIT SCH (22:10)
[2020-03-10] MEDS: NIFEdipine 10 MG CAPSULE PO PRN ×3 (01:49→15:05)
[2020-03-10] MEDS: GENTAMICIN 80 MG/2 ML VIAL INTRAPERIT SCH ×4 (03:40→22:03)
[2020-03-10 04:02] LABS: Basophils % 0.2 % (0.0-0.8); Eosinophils % 0.2 % (0.00-10.9); Hematocrit 25.3 VOL% (42.0-52.0); Hemoglobin 7.9 GM/DL (14.0-18.0); Immature Granulocytes % 0.4 %; Immature Granulocytes Absolute 0.05 #; Lymphocytes # 0.9 10*3/uL (1.4-4.0); Lymphocytes % 7.1 % (21.2-54.2); Mean Corpuscular HGB Conc 31.2 GM/DL (32-36); Mean Corpuscular Volume 100.8 FL (87-102); Mean Platelet Volume 9.9 FL (9.6-12.0); Monocytes % 9.1 % (1.7-12.7); Platelet Count 176 T/CUMM (130-400); Red Blood Count 2.51 MC/CUMM (3.8-5.5); Red Cell Distribution Width 14.9 % (9.3-17.3); White Blood Count 12.6 T/CUMM (4-12)
[2020-03-10 04:19] LABS: Calcium 8.6 MG/DL (8.5-10.1); Osmolality,Calculated 298.8 MOS/KG (273-304)
[2020-03-10 04:53] LABS: Band Neutrophils 3 % (0-10); Hypochromasia 1+; Lymphocytes 5 % (20-55); Ovalocytes Slight; Platelet Estimate Adequate; Segmented Neutrophils 83 % (50-85); Total Cells Counted 100
[2020-03-10 04:54] LABS: Macrocytosis Slight
[2020-03-10] MEDS: GENTAMICIN 80 MG/2 ML VIAL IV SCH (07:36)
[2020-03-10] MEDS: SODIUM ZIRCONIUM CYCLOSILICATE 10 GM PACK PO SCH ×3 (08:48→21:55)
[2020-03-10] MEDS: PANTOPRAZOLE 40 MG TABLET PO SCH (08:48)
[2020-03-10] MEDS: amLODIPine 5 MG TABLET PO SCH (08:48)
[2020-03-10] MEDS: cloNIDine 0.1 MG TABLET PO SCH ×2 (08:48→15:04)
[2020-03-10] MEDS: DOCUSATE SODIUM 100 MG CAPSULE PO SCH ×2 (08:48→21:55)
[2020-03-10] MEDS: carvediloL 25 MG TABLET PO SCH (17:53)
[2020-03-10] MEDS: amLODIPine 10 MG TABLET PO SCH (17:54)
[2020-03-10 18:19] LABS: ABG Base Excess 1.4 MMOL/L (-2.5-2.5); ABG HCO3 25.6 MMOL/L (20-26); ABG PH 7.368 (7.35-7.45); ABG PO2 69.8 MM HG (80-95); ABG TCO2 25.3 MMOL/L (23-27)
[2020-03-11] MEDS: GENTAMICIN 80 MG/2 ML VIAL INTRAPERIT SCH ×2 (03:00→09:27)
[2020-03-11 03:53] LABS: Basophils % 0.2 % (0.0-0.8); Eosinophils # 0.1 10*3/uL (0.0-0.87); Eosinophils % 0.6 % (0.00-10.9); Hematocrit 25.2 VOL% (42.0-52.0); Immature Granulocytes % 5.8 %; Immature Granulocytes Absolute 0.95 #; Lymphocytes # 1.4 10*3/uL (1.4-4.0); Lymphocytes % 8.3 % (21.2-54.2); Mean Corpuscular HGB Conc 31.7 GM/DL (32-36); Mean Corpuscular Volume 98.8 FL (87-102); Mean Platelet Volume 9.7 FL (9.6-12.0); Monocytes % 11.3 % (1.7-12.7); Neutrophils % 73.8 % (38.7-73.9); Platelet Count 188 T/CUMM (130-400); Red Blood Count 2.55 MC/CUMM (3.8-5.5); Red Cell Distribution Width 14.6 % (9.3-17.3); White Blood Count 16.3 T/CUMM (4-12)
[2020-03-11 04:34] LABS: Lymphocytes 8 % (20-55); Platelet Estimate Adequate; Segmented Neutrophils 84 % (50-85); Total Cells Counted 100
[2020-03-11 04:36] LABS: Hypochromasia 1+
[2020-03-11 04:37] LABS: Macrocytosis Slight
[2020-03-11] MEDS ORDERED: LIDOCAINE 1%/EPI INJ 20 ML VIAL ONE (06:51)
[2020-03-11] MEDS ORDERED: HEPARIN 5,000 UNIT/1 ML VIAL ONE (06:51)
[2020-03-11] MEDS ORDERED: BUPIVACAINE MPF 0.25% 30 ML VIAL ONE (06:51)
[2020-03-11] MEDS ORDERED: SUGAMMADEX 200 MG/2 ML VIAL IV ONE (08:47)
[2020-03-11 09:26] LABS: ABG Base Excess -0.2 MMOL/L (-2.5-2.5); ABG HCO3 24.2 MMOL/L (20-26); ABG Oxygen Saturation 96.5 % (95-100); ABG PCO2 52.3 MM HG (35-48); ABG PH 7.312 (7.35-7.45); ABG TCO2 24.8 MMOL/L (23-27)
[2020-03-11] MEDS: carvediloL 25 MG TABLET PO SCH ×3 (09:26→16:11)
[2020-03-11] MEDS: SODIUM ZIRCONIUM CYCLOSILICATE 10 GM PACK PO SCH ×2 (09:27→16:10)
[2020-03-11] MEDS: amLODIPine 10 MG TABLET PO SCH ×2 (09:27→10:57)
[2020-03-11] MEDS: PANTOPRAZOLE 40 MG TABLET PO SCH (09:27)
[2020-03-11] MEDS: DOCUSATE SODIUM 100 MG CAPSULE PO SCH ×2 (09:27→20:30)
[2020-03-11] MEDS ORDERED: NEOSTIGMINE 10 MG/10 ML VIAL ONE (09:33)
[2020-03-11 10:28] VITALS: BP 141/84
[2020-03-11] MEDS ORDERED: MAGNESIUM SULF RIDER 2 GM in PREMIX 1 EACH IV ONE (10:35)
[2020-03-11] MEDS ORDERED: VANCOMYCIN INJ 750 MG in SODIUM CHLORIDE 0.9% 250 ML IV PRN (12:09)
[2020-03-11] MEDS ORDERED: GENTAMICIN INJ 120 MG in PREMIX 1 EACH IV PRN (12:10)
[2020-03-11] MEDS ORDERED: VANCOMYCIN INJ 1,750 MG in SODIUM CHLORIDE 0.9% 500 ML IV ONE (13:00)
[2020-03-11] MEDS ORDERED: GENTAMICIN INJ 280 MG in SODIUM CHLORIDE 0.9% 100 ML IV ONE (13:00)
[2020-03-11] MEDS ORDERED: ALBUTEROL 1.25 MG/3 ML NEB RESP TX PRN (17:20)
[2020-03-12] MEDS ORDERED: VECURONIUM 10 MG VIAL IV ONE ×2 (01:20→01:23)
[2020-03-12] MEDS ORDERED: ETOMIDATE 20 MG/10 ML VIAL IV ONE ×2 (01:20→01:22)
[2020-03-12] MEDS ORDERED: DEXTROSE 50% 25 GM/50 ML VIAL IV ONE (01:21)
[2020-03-12] MEDS ORDERED: PHENYLEPHRINE DRIP 40 MG/250 ML PREMIX IV ONE ×2 (01:23→02:11)
[2020-03-12] MEDS ORDERED: NOREPINEPHRINE 4 MG/4 ML VIAL IV ONE (01:25)
[2020-03-12] MEDS ORDERED: SODIUM BICARBONATE 50 MEQ/50 ML SYRINGE IV ONE ×3 (01:52→05:39)
[2020-03-12] MEDS ORDERED: CALCIUM CHLORIDE 1,000 MG/10 ML SYRINGE IV ONE ×5 (01:52→05:41)
[2020-03-12] MEDS ORDERED: EPINEPHrine 1 MG/10 ML SYRINGE ONE ×3 (01:52→05:39)
[2020-03-12 01:57] LABS: Basophils % 0.2 % (0.0-0.8); Eosinophils % 0.2 % (0.00-10.9); Hematocrit 22.9 VOL% (42.0-52.0); Hemoglobin 6.9 GM/DL (14.0-18.0); Immature Granulocytes % 25.3 %; Immature Granulocytes Absolute 4.85 #; Lymphocytes % 26.1 % (21.2-54.2); Mean Corpuscular HGB Conc 30.1 GM/DL (32-36); Mean Platelet Volume 9.6 FL (9.6-12.0); Monocytes % 6.3 % (1.7-12.7); NRBC # 0.36 10*3/uL; Neutrophils % 41.9 % (38.7-73.9); Platelet Count 162 T/CUMM (130-400); Red Blood Count 2.18 MC/CUMM (3.8-5.5); Red Cell Distribution Width 15.8 % (9.3-17.3); White Blood Count 19.2 T/CUMM (4-12)
[2020-03-12] MEDS ORDERED: SODIUM POLYSTYRENE SULFATE 15 GM/60 ML BOTTLE PO STA (02:10)
[2020-03-12] MEDS ORDERED: SODIUM BICARBONATE 50 MEQ/50 ML VIAL IV ONE ×4 (02:13→04:43)
[2020-03-12 02:17] LABS: ABG Base Excess -1.4 MMOL/L (-2.5-2.5); ABG HCO3 23.2 MMOL/L (20-26); ABG Oxygen Saturation 97.3 % (95-100); ABG PCO2 68.7 MM HG (35-48); ABG TCO2 26.3 MMOL/L (23-27)
[2020-03-12 02:19] LABS: ABG PH 7.206 (7.35-7.45)
[2020-03-12 02:22] LABS: Band Neutrophils 4 % (0-10); Lymphocytes 31 % (20-55); Metamyelocytes 2 %; Myelocytes 1 %; Nucleated Red Blood Cells 2 (0-5); Segmented Neutrophils 55 % (50-85); Total Cells Counted 100
[2020-03-12 02:23] LABS: Anisocytosis Slight; Platelet Estimate Normal
[2020-03-12 02:24] LABS: Macrocytosis 1+; Polychromasia 1+
[2020-03-12] MEDS ORDERED: VANCOMYCIN INJ 1,000 MG in SODIUM CHLORIDE 0.9% 250 ML IV ONE (02:24)
[2020-03-12 02:26] LABS: Albumin 1.3 G/DL (3.4-5.0); Bilirubin,Total 1.2 MG/DL (0.2-1.0); Calcium 9.7 MG/DL (8.5-10.1); Osmolality,Calculated 309.5 MOS/KG (273-304); Total Protein 5.3 G/DL (6.4-8.3)
[2020-03-12] MEDS ORDERED: PHENYLEPHRINE DRIP 40 MG/250 ML PREMIX IV PRN (03:17)
[2020-03-12] MEDS ORDERED: NOREPINEPHRINE 8 MG in SODIUM CHLORIDE 0.9% 242 ML IV PRN (03:17)
[2020-03-12] MEDS ORDERED: NOREPINEPHRINE 16 MG in SODIUM CHLORIDE 0.9% 234 ML IV PRN (04:13)
[2020-03-12] MEDS ORDERED: PHENYLEPHRINE INJ 160 MG in SODIUM CHLORIDE 0.9% 234 ML IV PRN (04:14)
[2020-03-12 04:28] LABS: ABG Base Excess -1.1 MMOL/L (-2.5-2.5); ABG HCO3 23.4 MMOL/L (20-26); ABG PCO2 67.6 MM HG (35-48); ABG PH 7.214 (7.35-7.45); ABG PO2 97.8 MM HG (80-95); ABG TCO2 26.4 MMOL/L (23-27)
[2020-03-12] MEDS ORDERED: EPINEPHrine 1 MG/ML VIAL ONE (04:41)
[2020-03-12] MEDS ORDERED: methylPREDNISolone SOD SUC 125 MG/2 ML VIAL IV ONE (04:43)
[2020-03-12] MEDS ORDERED: SODIUM CHLORIDE 0.9% IV PRN (04:52)
[2020-03-12] MEDS ORDERED: EPINEPHRINE IV PRN (04:52)
[2020-03-12] MEDS ORDERED: SODIUM BICARB INJ 150 MEQ in STERILE WATER INJ 850 ML IV SCH (05:00)
[2020-03-12] MEDS ORDERED: VASOPRESSIN 100 UNITS in SODIUM CHLORIDE 0.9% 95 ML IV PRN (05:00)
[2020-03-12] MEDS ORDERED: SODIUM CHLORIDE 0.9% 1,000 ML IV PRN (05:12)
[2020-03-12] MEDS ORDERED: ALBUMIN 5% 12.5 GM/250 ML VIAL IV ONE (05:15)
[2020-03-12] MEDS ORDERED: metroNIDAZOLE INJ 500 MG in PREMIX 1 EACH IV ONE (05:21)
[2020-03-12] MEDS ORDERED: ATROPINE 1 MG/10 ML SYRINGE IV ONE (05:35)
[2020-03-12] MEDS ORDERED: GENTAMICIN INJ 120 MG in PREMIX 1 EACH IV ONE (06:00)
== END 2020-03-12 06:04 | disposition expired | DRG 907 ==
LOC: N.EDINP 15:29 → N.ED 15:29 → N.5E 22:00 → SUATTDRO 03-08 11:29 → N.ICU 03-09 12:02 → N.5E 03-10 17:37 → N.ICU 03-11 10:06
PROVIDERS: ADMIT Internal Medicine; ATTEND Internal Medicine